=== PATIENT | female | born 1955 | race Hispanic/Latino ===

== ENCOUNTER 2020-11-26 | Emergency (ER) | payer MEDICARE, OTHER ==
[2020-11-26] MEDS ORDERED: KETOROLAC 60 MG VIAL (30MG/ML) ONE (01:33)
[2020-11-26] MEDS ORDERED: ORPHENADRINE CITRATE 30 MG/ML ML ONE (01:33)
[2021-04-15] MEDS ORDERED: CYCL10TA16 PO (13:03)
== END 2020-11-26 03:34 | disposition home or self-care (01) ==
LOC: EDH
DX: S09.90XA Unspecified injury of head, initial encounter (principal); M62.830 Muscle spasm of back; M54.5 Low back pain; E11.9 Type 2 diabetes mellitus without complications; Z90.49 Acquired absence of other specified parts of digestive tract; Z90.710 Acquired absence of both cervix and uterus; X58.XXXA Exposure to other specified factors, initial encounter; Y93.89 Activity, other specified; Y92.89 Other specified places as the place of occurrence of the external cause; Y99.8 Other external cause status
CPT/HCPCS: 70450; 72100; 96372 ×2; 99284; J1885; J2360

== ENCOUNTER 2021-04-15 12:01 | Emergency (ER) | payer MEDICARE ==
[~2021-04-15] VITALS: Ht 160 cm; Wt 56.7 kg
[2021-04-15] MEDS: KETOROLAC 60 MG VIAL (30MG/ML) IM SCH ×2 (12:48→13:20)
[2021-04-15 12:51] VITALS: BP 177/80
[2021-04-15 12:53] LABS: APPEARANCE,URINE Turbid (CLEAR); BILIRUBIN,URINE Negative (NEGATIVE); COLOR,URINE Yellow (YELLOW); GLUCOSE, URINE (UA) Negative (NEGATIVE); KETONES,URINE Negative (NEGATIVE); LEUKOCYTE ESTERASE ,URINE Large (NEGATIVE); NITRATE,URINE Negative (NEGATIVE); OCCULT BLOOD,URINE Large (NEGATIVE); PH,URINE 7.5 (5.0-8.0); PROTEIN,URINE POS 2+ mg/dL (NEGATIVE); UROBILINOGEN,URINE 0.2 mg/dL (0.2-1.0)
[2021-04-15] MEDS ORDERED: MELO7.5T12 PO (13:03)
[2021-04-15] MEDS ORDERED: CYCL10 PO (13:03)
[2021-04-15] MEDS ORDERED: CEPH500B PO (13:07)
[2021-04-15 13:09] LABS: BACTERIA,URINE Many /HPF (None Seen); SQUAMOUS EPITHELIAL CELL,UR 0-2 /HPF (0-2); WBC,URINE 26-50 /HPF (0-1)
[2021-04-15] MEDS ORDERED: CEFTRIAXONE 1G VIAL ONE (13:25)
[2021-04-15] MEDS ORDERED: LIDOCAINE HCL-MPF 1% 2ML VIAL ONE (13:25)
[2021-04-15] MEDS ORDERED: CEFTRIAXONE 1G VIAL IM SCH (13:30)
[2021-04-15] MEDS ORDERED: LIDOCAINE HCL-MPF 1% 2ML VIAL IV SCH (14:00)
== END 2021-04-15 13:45 | disposition home or self-care (01) ==
LOC: EDH 12:01
DX: S20.211A Contusion of right front wall of thorax, initial encounter (principal); N39.0 Urinary tract infection, site not specified; E11.9 Type 2 diabetes mellitus without complications; Z79.1 Long term (current) use of non-steroidal anti-inflammatories (NSAID); W22.8XXA Striking against or struck by other objects, initial encounter; Y93.89 Activity, other specified; Y92.89 Other specified places as the place of occurrence of the external cause; Y99.8 Other external cause status
CPT/HCPCS: 71101; 81001; 87077; 87088; 87186; 96372 ×2; 99284; J0696; J1885; J3490

== ENCOUNTER → 2022-02-12 | Outpatient (CLI) | payer MEDICARE ==
[~2022-02-12] MED LIST: AEC81 PO; CYCL10TA16 PO; FURO40TA7 PO; HYDR25 PO; LISI40TA9 PO; MELO7.5T12 PO; METF500S7 PO; METO-408 PO; REGADENOSON 0.4 MG/5 ML PF SYG IVP SCH
== END | disposition home or self-care (01) ==
LOC: RAH 09:00
PROVIDERS: ATTEND Internal Medicine Interventional Cardiology
DX: R07.9 Chest pain, unspecified (principal)
CPT/HCPCS: 78452; 96374; 93017; J2785; A9500 ×2

== ENCOUNTER 2022-04-25 09:14 | Inpatient (IN) | payer MEDICARE ==
[~2022-04-25] VITALS: Ht 160 cm; Wt 60.4 kg
[~2022-04-25 09:14] MED LIST changes: -METF500S7 PO; +METF500S9 PO; -REGADENOSON 0.4 MG/5 ML PF SYG IVP SCH
[2022-04-25] MEDS ORDERED: IPRATROPIUM/ALBUTEROL SULFATE 3 ML SOLUTION IH ONE (09:30)
[2022-04-25 09:35] LABS: BASOPHILS % (AUTO) 0.5 % (0.0-5.0); EOSINOPHILS % (AUTO) 1.2 % (0.0-8.0); HEMATOCRIT 28.9 % (36-48); MEAN CORPUSCULAR HEMOGLOBIN 29.9 pg (27.0-33.0); MEAN CORPUSCULAR HGB CONC 35.6 g/dL (32.0-36.0); MONOCYTES % (AUTO) 10.4 % (3.0-13.0); NEUTROPHILS % (AUTO) 62.5 % (40.0-77.0); PLATELET COUNT (AUTO) 232 K/uL (130-400); RED BLOOD CELL COUNT(AUTO) 3.44 MIL/uL (4.00-5.50); RED CELL DISTRIBUTION WIDTH 12.3 % (11.0-15.5); WHITE BLOOD COUNT (AUTO) 5.7 K/uL (4.8-10.8)
[2022-04-25 09:55] LABS: B-TYPE NATRIURETIC PEPTIDE 1150 pg/mL (0-100)
[2022-04-25 09:57] LABS: ALBUMIN 3.2 g/dL (3.5-5.0); CREATININE 0.8 mg/dL (0.5-1.5); POTASSIUM 4.2 mmol/L (3.5-5.1)
[2022-04-25 10:01] LABS: MAGNESIUM 1.8 mg/dL (1.80-2.40); TOTAL PROTEIN, SERUM 6.7 g/dL (6.0-8.3)
[2022-04-25] MEDS ORDERED: METO-408 PO (10:41)
[2022-04-25] MEDS ORDERED: METF-444 PO (10:41)
[2022-04-25] MEDS ORDERED: AMLO-257 PO (10:41)
[2022-04-25] MEDS: FUROSEMIDE 40MG VIAL IV SCH ×2 (10:49→20:56)
[2022-04-25] MEDS ORDERED: CLONIDINE HCL 0.1 MG TABLET PO PRN ×2 (11:00)
[2022-04-25] MEDS ORDERED: ACETAMINOPHEN 650 MG SUPPOSITORY RC PRN (11:00)
[2022-04-25] MEDS ORDERED: ACETAMINOPHEN 325 MG TAB PO PRN (11:00)
[2022-04-25] MEDS ORDERED: ONDANSETRON 4MG INJ IVP PRN (11:00)
[2022-04-25] MEDS ORDERED: LACTULOSE 20 GM/30 ML UDCUP PO PRN (11:00)
[2022-04-25 11:28] LABS: APPEARANCE,URINE CLOUDY (CLEAR); BILIRUBIN,URINE NEGATIVE (NEGATIVE); COLOR,URINE YELLOW (YELLOW); GLUCOSE, URINE (UA) NEGATIVE (NEGATIVE); KETONES,URINE 10 mg/dL (NEGATIVE); LEUKOCYTE ESTERASE ,URINE 500 Leu/uL (NEGATIVE); NITRATE,URINE 1+ (NEGATIVE); PROTEIN,URINE 100 mg/dL (NEGATIVE); UROBILINOGEN,URINE 0.2 mg/dL (0.2-1.0)
[2022-04-25] MEDS: PANTOPRAZOLE 40 MG TAB DR PO SCH (11:37)
[2022-04-25 11:41] LABS: BACTERIA,URINE MOD /HPF (None Seen); SQUAMOUS EPITHELIAL CELL,UR RARE /HPF (0-2); WBC,URINE TNTC /HPF (0-1)
[2022-04-25] MEDS ORDERED: METOPROLOL TARTRATE 25 MG TAB PO ONE (17:30)
[2022-04-25] MEDS: CEFTRIAXONE 1G VIAL IVP SCH ×2 (17:30→19:27)
[2022-04-25] MEDS ORDERED: AMLODIPINE 5 MG TAB PO ONE (17:30)
[2022-04-25 17:55] VITALS: BP 162/94
[2022-04-25 20:13] VITALS: BP 164/94
[2022-04-25] MEDS: SODIUM CHLORIDE 1,000 MG TAB PO SCH (20:55)
[2022-04-25] MEDS: METOPROLOL SUCCINATE 25 MG TAB.SR.24H PO SCH ×2 (20:55→21:00)
[2022-04-25 22:55] VITALS: BP 159/85
[2022-04-25 22:56] LABS: CREATINE KINASE, TOTAL 36 U/L (21-232); MYOGLOBIN 89 ng/mL (10-92)
[2022-04-26 03:23] VITALS: BP 152/79
[2022-04-26 05:22] LABS: BASOPHILS % (AUTO) 0.7 % (0.0-5.0); EOSINOPHILS % (AUTO) 1.2 % (0.0-8.0); HEMATOCRIT 28.3 % (36-48); MEAN CORPUSCULAR HEMOGLOBIN 29.8 pg (27.0-33.0); MEAN CORPUSCULAR HGB CONC 35.3 g/dL (32.0-36.0); MEAN CORPUSCULAR VOLUME 84.2 fL (79-99); MONOCYTES % (AUTO) 11.2 % (3.0-13.0); NEUTROPHILS % (AUTO) 59.6 % (40.0-77.0); PLATELET COUNT (AUTO) 231 K/uL (130-400); RED BLOOD CELL COUNT(AUTO) 3.36 MIL/uL (4.00-5.50); RED CELL DISTRIBUTION WIDTH 12.3 % (11.0-15.5); WHITE BLOOD COUNT (AUTO) 5.8 K/uL (4.8-10.8)
[2022-04-26 05:54] LABS: CREATININE 0.7 mg/dL (0.5-1.5); MAGNESIUM 1.7 mg/dL (1.80-2.40); PHOSPHORUS 4.8 mg/dL (2.5-4.9); POTASSIUM 3.3 mmol/L (3.5-5.1); THYROID STIMULATING HORMONE 3.96 uIU/mL (0.36-3.74)
[2022-04-26 06:06] LABS: B-TYPE NATRIURETIC PEPTIDE 1200 pg/mL (0-100)
[2022-04-26] MEDS ORDERED: LIDOCAINE HCL-MPF 1% 2ML VIAL IV PRN (06:30)
[2022-04-26] MEDS ORDERED: KCL 20 MEQ ERTAB PO PRN (06:30)
[2022-04-26] MEDS ORDERED: POTASSIUM CHLORIDE 20MEQ/100ML 100 ML IV PRN (06:30)
[2022-04-26 08:00] VITALS: BP 160/85
[2022-04-26] MEDS ORDERED: AMLODIPINE 5 MG TAB PO SCH (09:00)
[2022-04-26] MEDS: POTASSIUM CHLORIDE 10% ELIXIR 20 MEQ/15 ML UDCUP PO PRN ×2 (10:59→17:24)
[2022-04-26] MEDS: ASPIRIN 81MG CHEW TAB PO SCH (11:01)
[2022-04-26] MEDS: SODIUM CHLORIDE 1,000 MG TAB PO SCH ×2 (11:03→21:21)
[2022-04-26] MEDS: METOPROLOL SUCCINATE 25 MG TAB.SR.24H PO SCH ×2 (11:03→21:21)
[2022-04-26] MEDS: ENOXAPARIN SODIUM 40 MG/0.4 ML SYRINGE SQ SCH (11:06)
[2022-04-26] MEDS: FUROSEMIDE 40MG VIAL IV SCH ×2 (11:07→23:20)
[2022-04-26] MEDS: PANTOPRAZOLE 40 MG TAB DR PO SCH (11:09)
[2022-04-26 11:50] VITALS: BP 169/85
[2022-04-26 16:00] VITALS: BP 156/81
[2022-04-26] MEDS: CEFTRIAXONE 1G VIAL IVP SCH (17:23)
[2022-04-26 20:35] VITALS: BP 145/77
[2022-04-26 23:45] VITALS: BP 161/78
[2022-04-27 04:42] VITALS: BP 159/74
[2022-04-27] MEDS: PANTOPRAZOLE 40 MG TAB DR PO SCH (06:40)
[2022-04-27 07:40] VITALS: BP 162/75
[2022-04-27] MEDS: FUROSEMIDE 40MG VIAL IV SCH (09:44)
[2022-04-27] MEDS: LISINOPRIL 10 MG TABLET PO SCH (09:45)
[2022-04-27] MEDS: SODIUM CHLORIDE 1,000 MG TAB PO SCH (09:45)
[2022-04-27] MEDS: ASPIRIN 81MG CHEW TAB PO SCH (09:45)
[2022-04-27] MEDS: SPIRONOLACTONE 25 MG TAB PO SCH ×3 (09:45→23:04)
[2022-04-27] MEDS: METOPROLOL SUCCINATE 50 MG TAB.SR.24H PO SCH (09:45)
[2022-04-27] MEDS: ENOXAPARIN SODIUM 40 MG/0.4 ML SYRINGE SQ SCH (09:45)
[2022-04-27] MEDS ORDERED: MAGNESIUM 2GM PREMIX 50ML 50 ML IV PRN (10:00)
[2022-04-27 10:26] LABS: HEMATOCRIT 32.9 % (36-48); MEAN CORPUSCULAR HEMOGLOBIN 29.5 pg (27.0-33.0); MEAN CORPUSCULAR HGB CONC 34.3 g/dL (32.0-36.0); MEAN CORPUSCULAR VOLUME 85.9 fL (79-99); RED BLOOD CELL COUNT(AUTO) 3.83 MIL/uL (4.00-5.50); RED CELL DISTRIBUTION WIDTH 12.7 % (11.0-15.5); WHITE BLOOD COUNT (AUTO) 6.4 K/uL (4.8-10.8)
[2022-04-27 10:34] LABS: CREATININE 0.9 mg/dL (0.5-1.5)
[2022-04-27 11:56] VITALS: BP 152/74
[2022-04-27 16:00] VITALS: BP_SYST 141; BP_SYST 171; BP_DIAS 83
[2022-04-27] MEDS: CEFTRIAXONE 1G VIAL IVP SCH (17:27)
[2022-04-27 20:00] VITALS: BP 142/77
[2022-04-27] MEDS: LISINOPRIL 20 MG TABLET PO SCH (23:04)
[2022-04-28] VITALS: BP 137/69
[2022-04-28 04:00] VITALS: BP 125/85
[2022-04-28 05:41] LABS: CREATININE 0.9 mg/dL (0.5-1.5); POTASSIUM 3.4 mmol/L (3.5-5.1)
[2022-04-28 08:00] VITALS: BP 175/80
[2022-04-28] MEDS: ENOXAPARIN SODIUM 40 MG/0.4 ML SYRINGE SQ SCH (10:20)
[2022-04-28] MEDS: POTASSIUM CHLORIDE 10% ELIXIR 20 MEQ/15 ML UDCUP PO PRN (10:20)
[2022-04-28] MEDS: METOPROLOL SUCCINATE 50 MG TAB.SR.24H PO SCH (10:21)
[2022-04-28] MEDS: LISINOPRIL 20 MG TABLET PO SCH ×3 (10:21→20:30)
[2022-04-28] MEDS: SPIRONOLACTONE 25 MG TAB PO SCH ×2 (10:21→20:27)
[2022-04-28] MEDS: LISINOPRIL 10 MG TABLET PO SCH (10:21)
[2022-04-28] MEDS: PANTOPRAZOLE 40 MG TAB DR PO SCH (10:21)
[2022-04-28] MEDS: FUROSEMIDE 40 MG TABLET PO SCH ×2 (10:21→16:29)
[2022-04-28] MEDS: ASPIRIN 81MG CHEW TAB PO SCH (10:21)
[2022-04-28 11:37] VITALS: BP 164/83
[2022-04-28 16:00] VITALS: BP 139/73
[2022-04-28 20:00] VITALS: BP 149/77
[2022-04-29] VITALS: BP 139/72
[2022-04-29 04:00] VITALS: BP 161/76
[2022-04-29 05:30] LABS: HEMATOCRIT 26.9 % (36-48); MEAN CORPUSCULAR HGB CONC 34.2 g/dL (32.0-36.0); MEAN CORPUSCULAR VOLUME 87.6 fL (79-99); RED BLOOD CELL COUNT(AUTO) 3.07 MIL/uL (4.00-5.50); RED CELL DISTRIBUTION WIDTH 12.8 % (11.0-15.5); WHITE BLOOD COUNT (AUTO) 5.8 K/uL (4.8-10.8)
[2022-04-29 05:58] LABS: ALBUMIN 2.7 g/dL (3.5-5.0); MAGNESIUM 1.7 mg/dL (1.80-2.40); POTASSIUM 4.2 mmol/L (3.5-5.1); TOTAL PROTEIN, SERUM 5.7 g/dL (6.0-8.3)
[2022-04-29] MEDS: PANTOPRAZOLE 40 MG TAB DR PO SCH (06:24)
[2022-04-29 08:00] VITALS: BP 157/72
[2022-04-29] MEDS ORDERED: LEVOFLOXACIN 750 MG/D5W 150 ML 150 ML IV SCH (09:00)
[2022-04-29] MEDS: LISINOPRIL 20 MG TABLET PO SCH (09:20)
[2022-04-29] MEDS: METOPROLOL SUCCINATE 50 MG TAB.SR.24H PO SCH (09:20)
[2022-04-29] MEDS: SPIRONOLACTONE 25 MG TAB PO SCH (09:20)
[2022-04-29] MEDS: ENOXAPARIN SODIUM 40 MG/0.4 ML SYRINGE SQ SCH (09:20)
[2022-04-29] MEDS: LISINOPRIL 10 MG TABLET PO SCH (09:21)
[2022-04-29] MEDS: FUROSEMIDE 40 MG TABLET PO SCH (09:21)
[2022-04-29] MEDS: ASPIRIN 81MG CHEW TAB PO SCH (09:21)
[2022-04-29 12:00] VITALS: BP 156/68
[2022-04-29] MEDS ORDERED: SPIR25TA6 PO (14:22)
[2022-04-29] MEDS ORDERED: ASPI-1005 PO (14:22)
[2022-04-29] MEDS ORDERED: LEVO750T68 PO (14:22)
[2022-04-29] MEDS ORDERED: LISI20TA24 PO (14:22)
[2022-04-29] MEDS ORDERED: METO50TA9 PO (14:22)
[2022-04-29 16:00] VITALS: BP 150/77
== END 2022-04-29 17:45 | disposition home or self-care (01) | DRG 291 ==
LOC: EDH 09:14 → EDHIP 15:24 → 3BH 17:05
PROVIDERS: ADMIT Internal Medicine Critical Care Medicine; ATTEND Internal Medicine Critical Care Medicine
DX: I11.0 Hypertensive heart disease with heart failure (principal); I50.43 Acute on chronic combined systolic (congestive) and diastolic (congestive) heart failure; J96.01 Acute respiratory failure with hypoxia; E87.1 Hypo-osmolality and hyponatremia; N39.0 Urinary tract infection, site not specified; J91.8 Pleural effusion in other conditions classified elsewhere; D64.9 Anemia, unspecified; N20.0 Calculus of kidney; E11.9 Type 2 diabetes mellitus without complications; T50.2X5A Adverse effect of carbonic-anhydrase inhibitors, benzothiadiazides and other diuretics, initial encounter; F41.9 Anxiety disorder, unspecified; I34.0 Nonrheumatic mitral (valve) insufficiency; Z90.710 Acquired absence of both cervix and uterus; Z83.3 Family history of diabetes mellitus; Z82.49 Family history of ischemic heart disease and other diseases of the circulatory system; Y92.89 Other specified places as the place of occurrence of the external cause
CPT/HCPCS: 36415; 71045; 74176; 78582; 80048; 80053; 81001; 82550; 83735; 83874; 83880; 83930; 83935; 84100; 84443; 84484; 85025; 85027; 85378; 87040; 87077; 87088; 87186; 93005; 93306; 93356; 94640; 94760; 97039; A9540; A9558; G0378; J0696; J1650; J1940; J1956; J3475

== ENCOUNTER 2022-05-14 07:17 | Day surgery (SDC) | payer MEDICARE ==
[2022-05-12 16:02] LABS: BASOPHILS % (AUTO) 0.8 % (0.0-5.0); HEMATOCRIT 28.6 % (36-48); LYMPHOCYTES % (AUTO) 37.5 % (21.0-51.0); MEAN CORPUSCULAR HEMOGLOBIN 29.7 pg (27.0-33.0); MEAN CORPUSCULAR HGB CONC 33.6 g/dL (32.0-36.0); MEAN CORPUSCULAR VOLUME 88.5 fL (79-99); MONOCYTES % (AUTO) 9.7 % (3.0-13.0); NEUTROPHILS % (AUTO) 50.6 % (40.0-77.0); PLATELET COUNT (AUTO) 202 K/uL (130-400); RED BLOOD CELL COUNT(AUTO) 3.23 MIL/uL (4.00-5.50); RED CELL DISTRIBUTION WIDTH 12.6 % (11.0-15.5); WHITE BLOOD COUNT (AUTO) 5.3 K/uL (4.8-10.8)
[2022-05-12 16:04] LABS: APPEARANCE,URINE CLEAR (CLEAR); BILIRUBIN,URINE NEGATIVE (NEGATIVE); COLOR,URINE LIGHT-YELLOW (YELLOW); GLUCOSE, URINE (UA) NEGATIVE (NEGATIVE); KETONES,URINE NEGATIVE (NEGATIVE); LEUKOCYTE ESTERASE ,URINE NEGATIVE Leu/uL (NEGATIVE); NITRATE,URINE NEGATIVE (NEGATIVE); OCCULT BLOOD,URINE NEGATIVE (NEGATIVE); PH,URINE 7.5 (5.0-8.0); PROTEIN,URINE 50 mg/dL (NEGATIVE); UROBILINOGEN,URINE 0.2 mg/dL (0.2-1.0)
[2022-05-12 16:11] LABS: SQUAMOUS EPITHELIAL CELL,UR RARE /HPF (0-2); WBC,URINE 0-1 /HPF (0-1)
[2022-05-12 16:11] LABS: CREATININE 0.8 mg/dL (0.5-1.5); POTASSIUM 4.3 mmol/L (3.5-5.1)
[2022-05-12 16:15] LABS: INR 0.96 (0.85-1.15); PROTHROMBIN TIME 10.5 SEC (9.6-11.6)
[2022-05-12 16:16] LABS: PARTIAL THROMBOPLASTIN TIME 27.7 SEC (26.3-35.5)
[2022-05-13 09:33] VITALS: BP 166/77
[2022-05-14] VITALS (10 sets, daily range): BP systolic 110–162; BP diastolic 47–78
[~2022-05-14] VITALS: Ht 160 cm; Wt 56.1 kg
[~2022-05-14 07:17] MED LIST changes: -AEC81 PO; +AMLO-257 PO; -CYCL10TA16 PO; -FURO40TA7 PO; -HYDR25 PO; -LISI40TA9 PO; -MELO7.5T12 PO; +METF-444 PO; -METF500S9 PO
[2022-05-14] MEDS ORDERED: 0.9%NACL 1000ML 1,000 ML IV SCH (08:00)
[2022-05-14] MEDS ORDERED: DiphenhydrAMINE HCL 50 MG/ML VIAL IVP SCH (08:00)
[2022-05-14 08:03] LABS: CREATININE 0.8 mg/dL (0.5-1.5); POTASSIUM 4.9 mmol/L (3.5-5.1)
[2022-05-14] MEDS ORDERED: BIVALIRUDIN 250 MG/VIAL IV ONE (09:30)
[2022-05-14] MEDS ORDERED: IOHEXOL 350 MG/ML 100ML INFUS..BTL IV ONE (09:30)
[2022-05-14] MEDS ORDERED: NITROGLYCERIN 50MG VIAL ONE (09:30)
[2022-05-14] MEDS ORDERED: MIDAZOLAM HCL 1 MG/ML 2ML VIAL ONE (09:30)
[2022-05-14] MEDS ORDERED: HEPARIN 10,000 UNIT/10ML (1,000 UNIT/ML) VIAL ONE (09:30)
[2022-05-14] MEDS ORDERED: FENTANYL CITRATE PF 50 MCG/1 ML 2ML VIAL ONE (09:31)
[2022-05-14] MEDS ORDERED: IOHEXOL-350 50ML VIAL IV ONE (09:32)
[2022-05-14] MEDS ORDERED: NITROGLYCERIN 4.1 GM SPRAY TL ONE (10:52)
[2022-05-14] MEDS ORDERED: HYDRALAZINE 20MG/ML VIAL ONE ×2 (10:54→11:01)
== END 2022-05-14 16:00 | disposition home or self-care (01) ==
LOC: DAH 07:17
PROVIDERS: ATTEND Internal Medicine Interventional Cardiology
DX: I25.119 Atherosclerotic heart disease of native coronary artery with unspecified angina pectoris (principal); I34.2 Nonrheumatic mitral (valve) stenosis; I11.0 Hypertensive heart disease with heart failure; I50.43 Acute on chronic combined systolic (congestive) and diastolic (congestive) heart failure; E11.9 Type 2 diabetes mellitus without complications; Z79.01 Long term (current) use of anticoagulants; Z79.899 Other long term (current) drug therapy; Z82.49 Family history of ischemic heart disease and other diseases of the circulatory system; Z83.3 Family history of diabetes mellitus; Z98.890 Other specified postprocedural states; Z90.49 Acquired absence of other specified parts of digestive tract; Z90.710 Acquired absence of both cervix and uterus
CPT/HCPCS: 80048 ×2; 85025; 85610; 85730; 81001; 36415 ×2; 93005; 93460; 82948 ×2; C1894 ×2; C1769; C1760; Q9965 ×2; J1200; J3010; J7030; J0360 ×2; J2250; J1644; J3490; Q9967; A4215; A4222; A4221; A4663; A4216; A4606; A4223 ×3; 99156; 99157; J0583

== ENCOUNTER → 2022-12-25 | Outpatient (CLI) | payer MEDICARE ==
[2022-12-25 14:32] LABS: CREATININE 1.2 mg/dL (0.5-1.5); MAGNESIUM 2.2 mg/dL (1.80-2.40); POTASSIUM 4.4 mmol/L (3.5-5.1)
== END | disposition home or self-care (01) ==
LOC: LAB 09:52
PROVIDERS: ATTEND Internal Medicine Cardiovascular Disease
DX: E87.1 Hypo-osmolality and hyponatremia (principal)
CPT/HCPCS: 36415; 80048; 83735; 83880

== ENCOUNTER → 2023-03-08 | Outpatient (CLI) | payer MEDICARE ==
[2023-03-08 12:19] LABS: CREATININE 1.2 mg/dL (0.5-1.5); POTASSIUM 4.4 mmol/L (3.5-5.1)
== END | disposition home or self-care (01) ==
LOC: LAB 08:49
PROVIDERS: ATTEND Internal Medicine Cardiovascular Disease
DX: I50.22 Chronic systolic (congestive) heart failure (principal); E11.9 Type 2 diabetes mellitus without complications
CPT/HCPCS: 36415; 80048

== ENCOUNTER → 2023-04-12 | Outpatient (CLI) | payer MEDICARE ==
[2023-04-12 11:55] LABS: BASOPHILS # (AUTO) 0.04 K/uL (0.00-0.20); BASOPHILS % (AUTO) 0.6 % (0.0-5.0); EOSINOPHILS # (AUTO) 0.21 K/uL (0.00-0.70); EOSINOPHILS % (AUTO) 3.1 % (0.0-8.0); HEMATOCRIT 31.8 % (36-48); IMMATURE GRANULOCYTE ABSOLUTE 0.07 K/uL (0-1); LYMPHOCYTES # (AUTO) 1.6 K/uL (1.0-4.8); MEAN CORPUSCULAR HEMOGLOBIN 30.6 pg (27.0-33.0); MEAN CORPUSCULAR HGB CONC 31.8 g/dL (32.0-36.0); MEAN CORPUSCULAR VOLUME 96.4 fL (79-99); MONOCYTES # (AUTO) 0.6 K/uL (0.1-1.0); MONOCYTES % (AUTO) 9.3 % (3.0-13.0); NEUTROPHILS # (AUTO) 4.2 K/uL (1.8-7.7); PLATELET COUNT (AUTO) 234 K/uL (130-400); RED CELL DISTRIBUTION WIDTH 15.2 % (11.0-15.5); WHITE BLOOD COUNT (AUTO) 6.8 K/uL (4.8-10.8)
[2023-04-12 12:05] LABS: INR < 0.93 (0.85-1.15); PROTHROMBIN TIME 10.4 SEC (9.6-11.6)
[2023-04-12 12:06] LABS: PARTIAL THROMBOPLASTIN TIME 27.6 SEC (26.3-35.5); POTASSIUM 4.5 mmol/L (3.5-5.1)
== END | disposition home or self-care (01) ==
LOC: LAB 09:29
PROVIDERS: ATTEND Internal Medicine Cardiovascular Disease
DX: I25.810 Atherosclerosis of coronary artery bypass graft(s) without angina pectoris (principal); I25.2 Old myocardial infarction; I70.239 Atherosclerosis of native arteries of right leg with ulceration of unspecified site; I50.42 Chronic combined systolic (congestive) and diastolic (congestive) heart failure; Z95.1 Presence of aortocoronary bypass graft; Z79.899 Other long term (current) drug therapy
CPT/HCPCS: 36415; 80048; 85025; 85610; 85730

== ENCOUNTER → 2023-05-25 | Outpatient (CLI) | payer MEDICARE ==
[2023-05-25 12:21] LABS: POTASSIUM 4.1 mmol/L (3.5-5.1)
== END | disposition home or self-care (01) ==
LOC: LAB 09:06
PROVIDERS: ATTEND Internal Medicine Cardiovascular Disease
DX: I25.810 Atherosclerosis of coronary artery bypass graft(s) without angina pectoris (principal); R53.83 Other fatigue; D64.9 Anemia, unspecified
CPT/HCPCS: 36415; 80048; 83735; 83880

== ENCOUNTER → 2023-06-07 | Outpatient (CLI) | payer MEDICARE ==
[2023-06-07 11:57] LABS: CREATININE 1.1 mg/dL (0.5-1.5); MAGNESIUM 2.4 mg/dL (1.80-2.40); POTASSIUM 4.2 mmol/L (3.5-5.1)
[2023-06-07 11:59] LABS: BASOPHILS # (AUTO) 0.04 K/uL (0.00-0.20); BASOPHILS % (AUTO) 0.8 % (0.0-5.0); EOSINOPHILS % (AUTO) 1.9 % (0.0-8.0); HEMATOCRIT 36.7 % (36-48); IMMATURE GRANULOCYTE ABSOLUTE 0.02 K/uL (0-1); LYMPHOCYTES # (AUTO) 1.6 K/uL (1.0-4.8); LYMPHOCYTES % (AUTO) 31.1 % (21.0-51.0); MEAN CORPUSCULAR HEMOGLOBIN 31.3 pg (27.0-33.0); MEAN CORPUSCULAR HGB CONC 31.9 g/dL (32.0-36.0); MEAN CORPUSCULAR VOLUME 98.1 fL (79-99); MONOCYTES # (AUTO) 0.6 K/uL (0.1-1.0); MONOCYTES % (AUTO) 10.4 % (3.0-13.0); NEUTROPHILS # (AUTO) 2.9 K/uL (1.8-7.7); NEUTROPHILS % (AUTO) 55.4 % (40.0-77.0); PLATELET COUNT (AUTO) 268 K/uL (130-400); RED BLOOD CELL COUNT(AUTO) 3.74 MIL/uL (4.00-5.50); RED CELL DISTRIBUTION WIDTH 13.4 % (11.0-15.5); WHITE BLOOD COUNT (AUTO) 5.3 K/uL (4.8-10.8)
== END | disposition home or self-care (01) ==
LOC: LAB 08:49
PROVIDERS: ATTEND Internal Medicine Cardiovascular Disease
DX: I50.22 Chronic systolic (congestive) heart failure (principal); D64.9 Anemia, unspecified
CPT/HCPCS: 36415; 80048; 83735; 85025

== ENCOUNTER 2024-01-14 09:32 | Emergency (ER) | payer MEDICARE ==
[~2024-01-14] VITALS: Ht 160 cm; Wt 59.0 kg
[2024-01-14 10:20] LABS: BASOPHILS # (AUTO) 0.02 K/uL (0.00-0.20); BASOPHILS % (AUTO) 0.4 % (0.0-5.0); EOSINOPHILS # (AUTO) 0.05 K/uL (0.00-0.70); EOSINOPHILS % (AUTO) 1.1 % (0.0-8.0); HEMATOCRIT 34.5 % (36-48); IMMATURE GRANULOCYTE ABSOLUTE 0.02 K/uL (0-1); LYMPHOCYTES % (AUTO) 21.3 % (21.0-51.0); MEAN CORPUSCULAR HEMOGLOBIN 30.5 pg (27.0-33.0); MEAN CORPUSCULAR HGB CONC 33.9 g/dL (32.0-36.0); MEAN CORPUSCULAR VOLUME 90.1 fL (79-99); MONOCYTES # (AUTO) 0.4 K/uL (0.1-1.0); MONOCYTES % (AUTO) 8.2 % (3.0-13.0); NEUTROPHILS # (AUTO) 3.3 K/uL (1.8-7.7); NEUTROPHILS % (AUTO) 68.6 % (40.0-77.0); PLATELET COUNT (AUTO) 196 K/uL (130-400); RED BLOOD CELL COUNT(AUTO) 3.83 MIL/uL (4.00-5.50); RED CELL DISTRIBUTION WIDTH 13.7 % (11.0-15.5); WHITE BLOOD COUNT (AUTO) 4.7 K/uL (4.8-10.8)
[2024-01-14 10:30] LABS: CREATININE 1.1 mg/dL (0.5-1.0); POTASSIUM 3.6 mmol/L (3.5-5.1)
[2024-01-14 10:34] LABS: ALBUMIN 3.4 g/dL (3.5-5.0); BILIRUBIN,TOTAL 0.6 mg/dL (0.2-1.0); TOTAL PROTEIN, SERUM 6.7 g/dL (6.0-8.3)
[2024-01-14 11:09] LABS: B-TYPE NATRIURETIC PEPTIDE 2950 pg/mL (0-100)
[2024-01-14] MEDS: FUROSEMIDE 100MG VIAL IVP ONE (11:22)
[2024-01-14] MEDS ORDERED: FURO80TA87 PO (12:31)
[2024-01-14 14:20] VITALS: BP 132/78; PULSE 78; RESP 18; O2SAT 98
== END 2024-01-14 14:22 | disposition home or self-care (01) ==
LOC: EDH 09:32
DX: I13.0 Hypertensive heart and chronic kidney disease with heart failure and stage 1 through stage 4 chronic kidney disease, or unspecified chronic kidney disease (principal); E11.22 Type 2 diabetes mellitus with diabetic chronic kidney disease; N18.9 Chronic kidney disease, unspecified; J90 Pleural effusion, not elsewhere classified; Z79.84 Long term (current) use of oral hypoglycemic drugs; Z90.49 Acquired absence of other specified parts of digestive tract; Z90.710 Acquired absence of both cervix and uterus; Z95.1 Presence of aortocoronary bypass graft
CPT/HCPCS: 99285; 96374; 71046; 84484; 80053; 83880; 85025; 36415; 93005; J1940

== ENCOUNTER 2024-01-18 10:19 | Observation (INO) | payer MEDICARE ==
[~2024-01-18] VITALS: Ht 160 cm; Wt 59.9 kg
[~2024-01-18 10:19] MED LIST changes: +FURO80TA87 PO
[2024-01-18 10:43] LABS: BASOPHILS # (AUTO) 0.02 K/uL (0.00-0.20); BASOPHILS % (AUTO) 0.4 % (0.0-5.0); EOSINOPHILS # (AUTO) 0.06 K/uL (0.00-0.70); EOSINOPHILS % (AUTO) 1.3 % (0.0-8.0); HEMATOCRIT 38.2 % (36-48); IMMATURE GRANULOCYTE ABSOLUTE 0.02 K/uL (0-1); LYMPHOCYTES % (AUTO) 22.8 % (21.0-51.0); MEAN CORPUSCULAR HEMOGLOBIN 29.8 pg (27.0-33.0); MEAN CORPUSCULAR HGB CONC 32.7 g/dL (32.0-36.0); MEAN CORPUSCULAR VOLUME 91.2 fL (79-99); MONOCYTES # (AUTO) 0.4 K/uL (0.1-1.0); NEUTROPHILS % (AUTO) 67.1 % (40.0-77.0); PLATELET COUNT (AUTO) 196 K/uL (130-400); RED BLOOD CELL COUNT(AUTO) 4.19 MIL/uL (4.00-5.50); RED CELL DISTRIBUTION WIDTH 13.7 % (11.0-15.5); WHITE BLOOD COUNT (AUTO) 4.5 K/uL (4.8-10.8)
[2024-01-18 10:51] LABS: CREATININE 1.1 mg/dL (0.5-1.0)
[2024-01-18 10:54] LABS: INR 0.96 (0.85-1.15); PROTHROMBIN TIME 11.4 SEC (9.6-11.6)
[2024-01-18 10:55] LABS: PARTIAL THROMBOPLASTIN TIME 27.6 SEC (26.3-35.5)
[2024-01-18 11:32] LABS: B-TYPE NATRIURETIC PEPTIDE 3140 pg/mL (0-100)
[2024-01-18] MEDS ORDERED: ACETAMINOPHEN 500 MG TABLET PO PRN (12:30)
[2024-01-18] MEDS: FUROSEMIDE 40MG VIAL IV ONE (13:33)
[2024-01-18] MEDS: CARVEDILOL 6.25 MG TABLET PO SCH (13:33)
[2024-01-18] MEDS ORDERED: FURO40TA5 PO (15:04)
[2024-01-18] MEDS ORDERED: SPIR25TA PO (15:04)
[2024-01-18] MEDS ORDERED: CARV6.2579 PO (15:04)
[2024-01-18] MEDS ORDERED: SACU1TAB PO (15:04)
[2024-01-18] MEDS: HYDRALAZINE 20MG/ML VIAL IV PRN (16:03)
[2024-01-18] MEDS: FUROSEMIDE 40MG VIAL IV SCH (18:03)
[2024-01-18 19:51] VITALS: BP 157/89; PULSE 88; RESP 16
[2024-01-18 21:59] VITALS: O2SAT 97
[2024-01-18] MEDS: FAMOTIDINE 20MG VIAL IV SCH (21:59)
[2024-01-19] VITALS (7 sets, daily range): BP systolic 153–172; BP diastolic 76–91; PULSE 81–86; RESP 16–20; O2SAT 94–97
[2024-01-19] MEDS: ALPRAZOLAM 0.5 MG TABLET PO ONE (01:15)
[2024-01-19 08:41] LABS: BASOPHILS # (AUTO) 0.02 K/uL (0.00-0.20); BASOPHILS % (AUTO) 0.5 % (0.0-5.0); EOSINOPHILS # (AUTO) 0.08 K/uL (0.00-0.70); HEMATOCRIT 32.9 % (36-48); IMMATURE GRANULOCYTE ABSOLUTE 0.01 K/uL (0-1); MEAN CORPUSCULAR HEMOGLOBIN 29.5 pg (27.0-33.0); MEAN CORPUSCULAR HGB CONC 33.1 g/dL (32.0-36.0); MEAN CORPUSCULAR VOLUME 88.9 fL (79-99); MONOCYTES # (AUTO) 0.4 K/uL (0.1-1.0); MONOCYTES % (AUTO) 10.5 % (3.0-13.0); NEUTROPHILS # (AUTO) 2.6 K/uL (1.8-7.7); NEUTROPHILS % (AUTO) 62.8 % (40.0-77.0); PLATELET COUNT (AUTO) 183 K/uL (130-400); RED CELL DISTRIBUTION WIDTH 13.8 % (11.0-15.5); WHITE BLOOD COUNT (AUTO) 4.1 K/uL (4.8-10.8)
[2024-01-19 08:47] LABS: CREATININE 1.1 mg/dL (0.5-1.0); MAGNESIUM 1.8 mg/dL (1.80-2.40); POTASSIUM 3.5 mmol/L (3.5-5.1)
[2024-01-19] MEDS: PANTOPRAZOLE 40 MG TAB DR PO SCH (09:46)
[2024-01-19] MEDS: SACUBITRIL/VALSARTAN 1 EACH TABLET PO SCH (09:46)
[2024-01-19] MEDS: SPIRONOLACTONE 25 MG TAB PO SCH (09:47)
[2024-01-19] MEDS: ASPIRIN 81 MG EC TAB PO SCH (09:47)
[2024-01-19] MEDS ORDERED: POTASSIUM CHLORIDE 20MEQ/100ML 100 ML IV PRN (12:30)
[2024-01-19] MEDS: CARVEDILOL 12.5 MG TABLET PO SCH (20:32)
[2024-01-19] MEDS: KCL 20 MEQ ERTAB PO PRN (20:32)
[2024-01-19] MEDS: MAGNESIUM 2GM PREMIX 50ML 50 ML IV PRN (20:33)
[2024-01-19] MEDS: POTASSIUM CHLORIDE 10% ELIXIR 20 MEQ/15 ML UDCUP PO PRN (23:02)
[2024-01-20] VITALS: BP 170/90; PULSE 83; RESP 17
[2024-01-20 04:00] VITALS: BP 138/60; PULSE 76; RESP 18
[2024-01-20 05:27] LABS: BASOPHILS # (AUTO) 0.03 K/uL (0.00-0.20); BASOPHILS % (AUTO) 0.7 % (0.0-5.0); EOSINOPHILS # (AUTO) 0.09 K/uL (0.00-0.70); EOSINOPHILS % (AUTO) 2.1 % (0.0-8.0); HEMATOCRIT 31.5 % (36-48); IMMATURE GRANULOCYTE ABSOLUTE 0.01 K/uL (0-1); LYMPHOCYTES # (AUTO) 1.1 K/uL (1.0-4.8); LYMPHOCYTES % (AUTO) 25.9 % (21.0-51.0); MEAN CORPUSCULAR HGB CONC 32.7 g/dL (32.0-36.0); MEAN CORPUSCULAR VOLUME 91.8 fL (79-99); MONOCYTES # (AUTO) 0.5 K/uL (0.1-1.0); MONOCYTES % (AUTO) 11.5 % (3.0-13.0); NEUTROPHILS # (AUTO) 2.6 K/uL (1.8-7.7); NEUTROPHILS % (AUTO) 59.6 % (40.0-77.0); PLATELET COUNT (AUTO) 159 K/uL (130-400); RED BLOOD CELL COUNT(AUTO) 3.43 MIL/uL (4.00-5.50); RED CELL DISTRIBUTION WIDTH 13.8 % (11.0-15.5); WHITE BLOOD COUNT (AUTO) 4.3 K/uL (4.8-10.8)
[2024-01-20 05:48] LABS: CREATININE 1.4 mg/dL (0.5-1.0); MAGNESIUM 2.1 mg/dL (1.80-2.40)
[2024-01-20 05:51] LABS: B-TYPE NATRIURETIC PEPTIDE 3060 pg/mL (0-100)
[2024-01-20 08:00] VITALS: O2SAT 96
[2024-01-20 08:14] VITALS: BP 160/79; PULSE 80; RESP 17
[2024-01-20] MEDS: SPIRONOLACTONE 25 MG TAB PO SCH (08:17)
[2024-01-20] MEDS: ENOXAPARIN SODIUM 30 MG/0.3 ML SQ SCH (08:20)
[2024-01-20 12:53] VITALS: BP 146/74; PULSE 75; RESP 17
[2024-01-20] MEDS ORDERED: AEC81 PO (15:57)
[2024-01-20] MEDS ORDERED: CARV12.580 PO (15:57)
[2024-01-20] MEDS ORDERED: SPIR25TA6 PO (15:57)
[2024-01-20] MEDS ORDERED: FURO40TA5 PO (16:02)
[2024-01-20] MEDS ORDERED: HYDRALAZINE 25MG TABLET PO SCH (21:00)
== END 2024-01-20 16:30 | disposition home or self-care (01) ==
LOC: EDH 10:19 → INTOOBSV 12:16 → EDHIP 12:16 → 2AH 19:30 → 3AH 01-19 14:57
PROVIDERS: ADMIT Internal Medicine; ATTEND Internal Medicine
DX: I11.0 Hypertensive heart disease with heart failure (principal); I50.43 Acute on chronic combined systolic (congestive) and diastolic (congestive) heart failure; I25.10 Atherosclerotic heart disease of native coronary artery without angina pectoris; E78.5 Hyperlipidemia, unspecified; Z95.1 Presence of aortocoronary bypass graft; E78.00 Pure hypercholesterolemia, unspecified; E11.9 Type 2 diabetes mellitus without complications; I25.5 Ischemic cardiomyopathy; I08.1 Rheumatic disorders of both mitral and tricuspid valves; J98.11 Atelectasis; I27.20 Pulmonary hypertension, unspecified; Z90.710 Acquired absence of both cervix and uterus; Z90.49 Acquired absence of other specified parts of digestive tract; Z79.899 Other long term (current) drug therapy
CPT/HCPCS: 96376 ×3; 99285; 84484 ×3; 80048 ×3; 83880 ×2; 85025 ×3; 85610; 85730; 36415 ×3; 71045; 71250; 93306; 96374; 96375 ×2; 93005; 83735 ×2; 82948 ×4; J3490 ×2; J0360 ×2; J1940 ×5; G0378 ×27; J3475; J1650

== ENCOUNTER 2024-04-08 16:11 | Observation (INO) | payer MEDICARE ==
[~2024-04-08] VITALS: Ht 160 cm; Wt 58.1 kg
[~2024-04-08 16:11] MED LIST changes: -AMLO-257 PO; +CARV6.25 PO; -FURO80TA87 PO; -METF-444 PO; -METO-408 PO; +SACU1TAB PO; +SPIR25TA6 PO
[2024-04-08 17:00] LABS: BASOPHILS # (AUTO) 0.01 K/uL (0.00-0.20); BASOPHILS % (AUTO) 0.2 % (0.0-5.0); EOSINOPHILS # (AUTO) 0.01 K/uL (0.00-0.70); EOSINOPHILS % (AUTO) 0.2 % (0.0-8.0); HEMATOCRIT 34.8 % (36-48); IMMATURE GRANULOCYTE ABSOLUTE 0.04 K/uL (0-1); LYMPHOCYTES # (AUTO) 0.7 K/uL (1.0-4.8); LYMPHOCYTES % (AUTO) 13.3 % (21.0-51.0); MEAN CORPUSCULAR HEMOGLOBIN 28.8 pg (27.0-33.0); MEAN CORPUSCULAR HGB CONC 33.3 g/dL (32.0-36.0); MEAN CORPUSCULAR VOLUME 86.4 fL (79-99); MONOCYTES # (AUTO) 0.2 K/uL (0.1-1.0); MONOCYTES % (AUTO) 4.6 % (3.0-13.0); NEUTROPHILS # (AUTO) 4.1 K/uL (1.8-7.7); NEUTROPHILS % (AUTO) 80.9 % (40.0-77.0); PLATELET COUNT (AUTO) 134 K/uL (130-400); RED BLOOD CELL COUNT(AUTO) 4.03 MIL/uL (4.00-5.50); RED CELL DISTRIBUTION WIDTH 15.4 % (11.0-15.5)
[2024-04-08 17:07] LABS: CREATININE 1.6 mg/dL (0.5-1.0); POTASSIUM 4.4 mmol/L (3.5-5.1)
[2024-04-08 17:20] LABS: B-TYPE NATRIURETIC PEPTIDE 3160 pg/mL (0-100)
[2024-04-08] MEDS: furoSEMIDE 100MG VIAL 10 MG/ML VIAL IVP ONE (18:54)
[2024-04-08 19:56] LABS: APPEARANCE,URINE CLEAR (CLEAR); BILIRUBIN,URINE NEGATIVE (NEGATIVE); COLOR,URINE LIGHT-YELLOW (YELLOW); GLUCOSE, URINE (UA) 500 mg/dL (NEGATIVE); KETONES,URINE NEGATIVE (NEGATIVE); LEUKOCYTE ESTERASE ,URINE NEGATIVE Leu/uL (NEGATIVE); NITRATE,URINE NEGATIVE (NEGATIVE); OCCULT BLOOD,URINE NEGATIVE (NEGATIVE); PH,URINE 5.5 (5.0-8.0); PROTEIN,URINE 70 mg/dL (NEGATIVE); UROBILINOGEN,URINE 0.2 mg/dL (0.2-1.0)
[2024-04-08 19:58] LABS: ADD UA MICROSCOPIC YES
[2024-04-08 19:59] LABS: BACTERIA,URINE MOD /HPF (None Seen); MUCUS,URINE RARE LPF (None Seen); SQUAMOUS EPITHELIAL CELL,UR RARE /HPF (0-2)
[2024-04-08] MEDS ORDERED: DEXTROSE 50%-WATER 50 ML DISP.SYRIN IV PRN (20:00)
[2024-04-08] MEDS ORDERED: GLUCAGON 1MG KIT 1 MG ML IM PRN (20:00)
[2024-04-08] MEDS ORDERED: NITROGLYCERIN 0.4 MG SL TAB SL PRN (20:00)
[2024-04-08] MEDS ORDERED: MAGNESIUM 2GM PREMIX 50ML 50 ML IV PRN (20:30)
[2024-04-08] MEDS ORDERED: POTASSIUM CHLORIDE 20MEQ/100ML 100 ML IV PRN (20:30)
[2024-04-08] MEDS ORDERED: POTASSIUM CHLORIDE 10% ELIXIR 20 MEQ/15 ML UDCUP PO PRN (20:30)
[2024-04-08] MEDS: FAMOTIDINE 20MG VIAL IV SCH (20:42)
[2024-04-08] MEDS: INSULIN humuLIN R 100 UNIT/ML 3ML SQ SCH (21:00)
[2024-04-08] MEDS ORDERED: hydrALAZine 20MG/ML VIAL IV PRN (21:00)
[2024-04-08] MEDS ORDERED: FURO40TA5 PO (21:40)
[2024-04-08 22:10] VITALS: BP 166/95; PULSE 68; RESP 18; TEMP 97.5
[2024-04-09] MEDS: NITROGLYCERIN 1GM OINT 1 INCH/1GM TD SCH (00:06)
[2024-04-09 03:00] VITALS: BP 147/80; PULSE 63; RESP 18; TEMP 97.6
[2024-04-09 05:59] LABS: BASOPHILS # (AUTO) 0.01 K/uL (0.00-0.20); BASOPHILS % (AUTO) 0.2 % (0.0-5.0); EOSINOPHILS # (AUTO) 0.03 K/uL (0.00-0.70); EOSINOPHILS % (AUTO) 0.6 % (0.0-8.0); HEMATOCRIT 31.4 % (36-48); IMMATURE GRANULOCYTE ABSOLUTE 0.01 K/uL (0-1); LYMPHOCYTES % (AUTO) 20.4 % (21.0-51.0); MEAN CORPUSCULAR HEMOGLOBIN 28.8 pg (27.0-33.0); MEAN CORPUSCULAR HGB CONC 33.4 g/dL (32.0-36.0); MEAN CORPUSCULAR VOLUME 86.3 fL (79-99); MONOCYTES # (AUTO) 0.4 K/uL (0.1-1.0); MONOCYTES % (AUTO) 9.1 % (3.0-13.0); NEUTROPHILS # (AUTO) 3.4 K/uL (1.8-7.7); NEUTROPHILS % (AUTO) 69.5 % (40.0-77.0); PLATELET COUNT (AUTO) 135 K/uL (130-400); RED BLOOD CELL COUNT(AUTO) 3.64 MIL/uL (4.00-5.50); RED CELL DISTRIBUTION WIDTH 15.3 % (11.0-15.5); WHITE BLOOD COUNT (AUTO) 4.9 K/uL (4.8-10.8)
[2024-04-09 06:23] LABS: BILIRUBIN,TOTAL 0.7 mg/dL (0.2-1.0); CREATININE 1.6 mg/dL (0.5-1.0); MAGNESIUM 2.2 mg/dL (1.80-2.40)
[2024-04-09 06:29] LABS: B-TYPE NATRIURETIC PEPTIDE 4100 pg/mL (0-100)
[2024-04-09 06:39] LABS: HEMOGLOBIN A1C 8.9 % (4.0-6.0)
[2024-04-09 08:00] VITALS: BP 161/85; PULSE 65; RESP 18; TEMP 97.4
[2024-04-09 08:20] VITALS: O2SAT 100
[2024-04-09] MEDS: SPIRONOLACTONE 25 MG TAB PO SCH (08:37)
[2024-04-09] MEDS: SACUBITRIL/VALSARTAN 1 EACH TABLET PO SCH (08:37)
[2024-04-09] MEDS: carVEDIlol 6.25 MG TABLET PO SCH (08:37)
[2024-04-09] MEDS: furoSEMIDE 20MG VIAL IV SCH (08:40)
[2024-04-09 12:00] VITALS: BP 153/86; PULSE 62; RESP 18; TEMP 98.2
[2024-04-09 16:00] VITALS: BP 153/79; PULSE 64; RESP 18; TEMP 97.6
[2024-04-09 20:00] VITALS: BP 158/78; PULSE 64; RESP 19; TEMP 98.2; O2SAT 99
[2024-04-10] VITALS: BP 147/76; PULSE 63; RESP 18; TEMP 97.8
[2024-04-10 04:00] VITALS: BP 156/78; PULSE 62; RESP 18; TEMP 98.1
[2024-04-10 05:13] LABS: BASOPHILS # (AUTO) 0.02 K/uL (0.00-0.20); BASOPHILS % (AUTO) 0.5 % (0.0-5.0); EOSINOPHILS # (AUTO) 0.05 K/uL (0.00-0.70); EOSINOPHILS % (AUTO) 1.1 % (0.0-8.0); HEMATOCRIT 30.8 % (36-48); IMMATURE GRANULOCYTE ABSOLUTE 0.02 K/uL (0-1); LYMPHOCYTES # (AUTO) 1.2 K/uL (1.0-4.8); LYMPHOCYTES % (AUTO) 26.8 % (21.0-51.0); MEAN CORPUSCULAR HEMOGLOBIN 28.7 pg (27.0-33.0); MEAN CORPUSCULAR HGB CONC 33.1 g/dL (32.0-36.0); MEAN CORPUSCULAR VOLUME 86.5 fL (79-99); MONOCYTES # (AUTO) 0.5 K/uL (0.1-1.0); MONOCYTES % (AUTO) 12.4 % (3.0-13.0); NEUTROPHILS # (AUTO) 2.6 K/uL (1.8-7.7); NEUTROPHILS % (AUTO) 58.7 % (40.0-77.0); PLATELET COUNT (AUTO) 117 K/uL (130-400); RED BLOOD CELL COUNT(AUTO) 3.56 MIL/uL (4.00-5.50); RED CELL DISTRIBUTION WIDTH 15.3 % (11.0-15.5); WHITE BLOOD COUNT (AUTO) 4.4 K/uL (4.8-10.8)
[2024-04-10 05:26] LABS: CREATININE 1.6 mg/dL (0.5-1.0); POTASSIUM 3.7 mmol/L (3.5-5.1)
[2024-04-10 05:30] LABS: % IRON SATURATION 11.2 % (22-44)
[2024-04-10] MEDS: KCL 20 MEQ ERTAB PO PRN (05:52)
[2024-04-10 08:29] VITALS: BP 172/88; PULSE 63; RESP 19; TEMP 98.8
[2024-04-10 09:00] VITALS: O2SAT 96
[2024-04-10] MEDS ORDERED: FURO20TA6 PO (10:19)
[2024-04-10 11:17] VITALS: BP 156/75; PULSE 63; RESP 19; TEMP 98.6
[2024-04-10] MEDS ORDERED: furoSEMIDE 20 MG TABLET PO SCH (17:00)
[2024-04-10] MEDS ORDERED: IRON sUCROse COMPLEX 300 MG in 0.9% NACL 250ML 250 ML IV ONE (21:00)
== END 2024-04-10 11:45 | disposition home or self-care (01) ==
LOC: EDH 16:11 → EDHIP 19:43 → 3BH 22:10
PROVIDERS: ADMIT Hospitalist; ATTEND Hospitalist
DX: I13.0 Hypertensive heart and chronic kidney disease with heart failure and stage 1 through stage 4 chronic kidney disease, or unspecified chronic kidney disease (principal); E11.22 Type 2 diabetes mellitus with diabetic chronic kidney disease; N18.9 Chronic kidney disease, unspecified; I50.31 Acute diastolic (congestive) heart failure; E11.65 Type 2 diabetes mellitus with hyperglycemia; N17.9 Acute kidney failure, unspecified; E87.8 Other disorders of electrolyte and fluid balance, not elsewhere classified; E87.70 Fluid overload, unspecified; D63.1 Anemia in chronic kidney disease; E87.1 Hypo-osmolality and hyponatremia; R60.0 Localized edema; E61.1 Iron deficiency; I25.10 Atherosclerotic heart disease of native coronary artery without angina pectoris; T50.2X5A Adverse effect of carbonic-anhydrase inhibitors, benzothiadiazides and other diuretics, initial encounter; E78.5 Hyperlipidemia, unspecified; I08.3 Combined rheumatic disorders of mitral, aortic and tricuspid valves; Z90.49 Acquired absence of other specified parts of digestive tract; Z90.710 Acquired absence of both cervix and uterus; Z95.1 Presence of aortocoronary bypass graft; Z79.899 Other long term (current) drug therapy; Y92.89 Other specified places as the place of occurrence of the external cause
CPT/HCPCS: 96374; 96375; 99285; 83735 ×2; 84484 ×2; 80048 ×2; 83880 ×2; 85025 ×3; 82948 ×4; 81001; 36415 ×3; 71045; 93005; 96376 ×2; 83036; 80061; 80053; 76700; 93306; 93356; 83540; 83550; G0378 ×39; J3490 ×3; J1940 ×3; J1815; J3480

== ENCOUNTER 2024-08-04 14:36 | Emergency (ER) | payer MEDICARE ==
[~2024-08-04] VITALS: Ht 160 cm; Wt 54.9 kg
[~2024-08-04 14:36] MED LIST changes: +DAPA5TAB PO; +FURO20TA4 PO; +METF-444 PO; -SACU1TAB PO; +SACU1TAB7 PO
--- NOTE | 2024-08-04 14:44 | ERN ---
ED Note History of Present Illness Stated Complaint: DIARRHEA Chief Complaint: Diarrhea Time Seen by MD: 14:38 Dictation: PATIENT IS A 69-YEAR-OLD FEMALE COMING IN TODAY WITH COMPLAINTS OF HAVING LIQUID STOOLS DIARRHEA FOR TWO WEEKS AND FEELING WEAK. SHE SAID SHE HAS NO FEVER NO CHILLS NO NAUSEA VOMITING NO ABDOMINAL PAIN. HAS NOT BEEN TO SEE YOUR PRIMARY CARE DOCTOR BECAUSE IT DID NOT GET BAD UNTIL TODAY. Allergies: Coded Allergies: No Known Allergies (Verified Allergy, Unknown, 01/18/24) Home Meds Active Scripts Diphenoxylate HCl/Atropine (Lomotil Tablet) 2.5 Mg-0.025 Mg Tablet, 1 EACH PO AD for Diarrhea stool, #7 TAB 0 Refills One tablet by mouth every 6 hours as needed for loose stools maximum four tablets in 24 hours Prov:GLENN FIGUEREDO [employer] 08/04/24 Reported Medications Furosemide (Furosemide) 20 Mg Tablet, 20 MG PO QODAY, TAB 07/07/24 Metformin HCl (Metformin HCl) 500 Mg Tablet, 1 TAB PO BID for 30 Days, #60 TAB 0 Refills 07/07/24 Dapagliflozin Propanediol (Farxiga) 5 Mg Tablet, 1 TAB PO DAILY for 30 Days, #30 TAB 0 Refills 07/07/24 Sacubitril/Valsartan (Entresto 49 mg-51 mg Tablet) 49 Mg-51 Mg Tablet, 1 TAB PO BID for 30 Days, #60 TAB 0 Refills 07/07/24 Spironolactone (Spironolactone) 25 Mg Tablet, 12.5 MG PO DAILY, TAB 03/08/24 Carvedilol (Carvedilol) 6.25 Mg Tablet, 6.25 MG PO BID, TAB 03/08/24 Past Medical History Past Medical History: CAD, CHF, Diabetes-Type II, Heart Disease, Hypertension Surgical History: Appendectomy, Hysterectomy, Cholecystectomy, CABG Family History: CAD, DM, HTN Social History: Negative, Lives with family History: Not Applicable RN Note Reviewed/Agreed w/PFSH: Yes Review of System Dictation CONSTITUTIONAL: NEGATIVE EXCEPT FOR HPI GENERALIZED WEAKNESS HEAD/FACE: NEGATIVE EXCEPT FOR HPI EENT: NEGATIVE EXCEPT FOR HPI RESPIRATORY: NEGATIVE EXCEPT FOR HPI GASTROINTESTINAL/ABDOMINAL: NEGATIVE EXCEPT FOR HPI DIARRHEA GENITOURINARY: NEGATIVE EXCEPT FOR HPI MUSCULOSKELETAL: NEGATIVE EXCEPT FOR HPI INTEGUMENTARY: NEGATIVE EXCEPT FOR HPI NEUROLOGICAL/PSYCH: NEGATIVE EXCEPT FOR HPI HEMATOLOGIC/LYMPHATIC: NEGATIVE EXCEPT FOR HPI ALL SYSTEMS NEGATIVE, EXCEPT NOTED ABOVE. 13 POINT REVIEW OF SYSTEMS ASSESSED AND ALL NEGATIVE EXCEPT FOR ABOVE. Initial Vital Sign VS Vital Signs Date Time Temp Pulse Resp B/P (MAP) Pulse Ox O2 Delivery O2 Flow Rate FiO2 08/04/24 14:39 99.1 77 16 145/69 99 Room Air 0 08/04/24 16:52 21 Physical Exam Dictation VITAL SIGNS REVIEWED GENERAL APPEARANCE: ALERT, ORIENTED X 3, NO ACUTE DISTRESS, WELL DEVELOPED, NOURISHED. HEAD AND FACE: NON-TRAUMATIC. EYES: PERRL, PINK CONJUNCTIVAS, EYELID NO TRAUMA, ANTERIOR CHAMBER WITH ARCUS SENILIS. EARS: PINNAS INTACT AND NO SIGNS OF TRAUMA OR ERYTHEMA EAR CANALS CLEAR AND NO DISCHARGE TM NO ERYTHEMA NOSE: NO DISCHARGE, NO BLEEDING. OROPHARYNX: MOUTH NORMAL, TONGUE PINK, PHARYNX CLEAR,NO ERYTHEMA, TONSILS NO EXUDATES, NO ABSCESSES NOTED, MUCOUS MEMBRANE MOIST NECK: SUPPLE, NON-TENDER, NO THYROMEGALY, NO MASSES, NO JVD, NO BRUITS BREAST:DEFERRED CHEST:NO TENDERNESS, NO CREPITUS, NO PARADOXICAL MOVEMENT, NO RETRACTIONS LUNGS:CLEAR, WELL-VENTILATED, SYMMETRIC, NO RALES, NO WHEEZING, NO RHONCHI, NO STRIDOR, GOOD BREATH SOUNDS BILATERALLY HEART: REGULAR RATE, REGULAR RHYTHM, NO MURMUR, NO GALLOPS VASCULAR: NO PERIPHERAL EDEMA, ABDOMEN: SOFT, HYPERACTIVE BOWEL SOUNDS, NONDISTENDED, NO GUARDING, NONTENDER, NO REBOUND, NO MASSES NO HEPATOMEGALY, NO SPLENOMEGALY, NO YU'S SIGN, NO HERNIAS. NO FOCAL TENDERNESS RECTAL: DEFERRED GENITAL: DEFERRED NEUROLOGICAL: NORMAL SPEECH, MOTOR FUNCTION INTACT, SENSORY FUNCTION INTACT MUSCULOSKELETAL: NECK NONTENDER, FULL RANGE OF MOTION, BACK NONTENDER, FULL RANGE OF MOTION, EXTREMITIES: NONTENDER, FULL RANGE OF MOTION SKIN: COLOR PINK, DRY, NO TURGOR, NO RASH, NO LACERATIONS, NO ABRASIONS, NO CONTUSIONS. LYMPHATIC: DEFERRED Results (Laboratory/Radiology) Laboratory/Radiology Laboratory Tests Test 08/04/24 14:50 08/04/24 17:00 White Blood Count 8.2 K/uL (4.8-10.8) Red Blood Count 3.10 MIL/uL (4.00-5.50) L Hemoglobin 10.1 g/dL (12.0-16.0) L Hematocrit 30.1 % (36-48) L Mean Corpuscular Volume 97.1 fL (79-99) Mean Corpuscular Hemoglobin 32.6 pg (27.0-33.0) Mean Corpuscular Hemoglobin Concent 33.6 g/dL (32.0-36.0) Red Cell Distribution Width 15.9 % (11.0-15.5) H Platelet Count 124 K/uL (130-400) L Mean Platelet Volume 10.0 fL (7.5-10.5) Immature Granulocyte % (Auto) 0.4 % (0-1) Neutrophils (%) (Auto) 83.1 % (40.0-77.0) H Lymphocytes (%) (Auto) 9.5 % (21.0-51.0) L Monocytes (%) (Auto) 6.5 % (3.0-13.0) Eosinophils (%) (Auto) 0.4 % (0.0-8.0) Basophils (%) (Auto) 0.1 % (0.0-5.0) Neutrophils # (Auto) 6.8 K/uL (1.8-7.7) Lymphocytes # (Auto) 0.8 K/uL (1.0-4.8) L Monocytes # (Auto) 0.5 K/uL (0.1-1.0) Eosinophils # (Auto) 0.03 K/uL (0.00-0.70) Basophils # (Auto) 0.01 K/uL (0.00-0.20) Absolute Immature Granulocyte (auto 0.03 K/uL (0-1) Nucleated Red Blood Cells 0.0 % (0.0-0.19) White Cell Morphology Comment See comments Sodium Level 133 mmol/L (136-145) L Potassium Level 4.2 mmol/L (3.5-5.1) Chloride Level 98 mmol/L (101-111) L Carbon Dioxide Level 27 mmol/L (21-32) Blood Urea Nitrogen 21 mg/dL (7-18) H Creatinine 1.2 mg/dL (0.5-1.0) H Glomerular Filtration Rate Calc 49 mL/min (>90) Random Glucose 201 mg/dL (70-105) H Total Calcium 8.5 mg/dL (8.5-10.1) Lipase 19 U/L (16-77) Urine Color YELLOW (YELLOW) Urine Appearance CLEAR (CLEAR) Urine pH 6.0 (5.0-8.0) Urine Specific [place] 1.014 (1.001-1.031) Urine Protein 600 mg/dL (NEGATIVE) H Urine Glucose (UA) 150 mg/dL (NEGATIVE) H Urine Ketones NEGATIVE mg/dL (NEGATIVE) Urine Occult Blood SMALL (NEGATIVE) H Urine Nitrate NEGATIVE (NEGATIVE) Urine Bilirubin NEGATIVE mg/dL (NEGATIVE) Urine Urobilinogen 2.0 mg/dL (0.2-1.0) H Urine Leukocyte Esterase NEGATIVE Baljit/uL Urine RBC 6-10 /HPF (0-1) H Urine WBC 2-5 /HPF (0-1) H Urine Squamous Epithelial Cells RARE /HPF (0-2) Urine Transitional Epithelial Cells RARE /HPF (None Seen) Urine Bacteria None /HPF (None Seen) Labs Reviewed?: Yes ED Course ED Course Orders Procedure Category Date Status Time Cbc With Differential LAB 08/04/24 Complete 14:41 Urinalysis Profile LAB 08/04/24 Complete 14:41 0.9%Nacl 1000ml (Ns PHA 08/04/24 Complete 1000ml) 15:00 Lipase LAB 08/04/24 Complete 14:41 Basic Metabolic Panel LAB 08/04/24 Complete 14:41 Current Medications Medications (Trade) Dose Ordered Sig/Maci Route PRN Reason Start Time Stop Time Status Last Admin Dose Admin Sodium Chloride 1,000 ml @ 0 mls/hr ONCE ONCE IV 08/04/24 15:00 08/04/24 15:01 DC 08/04/24 15:33 Vital Signs Date Time Temp Pulse Resp B/P (MAP) Pulse Ox O2 Delivery O2 Flow Rate FiO2 08/04/24 18:08 98.2 74 16 138/67 99 Room Air* 0 21 08/04/24 16:52 98.2 77 16 145/69 99 Room Air* 0 21 08/04/24 14:39 99.1 77 16 145/69 99 Room Air 0 Seventeen 40, patient is hemodynamically stable states she feels better after fluids. She is aware that she has had no diarrhea since she has been here and only mild electrolyte changes. We will be discharged home to follow up with her primary care doctor on Wednesday return to the emergency room if any changes. Medical Decision Making MDM MDM: Differential diagnosis: Viral gastroenteritis, bacterial gastroenteritis, UTI, electrolyte imbalance/dehydration Rationale: Tests considered and ordered secondary to shared decision making include: Labs patient unable to provide specimen of stool Previous outside records reviewed: Old ER visits. Reviewed Risk of complication and/or morbidity or mortality of patient management: None Medications-Per medication reconciliation Need for hospitalization: Patient does not meet criteria for hospitalization. No Need for emergency major/minor surgery: No There are no social concerns with this patient. Prescription drug management Lomotil Prescriptions will include symptomatic care Patient's prior external medical records from other ER visits were reviewed by me as indicated. Prior testing and results from previous visits were reviewed. Prior tests were taken into account with medical decision making and resource utilization, independent historian/historians were used to obtain complete medical history. I independently interpreted the test that were performed, results were reviewed by me and considered findings on radiology if ordered. Medical management and examination interpretation discussions were had by me with other qualified healthcare professionals as indicated for the patient's care. DX & DISP Disposition: Discharge Departure Impression: Primary Impression: Acute diarrhea Additional Impressions: Hyponatremia, Mild dehydration Condition: Stable Scripts Diphenoxylate HCl/Atropine (Lomotil Tablet) 2.5 Mg-0.025 Mg Tablet 1 EACH PO AD for Diarrhea stool, #7 TAB 0 Refills One tablet by mouth every 6 hours as needed for loose stools maximum four tablets in 24 hours Prov: GLENN FIGUEREDO [employer] 08/04/24 Additional Instructions: Follow-up with primary care provider in 1 to 2 days. Take medications as directed here in the emergency room. Okay to continue home medications unless otherwise discussed during your visit in the emergency room today. Return to your nearest emergency room if symptoms worsen or if there is no improvement. Call 911 if you need immediate assistance. Take Tylenol or Motrin [id number] as needed and if no contraindications are present. Increase oral hydration. A wound culture or urine culture was ordered here in the emergency room department please follow-up with primary care provider and advise them to get repeat ports from our facility. If you had any Trey wrap/splints that were applied here, please do not remove them until you see your primary care or specialty. Take Lomotil as directed for diarrhea. Follow up with your primary care doctor in 1-2 days. Referrals: SEVEN GARCIA MD (PCP) Time of Disposition: 17:44 I have reviewed the case, and I agree with, Diagnosis and Plan I performed a substantive portion of the visit. I have reviewed and personally made and approve the management plan that is documented in the notes by myself with TANISHA/resident. I acknowledged full responsibility for the patient's management plan. GLENN FIGUEREDO NP Aug 04, 2024 14:44 JOSÉ GUAMAN DO Aug 05, 2024 17:09
[2024-08-04 14:59] LABS: BASOPHILS # (AUTO) 0.01 K/uL (0.00-0.20); BASOPHILS % (AUTO) 0.1 % (0.0-5.0); EOSINOPHILS # (AUTO) 0.03 K/uL (0.00-0.70); EOSINOPHILS % (AUTO) 0.4 % (0.0-8.0); HEMATOCRIT 30.1 % (36-48); IMMATURE GRANULOCYTE ABSOLUTE 0.03 K/uL (0-1); LYMPHOCYTES # (AUTO) 0.8 K/uL (1.0-4.8); LYMPHOCYTES % (AUTO) 9.5 % (21.0-51.0); MEAN CORPUSCULAR HEMOGLOBIN 32.6 pg (27.0-33.0); MEAN CORPUSCULAR HGB CONC 33.6 g/dL (32.0-36.0); MEAN CORPUSCULAR VOLUME 97.1 fL (79-99); MONOCYTES # (AUTO) 0.5 K/uL (0.1-1.0); MONOCYTES % (AUTO) 6.5 % (3.0-13.0); NEUTROPHILS # (AUTO) 6.8 K/uL (1.8-7.7); NEUTROPHILS % (AUTO) 83.1 % (40.0-77.0); PLATELET COUNT (AUTO) 124 K/uL (130-400); RED CELL DISTRIBUTION WIDTH 15.9 % (11.0-15.5); WHITE BLOOD COUNT (AUTO) 8.2 K/uL (4.8-10.8)
[2024-08-04 15:07] LABS: CREATININE 1.2 mg/dL (0.5-1.0); POTASSIUM 4.2 mmol/L (3.5-5.1)
[2024-08-04] MEDS: 0.9%NACL 1000ML 1,000 ML IV ONE (15:33)
[2024-08-04 17:15] LABS: APPEARANCE,URINE CLEAR (CLEAR); BILIRUBIN,URINE NEGATIVE (NEGATIVE); COLOR,URINE YELLOW (YELLOW); GLUCOSE, URINE (UA) 150 mg/dL (NEGATIVE); KETONES,URINE NEGATIVE (NEGATIVE); LEUKOCYTE ESTERASE ,URINE NEGATIVE Leu/uL (NEGATIVE); NITRATE,URINE NEGATIVE (NEGATIVE); OCCULT BLOOD,URINE SMALL (NEGATIVE); PROTEIN,URINE 600 mg/dL (NEGATIVE)
[2024-08-04 17:19] LABS: ADD UA MICROSCOPIC YES
[2024-08-04 17:20] LABS: SQUAMOUS EPITHELIAL CELL,UR RARE /HPF (0-2); TRANSITIONAL EPI CELLS,URINE RARE /HPF (None Seen)
[2024-08-04] MEDS ORDERED: DIPH1TAB PO ×2 (17:44→17:47)
[2024-08-04 18:08] VITALS: BP 138/67; PULSE 74; RESP 16; TEMP 98.2; O2SAT 99
== END 2024-08-04 18:11 | disposition home or self-care (01) ==
LOC: EDH 14:36
DX: R19.7 Diarrhea, unspecified (principal); E86.0 Dehydration; E87.1 Hypo-osmolality and hyponatremia; I11.0 Hypertensive heart disease with heart failure; I50.9 Heart failure, unspecified; I25.10 Atherosclerotic heart disease of native coronary artery without angina pectoris; E11.9 Type 2 diabetes mellitus without complications; Z79.84 Long term (current) use of oral hypoglycemic drugs; Z79.899 Other long term (current) drug therapy; Z90.49 Acquired absence of other specified parts of digestive tract; Z90.710 Acquired absence of both cervix and uterus; Z95.1 Presence of aortocoronary bypass graft
CPT/HCPCS: 99283; 80048; 83690; 85025; 81001; 36415; J7030

== ENCOUNTER → 2024-11-09 | Outpatient (CLI) | payer MEDICARE ==
[~2024-11-09] MED LIST changes: +CARV25TA PO; -CARV6.25 PO; +DIPH1TAB PO; +SACU1TAB PO; -SACU1TAB7 PO
== END | disposition home or self-care (01) ==
LOC: WHH 08:39
PROVIDERS: ATTEND Family Medicine
DX: L02.415 Cutaneous abscess of right lower limb (principal); E11.622 Type 2 diabetes mellitus with other skin ulcer; L97.812 Non-pressure chronic ulcer of other part of right lower leg with fat layer exposed; E11.621 Type 2 diabetes mellitus with foot ulcer; L97.512 Non-pressure chronic ulcer of other part of right foot with fat layer exposed; E11.42 Type 2 diabetes mellitus with diabetic polyneuropathy; I10 Essential (primary) hypertension; I25.10 Atherosclerotic heart disease of native coronary artery without angina pectoris; Z79.899 Other long term (current) drug therapy; Z90.49 Acquired absence of other specified parts of digestive tract; Z95.5 Presence of coronary angioplasty implant and graft
CPT/HCPCS: 10061; 87086 ×2; 87186 ×2; 87070 ×2; A6196; A6197; A4450; A6260

== ENCOUNTER → 2024-11-16 | Outpatient (CLI) | payer MEDICARE ==
[~2024-11-16] MED LIST changes: +LIDOCAINE HCL 4% LTA SOL 4 ML VIAL TP ONE
== END | disposition home or self-care (01) ==
LOC: WHH 09:50
PROVIDERS: ATTEND Family Medicine
DX: L02.415 Cutaneous abscess of right lower limb (principal); E11.622 Type 2 diabetes mellitus with other skin ulcer; L97.812 Non-pressure chronic ulcer of other part of right lower leg with fat layer exposed; E11.621 Type 2 diabetes mellitus with foot ulcer; L97.512 Non-pressure chronic ulcer of other part of right foot with fat layer exposed; E11.42 Type 2 diabetes mellitus with diabetic polyneuropathy; I10 Essential (primary) hypertension; I25.10 Atherosclerotic heart disease of native coronary artery without angina pectoris; Z79.899 Other long term (current) drug therapy; Z90.49 Acquired absence of other specified parts of digestive tract; Z95.5 Presence of coronary angioplasty implant and graft
CPT/HCPCS: 11042; A6197

== ENCOUNTER → 2024-11-23 | Outpatient (CLI) | payer MEDICARE ==
[~2024-11-23] MED LIST changes: +DOXY100C5 PO
== END | disposition home or self-care (01) ==
LOC: WHH 09:53
PROVIDERS: ATTEND Family Medicine
DX: I87.311 Chronic venous hypertension (idiopathic) with ulcer of right lower extremity (principal); E11.622 Type 2 diabetes mellitus with other skin ulcer; L97.812 Non-pressure chronic ulcer of other part of right lower leg with fat layer exposed; E11.621 Type 2 diabetes mellitus with foot ulcer; L97.512 Non-pressure chronic ulcer of other part of right foot with fat layer exposed; L02.415 Cutaneous abscess of right lower limb; E11.51 Type 2 diabetes mellitus with diabetic peripheral angiopathy without gangrene; E11.42 Type 2 diabetes mellitus with diabetic polyneuropathy; E11.22 Type 2 diabetes mellitus with diabetic chronic kidney disease; I13.0 Hypertensive heart and chronic kidney disease with heart failure and stage 1 through stage 4 chronic kidney disease, or unspecified chronic kidney disease; N18.30 Chronic kidney disease, stage 3 unspecified; I50.43 Acute on chronic combined systolic (congestive) and diastolic (congestive) heart failure; E78.5 Hyperlipidemia, unspecified; I25.10 Atherosclerotic heart disease of native coronary artery without angina pectoris; Z90.49 Acquired absence of other specified parts of digestive tract; Z95.5 Presence of coronary angioplasty implant and graft; Z79.899 Other long term (current) drug therapy
CPT/HCPCS: 11042; 87086; 87186; 11045; 87070; A6197

== ENCOUNTER 2025-01-16 07:03 | Inpatient (IN) | payer MEDICARE ==
[~2025-01-16] VITALS: Ht 160 cm; Wt 58.1 kg
[2025-01-16] VITALS (11 sets, daily range): BP systolic 134–163; BP diastolic 72–79; PULSE 76–87; RESP 18–20; TEMP 97.4–98.5; O2SAT 97–99
[~2025-01-16 07:03] MED LIST changes: -CARV25TA PO; -DIPH1TAB PO; -DOXY100C5 PO; -LIDOCAINE HCL 4% LTA SOL 4 ML VIAL TP ONE
--- NOTE | 2025-01-16 07:45 | NUR ---
Assumed patients care. Patient is alert, oriented in person, time, place and situation. Able to voice needs. No signs of respiratory distress noted. Has a below knee amputation on her right leg. Pitting edema to her left leg with bruissing of her left thigh and 4th and 5th toe from left leg. Patient is incontinent, uses a wheelchair, at bedside.
[2025-01-16] MEDS: BUMETANIDE 1MG/4ML VIAL IVP ONE (07:48)
--- NOTE | 2025-01-16 09:00 | NUR ---
Home medication reviewed, pending to be reconsiled.
[2025-01-16 09:07] LABS: BASOPHILS # (AUTO) 0.02 K/uL (0.00-0.20); BASOPHILS % (AUTO) 0.3 % (0.0-5.0); EOSINOPHILS # (AUTO) 0.02 K/uL (0.00-0.70); EOSINOPHILS % (AUTO) 0.3 % (0.0-8.0); HEMATOCRIT 30.8 % (36-48); IMMATURE GRANULOCYTE ABSOLUTE 0.02 K/uL (0-1); LYMPHOCYTES # (AUTO) 1.1 K/uL (1.0-4.8); LYMPHOCYTES % (AUTO) 15.7 % (21.0-51.0); MEAN CORPUSCULAR HEMOGLOBIN 29.7 pg (27.0-33.0); MEAN CORPUSCULAR HGB CONC 32.8 g/dL (32.0-36.0); MEAN CORPUSCULAR VOLUME 90.6 fL (79-99); MONOCYTES # (AUTO) 0.5 K/uL (0.1-1.0); NEUTROPHILS # (AUTO) 5.4 K/uL (1.8-7.7); NEUTROPHILS % (AUTO) 76.4 % (40.0-77.0); PLATELET COUNT (AUTO) 75 K/uL (130-400); RED CELL DISTRIBUTION WIDTH 15.2 % (11.0-15.5)
[2025-01-16 09:11] LABS: CREATININE 1.3 mg/dL (0.5-1.0); POTASSIUM 3.9 mmol/L (3.5-5.1)
[2025-01-16 09:13] LABS: INR 1.15 (0.85-1.15)
[2025-01-16 09:14] LABS: PARTIAL THROMBOPLASTIN TIME 29.3 SEC (26.3-35.5)
[2025-01-16 09:27] LABS: B-TYPE NATRIURETIC PEPTIDE 2400 pg/mL (0-100)
--- NOTE | 2025-01-16 09:39 | EKG ---
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 : 1955 Requested By: JOSÉ GUAMAN Order Number: [id number] Reading MD: Laura Stinson Measurements Intervals [place] Rate: 70 P: 69 [place]: 181 QRS: -31 QRSD: 108 T: 147 QT: 414 QTc: 447 Interpretive Statements Sinus rhythm Incomplete left bundle branch block LVH with secondary repolarization abnormality Compared to ECG 12/05/2024 05:18:09 Left bundle-branch block now present Left ventricular hypertrophy now present Early repolarization now present Left-axis deviation no longer present ST (T wave) deviation no longer present Possible ischemia no longer present Electronically Signed On 01-18-2025 15:05:19 CDT by Laura Stinson Please click the below link to view image of tracing.
--- NOTE | 2025-01-16 09:45 | NUR ---
Home medications reviewed, pending to be reconsiled by physician.
--- NOTE | 2025-01-16 09:47 | ERN ---
General Chief Complaint: Multiple Complaints Stated Complaint: CHEST PHLEM/WATER RETENTION/ TOE PAIN Time Seen by MD: 07:28 History of Present Illness Initial Comments 69-year-old female who presents for dyspnea, cough, and concern for bruising on her leg. Patient had a recent right BKA by Dr. Guido here. She was [place] [facility]. She reports that over the last few days she has had increased cough and mild dyspnea. She also developed some bruising over the left groin area. No fevers. She does have swelling to her left leg. Allergies: Coded Allergies: No Known Allergies (Verified Allergy, Unknown, 01/18/24) Home Meds Reported Medications Furosemide (Furosemide) 20 Mg Tablet, 20 MG PO DAILY, TAB 11/26/24 Spironolactone (Spironolactone) 25 Mg Tablet, 12.5 MG PO BID, TAB 11/26/24 Sacubitril/Valsartan (Entresto 24 mg-26 mg Tablet) 24 Mg-26 Mg Tablet, 1 TAB PO BID 09/15/24 Metformin HCl (Metformin HCl) 500 Mg Tablet, 1 TAB PO BIDMEALS for 30 Days, #60 TAB 0 Refills 07/07/24 Dapagliflozin Propanediol (Farxiga) 5 Mg Tablet, 1 TAB PO DAILY for 30 Days, #30 TAB 0 Refills 07/07/24 Past Medical History Past Medical History: Anemia, CAD, CHF Past Surgical History: Appendectomy, Cholecystectomy, CABG Surgical History Other: DECEMBER 14, 2024 RLE AMPUTATION BKA Family History Family History: CAD, DM, HTN Social History Social History: Negative, Lives with family Female( History) History: Not Applicable ROS Dictation CONSTITUTIONAL: No chills, no fever, no weakness, no diaphoresis, no malaise. HEAD/FACE: No signs of trauma. EENT: No eye pain, no blurred vision, no tearing, no double vision, no ear pain, no ear discharge, no nose pain, no nasal congestion, no throat pain, no throat swelling, no mouth pain. RESPIRATORY: Cough CARDIOVASCULAR: No chest pain, no edema, no palpitations, no syncope. GASTROINTESTINAL/ABDOMINAL: No abdominal pain, no constipation, no diarrhea, no nausea, no vomiting. GENITOURINARY: No abnormal discharge, no dysuria, no frequent urination, no hematuria. No complaints of pain in the genitals. MUSCULOSKELETAL: No back pain, no gout, no joint pain, no joint swelling, no muscle pain, no muscle stiffness, no neck pain. INTEGUMENTARY: No change in color, no change in hair/nails, no dryness, no lesion, no lumps, no rash. NEUROLOGICAL/PSYCH: No anxiety, not depressed, no emotional problem, no head ache, no numbness, no pre-existing deficit, no history of seizures, no tremors, no weakness. HEMATOLOGIC/LYMPHATIC: Not anemic, no history of blood clots, no apparent bleeding, no bruising, glands not swollen. All Systems Negative, Except as Noted. Physical Exam Physical Exam Dictation VITAL SIGNS: Reviewed. GENERAL APPEARANCE: Alert, oriented x3, sitting up due to dyspnea HEAD AND FACE: Non-traumatic. EYES: PERRL, pink conjunctivas, eyelid no trauma, anterior chamber clear. EARS: Pinnas intact and no signs of trauma or erythema. Ear canals clear and no discharge. TMs no erythema. NOSE: No discharge, no bleeding. OROPHARYNX: Mouth normal, teeth no caries, tongue pink. Pharynx clear, no erythema. Tonsils no exudates, no abscesses noted. Mucous membrane moist. NECK: Supple, non-tender, no thyromegaly, no masses, no JVD, no bruits. BREAST: Deferred. CHEST: No tenderness, no crepitus, no paradoxical movement, no retractions. LUNGS: Congestion at the bases I have evaluated, HEART: Regular rate, regular rhythm, no murmur, no gallops. VASCULAR: No peripheral edema. ABDOMEN: Soft, positive bowel sounds, nondistended, no guarding, nontender, no rebound, no masses no hepatomegaly, no splenomegaly, no Zarate's sign, no hernias. RECTAL: Deferred. GENITAL: Deferred. NEUROLOGICAL: Normal speech, gross motor function intact, gross sensory function intact. MUSCULOSKELETAL: Neck nontender, full range of motion, back nontender, full range of motion. Right BKA, wound bandage, no obvious dehiscence left leg swelling 1+ pitting edema EXTREMITIES: Nontender, full range of motion. SKIN: Color pink, dry, no turgor, no rash, no lacerations, no abrasions, no contusions. LYMPHATICS: Deferred. Results Laboratory and Microbiology Lab and Micro Result Laboratory Tests Test 01/16/25 08:58 01/16/25 09:27 White Blood Count 7.0 K/uL (4.8-10.8) Red Blood Count 3.40 MIL/uL (4.00-5.50) L Hemoglobin 10.1 g/dL (12.0-16.0) L Hematocrit 30.8 % (36-48) L Mean Corpuscular Volume 90.6 fL (79-99) Mean Corpuscular Hemoglobin 29.7 pg (27.0-33.0) Mean Corpuscular Hemoglobin Concent 32.8 g/dL (32.0-36.0) Red Cell Distribution Width 15.2 % (11.0-15.5) Platelet Count 75 K/uL (130-400) L Mean Platelet Volume 11.7 fL (7.5-10.5) H Immature Granulocyte % (Auto) 0.3 % (0-1) Neutrophils (%) (Auto) 76.4 % (40.0-77.0) Lymphocytes (%) (Auto) 15.7 % (21.0-51.0) L Monocytes (%) (Auto) 7.0 % (3.0-13.0) Eosinophils (%) (Auto) 0.3 % (0.0-8.0) Basophils (%) (Auto) 0.3 % (0.0-5.0) Neutrophils # (Auto) 5.4 K/uL (1.8-7.7) Lymphocytes # (Auto) 1.1 K/uL (1.0-4.8) Monocytes # (Auto) 0.5 K/uL (0.1-1.0) Eosinophils # (Auto) 0.02 K/uL (0.00-0.70) Basophils # (Auto) 0.02 K/uL (0.00-0.20) Absolute Immature Granulocyte (auto 0.02 K/uL (0-1) Nucleated Red Blood Cells 0.0 % (0.0-0.19) Prothrombin Time 12.0 SEC (9.6-11.6) H Prothromb Time International Ratio 1.15 (0.85-1.15) Activated Partial Thromboplast Time 29.3 SEC (26.3-35.5) Sodium Level 119 mmol/L (136-145) L Potassium Level 3.9 mmol/L (3.5-5.1) Chloride Level 84 mmol/L (101-111) *L Carbon Dioxide Level 25 mmol/L (21-32) Blood Urea Nitrogen 38 mg/dL (7-18) H Creatinine 1.3 mg/dL (0.5-1.0) H Glomerular Filtration Rate Calc 44 mL/min (>90) Random Glucose 128 mg/dL (70-105) H Total Calcium 8.6 mg/dL (8.5-10.1) Troponin I High Sensitivity 17 ng/L (4-50) B-Type Natriuretic Peptide 2400 pg/mL (0-100) H SARS-CoV-2 Antigen (Rapid) PRESUMPTIVE NEGATIVE MDM CC: cough, edema, bruising to leg Historian: patient Comorbidities: Anemia, CHF (EF 30-35% , CAD, CABG, right lower extremity BKA December 14, 2024 Limitations by social determinants: None Differential diagnosis: CHF, DVT, coagulopathy, viral URI, other. Vital signs: Mild hypertension 149/76, vital signs otherwise stable and remained stable here in the ER. Labs (independently ordered and interpreted by me): show no leukocytosis, hemoglobin 10.1 normocytic. On external chart review patient had much lower hemoglobin in the past. Platelets 75, on chart review 12/21/2024 platelets were 285 but she has had low platelets before in the past as well. Coags unremarkable. Chemistry shows a sodium of 119, chloride of 84. She is volume overloaded. Creatinine 1.3 baseline for patient. Troponin is one normal limits. BNP elevated at 2400 consistent with fluid overload. EKG (independently interpreted by me): Sinus rhythm, rate 70, left axis deviation, good R-wave progression. LVH. No STEMI. Left-sided DVT study (independently interpreted by me): No obvious occlusion. Left toe x-ray (independently interpreted by me): Arthritis, no acute fractures noted Chest x-ray (independently interpreted by me): No cardiomegaly, sternotomy wires present, mild vascular congestion, no pleural effusion Treatment in ED: DuoNeb Bumex Plan: We will admit for diuresis. Consultation: Hospitalist for admission. ED Course Orders Procedure Category Date Status Time Cbc With Differential LAB 01/16/25 Complete 07:26 B-Type Natriuretic LAB 01/16/25 Complete Peptide 07:26 Chest 1vw RAD 01/16/25 Taken 07:26 Basic Metabolic Panel LAB 01/16/25 Complete 07:26 Troponin I High LAB 01/16/25 Complete Sensitivity 07:28 Covid19 (Sars Antigen LAB 01/16/25 Complete Rapid) 07:28 Prothrombin Time With LAB 01/16/25 Complete INR 07:39 Partial LAB 01/16/25 Complete Thromboplastin Time 07:39 Bumetanide 1mg/4ml PHA 01/16/25 Complete Vial (Bumex 1mg Vial) 08:00 Toe(S) 2+Vws Lt RAD 01/16/25 Taken 07:28 Us Venous Doppler US 01/16/25 Taken Unilateral 08:15 Albuterol 0.083% PHA 01/16/25 Complete 2.5mg/3ml (Proventil 09:30 12 Lead Ekg Tracing- EKG 01/16/25 Complete Technical 09:23 Current Medications Medications (Trade) Dose Ordered Sig/Maci Route PRN Reason Start Time Stop Time Status Last Admin Dose Admin Albuterol Sulfate (Proventil 0.083% 2.5mg/3ml) 2.5MG ONCE ONCE IH 01/16/25 09:30 01/16/25 09:31 DC Bumetanide (Bumex 1mg Vial) 1 mg ONCE ONCE IVP 01/16/25 08:00 01/16/25 08:01 DC 01/16/25 07:48 Vital Signs Date Time Temp Pulse Resp B/P (MAP) Pulse Ox O2 Delivery O2 Flow Rate FiO2 01/16/25 07:56 98.1 73 20 149/71 97 Room Air* 0 21 01/16/25 07:07 96.6 72 14 149/76 Room Air DX & DISP Disposition: Inpatient Departure Impression: Primary Impression: Acute exacerbation of CHF (congestive heart failure) Additional Impressions: Hyponatremia, Fluid overload, CKD (chronic kidney disease), Normocytic anemia, Thrombocytopenia Condition: Stable Referrals: SEVEN GARCIA MD (PCP) JOSÉ GUAMAN DO Jan 16, 2025 09:46
--- NOTE | 2025-01-16 09:50 | NUR ---
Educated patient on fall risk and medication. Patient verbalized understanding. Patient needs re-education about fall risk and prevention.
[2025-01-16] MEDS: ALBUTEROL 0.083% 2.5 MG/3 ML INH IH ONE (10:03)
[2025-01-16] MEDS ORDERED: guaiFENesin-DM 200/20MG 10ML PO PRN (10:30)
--- NOTE | 2025-01-16 11:08 | NUR ---
called DR. Ugalde for new consult. Pulmonology aware. Dr. Ingram aware of new consult.
[2025-01-16 11:11] LABS: HEMOGLOBIN A1C 6.6 % (4.0-6.0)
[2025-01-16 11:15] LABS: CREATININE 1.2 mg/dL (0.5-1.0)
--- NOTE | 2025-01-16 11:15 | NUR ---
Patient refused CT, stated : "I dont want anything done and I dont need this study done". Patient brought back to ed 20.
[2025-01-16 11:20] LABS: THYROID STIMULATING HORMONE 5.95 uIU/mL (0.36-3.74)
--- NOTE | 2025-01-16 11:20 | NUR ---
PT WAS TRANSPORTED TO CT ROOM. PT WAS PLACED ON CT TABLE AND DEMANDED TO BE TAKEN BACK TO ER. SHE IS REFUSING ANY CT SCANS AT THIS TIME. ER THANH MARTINEZ AWARE.
--- NOTE | 2025-01-16 11:25 | HP ---
[facility] HISTORY AND PHYSICAL Date of Service: Jan 16, 2025 Time of Service: 11:25 HISTORY OF PRESENT ILLNESS: 69-year-old female with a past medical history of heart failure with the EF of 30-35 %l moderate mitral regurgitation, severe tricuspid regurgitation, pulmonary hypertension, CKD stage 3, diabetes mellitus type from the my hypertension going to history of recent right BKA who presented to the hospitalist secondary to shortness a breath and swelling in the left lower extremity. Patient was previously to [facility] secondary to infected diabetic foot ulcer. The she was evaluated by ID ,podiatry. Orthopedic surgery was consulted and vision underwent right BKA during hospitalization Patient underwent Patient states we will device one week she has been feeling short of breath and has a productive cough. Denied any fever, chills, chest pain abdominal pain, nausea, vomiting, denied any changes in urination. She takes Lasix at home. She states she has had previous history of hyponatremia secondary to Lasix. She sees outpatient. She had followed up with orthopedic surgery post discharge. She was recently discharged from rehab. She was going to follow up with wound care as outpatient. Labs in the ED were notable for white count of 7.0, hemoglobin was 10.1, platelet count was low at 75k, sodium was 119, potassium was 3.9, chloride was 84, creatinine was 1.3, BNP was elevated at 2400 Patient underwent a chest x-ray which was negative, venous Doppler was negative to all onto x-ray showed no evidence of dislocation REVIEW OF SYSTEMS CONSTITUTIONAL: Denies fevers, chills, or night sweats. No unintentional weight loss reported. NEUROLOGICAL: Denies headache, amaurosis fugax, motor weakness, sensory deficit, vertigo/spinning sensation, gait abnormalities, or tremors. ENT: No hearing loss, otalgia, otorrhea, rhinitis, rhinorrhea, hoarseness, or sore throat. CARDIOVASCULAR: Denies any exertional angina, dyspnea on exertion, orthopnea, paroxysmal nocturnal dyspnea, palpitations, life-threatening arrhythmias, claudication. PULMONARY: Positive for cough, sputum production, shortness a breath. Denied any hemoptysis GASTROINTESTINAL: Denies any type of dysphagia to either liquids or solids. Denies nausea, vomiting, pyrosis, early satiety, abdominal pain, diarrhea, constipation, or changes in stool consistency or caliber. Denies coffee-ground emesis, hematemesis, hematochezia, or melanotic stools. GENITOURINARY: Denies frequency, urgency, nocturia, hematuria or incontinence (Storage/Irritative symptoms.) Low urinary stream, straining to void, urinary intermittency or hesitancy, splitting of the voiding stream, terminal dribbling. ENDOCRINOLOGIC: Denies polyuria, polydipsia, polyphagia or heat/cold intolerances. HEMATOLOGIC: Denies thrombophilia/previous clots, or coagulopathy/bleeding disorders. ONCOLOGIC: Denies personal history of malignancy. DERMATOLOGIC: Denies rashes or pruritus. PSYCHIATRIC: Denies any suicidal or homicidal ideation. Denies hallucinations. PAST MEDICAL HISTORY: CHF, EF of 30-35% going to history of moderate mitral regurgitation history of severe tricuspid regurgitation for laundry for CKD stage 3, diabetes mellitus t ype 2 PAST SURGICAL HISTORY: History of right below-knee amputation in 2024 PAST SOCIAL HISTORY: Denied any smoking, alcohol, drug use FAMILY HISTORY: Denied any pertinent family history Coded Allergies: No Known Allergies (Verified Allergy, Unknown, 01/18/24) PHYSICAL EXAM GENERAL APPEARANCE: The patient is awake, alert, and oriented, in no acute cardiopulmonary distress. NEUROLOGICAL: Cranial nerves II-XII grossly intact. Motor is 5/5 in bilateral upper and lower extremities proximal to distal. No sensory deficits. HEENT: Face is symmetric. Pupils are equal and reactive. Extraocular movements are intact. NECK: Supple. No JVD. No thyromegaly. No submental, submandibular, pre- /postauricular, occipital or supraclavicular lymphadenopathy. CHEST: Normal chest expansion. No Telemetry. LUNGS: Absence of any rales, rhonchi or any wheezing. CARDIOVASCULAR: Regular. S1 and S2 normal. No appreciable rubs, murmurs or gallops. ABDOMEN: Soft, nontender, and nondistended. There is no rebound, voluntary guarding, or rigidity. : Deferred. No Patricia. EXTREMITIES: 3+ pitting edema in the left lower extremity. She has bruising noted in the 4th and 5th digit of the left foot. Right foot with BKA. She has some jimenez discoloration on the stump site. SKIN: Betty's bruising noted in the left thigh and left calf area. Vital Sign (Last 24 Hours) 01/16/25 01/16/25 07:56 10:19 Temp 98.1 Pulse 76 Resp 20 B/P (MAP) 149/71 Pulse Ox 97 O2 Delivery Room Air* O2 Flow Rate 0 FiO2 21 LABS: Laboratory: Test 01/16/25 10:57 01/16/25 09:27 01/16/25 08:58 Range/Units Sodium Level 119 L 136-145 mmol/L Potassium Level 4.0 3.5-5.1 mmol/L Chloride Level 84 *L 101-111 mmol/L Carbon Dioxide Level 26 21-32 mmol/L Blood Urea Nitrogen 35 H 7-18 mg/dL Creatinine 1.2 H 0.5-1.0 mg/dL Glomerular Filtration Rate Calc 49 >90 mL/min Random Glucose 126 H 70-105 mg/dL Total Calcium 8.5 8.5-10.1 mg/dL SARS-CoV-2 Antigen (Rapid) PRESUMPTIVE NEGATIVE NEGATIVE White Blood Count 7.0 4.8-10.8 K/uL Red Blood Count 3.40 L 4.00-5.50 MIL/uL Hemoglobin 10.1 L 12.0-16.0 g/dL Hematocrit 30.8 L 36-48 % Mean Corpuscular Volume 90.6 79-99 fL Mean Corpuscular Hemoglobin 29.7 27.0-33.0 pg Mean Corpuscular Hemoglobin Concent 32.8 32.0-36.0 g/dL Red Cell Distribution Width 15.2 11.0-15.5 % Platelet Count 75 L 130-400 K/uL Mean Platelet Volume 11.7 H 7.5-10.5 fL Immature Granulocyte % (Auto) 0.3 0-1 % Neutrophils (%) (Auto) 76.4 40.0-77.0 % Lymphocytes (%) (Auto) 15.7 L 21.0-51.0 % Monocytes (%) (Auto) 7.0 3.0-13.0 % Eosinophils (%) (Auto) 0.3 0.0-8.0 % Basophils (%) (Auto) 0.3 0.0-5.0 % Neutrophils # (Auto) 5.4 1.8-7.7 K/uL Lymphocytes # (Auto) 1.1 1.0-4.8 K/uL Monocytes # (Auto) 0.5 0.1-1.0 K/uL Eosinophils # (Auto) 0.02 0.00-0.70 K/uL Basophils # (Auto) 0.02 0.00-0.20 K/uL Absolute Immature Granulocyte (auto 0.02 0-1 K/uL Nucleated Red Blood Cells 0.0 0.0-0.19 % Prothrombin Time 12.0 H 9.6-11.6 SEC Prothromb Time International Ratio 1.15 0.85-1.15 Activated Partial Thromboplast Time 29.3 26.3-35.5 SEC Hemoglobin A1c 6.6 H 4.0-6.0 % Estimated Average Glucose (eAG) 143 H 70-126 mg/dL Troponin I High Sensitivity 17 4-50 ng/L B-Type Natriuretic Peptide 2400 H 0-100 pg/mL Procalcitonin 0.08 0.05-0.5 ng/mL Current Medications Medications (Trade) Dose Ordered Sig/Maci Route PRN Reason Start Time Stop Time Status Last Admin Dose Admin Albuterol Sulfate (Proventil 0.042% 1.25mg/ 3ml) 1.25 mg [id number] PRN IH sob/wheezing 01/16/25 10:30 02/15/25 10:29 Bumetanide (Bumex 1mg Vial) 1 mg Q12H IVP 01/16/25 17:00 02/15/25 16:59 Famotidine (Pepcid 20mg Vial) 20 mg QODAY IV 01/17/25 09:00 02/16/25 08:59 Guaifenesin/ Dextromethorphan (RobiTUSSin DM 200/20MG 10ML) 5 ml Q6H PRN PO COUGH 01/16/25 10:30 02/15/25 10:29 Sacubitril/ Valsartan (Entresto 24 Mg-26 Mg Tablet) 1 each BID PO 01/16/25 21:00 02/15/25 20:59 Spironolactone (Aldactone 25mg) 12.5 mg BID PO 01/16/25 21:00 02/15/25 20:59 DIAGNOSTICS / RADIOLOGY: [ ] ASSESSMENT: Acute on chronic CHF exacerbation with EF of 30-35% Left lower extremity edema Shortness of breaths likely in setting of CHF exacerbation Severe hyponatremia asymptomatic Right BKA History of PVD Hypertension Hyperlipidemia Scientologist Thrombocytopenia Diabetes mellitus type 2 CKD stage 3 PLAN: - patient to be admitted to PCCU -in reference to hyponatremia. Patient will continue on IV Bumex in setting of hypervolemia. Check BMP q.4 hours. We will request consultation with Nephrology. Check urine sodium, serum osmolarity. Check TSH. -reference to CHF exacerbation. We will continue on Bumex 1 mg q.12 hours. We will request consultation with Cardiology. -obtain wound care consultation for evaluation of right foot BKA site -obtain home medications which will be reconciled once available -in reference to thrombocytopenia. Obtain Hematology consultation -further orders per hospitalization course made Plan of care was discussed with patient at bedside. Advanced Care Planning Which of the following were discussed: Hospice care: Yes __ No _x_ Therapeutic options: Yes __ No __ Advance directives: Yes __ No __ Other discussions: Discussed with who?: patient (Patient, family or surrogates) Voluntary nature of this service was explained to the patient? Yes _x_ No __ Amount of time spent: 25 minutes GEREMIAS Ho MD, MD Jan 16, 2025 11:25
--- NOTE | 2025-01-16 11:53 | HMCIMG ---
US VENOUS DOPPLER UNILATERAL HISTORY: Edema COMPARISON: 11/26/2024 TECHNIQUE: Left lower extremity venous Doppler ultrasound study was performed. FINDINGS: The left common femoral, femoral, popliteal, and posterior tibial veins are visualized. Normal flow with augmentation and compressibilities are demonstrated. Left greater saphenous vein is patent. IMPRESSION: 1. No evidence of deep venous thrombosis is seen.
--- NOTE | 2025-01-16 11:56 | HMCIMG ---
TOE(S) 2+VWS LT HISTORY: Pain COMPARISON: None TECHNIQUE: 3 images of left fourth and fifth toes were obtained. FINDINGS: There is no acute displaced fracture or dislocation. Degenerative changes are seen. IMPRESSION: 1. Findings as described above.
--- NOTE | 2025-01-16 11:57 | HMCIMG ---
CHEST 1VW HISTORY: Cough COMPARISON: 11/26/2024 FINDINGS: A frontal projection of the chest was obtained. No acute pulmonary infiltrates is seen. Poststernotomy changes are seen. The heart is enlarged. Degenerative changes of the thoracolumbar spine are present. Degenerative changes are seen. Aortic calcifications are seen. IMPRESSION: 1. No acute pulmonary infiltrate is seen.
[2025-01-16] MEDS: LORazepam 0.5 MG TABLET PO ONE (11:58)
--- NOTE | 2025-01-16 12:18 | NUR ---
Patient refuses CT. Stated she does not need it.
--- NOTE | 2025-01-16 12:19 | NUR ---
[facility] Consult: Patient assessed by wound healing team. See wound assessment. Assessment and recommendations provided to primary nurse. Education provided. Addendum: 01/17/25 at 1546 by LYNN TIDWELL RN RN/ Amended: Links added.
--- NOTE | 2025-01-16 12:24 | NUR ---
wound care to her right BKA done by wound care team.
--- NOTE | 2025-01-16 12:50 | HP ---
ADMISSION CC: Thrombocytopenia HPI: Patient is a 69-year-old female with a past medical history of heart failure with the EF of 30-35 %l moderate mitral regurgitation, severe tricuspid regurgitation, pulmonary hypertension, CKD stage 3, diabetes mellitus type from the my hypertension going to history of recent right BKA who presented to the hospitalist secondary to shortness a breath and swelling in the left lower extremity. Patient was previously to [facility] secondary to infected diabetic foot ulcer. The she was evaluated by ID ,podiatry. Orthopedic surgery was consulted, and the patient underwent a right BKA during hospitalization. Patient reports taking Lasix at home, and per nurse patient reports taking extra doses of her Lasix due to her left lower leg edema. She states she has had previous history of hyponatremia secondary to Lasix. The patient follows with ticket attendant Dr. Gipson. Labs in the ED were notable for white count of 7.0, hemoglobin was 10.1, platelet count was low at 75k, sodium was 119, potassium was 3.9, chloride was 84, creatinine was 1.3, BNP was elevated at 2400. A chest x-ray done in the emergency department was negative, venous Doppler was negative, x-ray of the toe was negative. Patient reports easy bruising. Hematology was consulted due to thrombocytopenia. HISTORY PHM: CHF, EF of 30-35% going to history of moderate mitral regurgitation history of severe tricuspid regurgitation for laundry for CKD stage 3, diabetes mellitus type 2 PSH: History of right below-knee amputation in November 2024 SH: denied any smoking, alcohol, drug use FH: Noncontributory ALLERGIES: Coded Allergies: No Known Allergies (Verified Allergy, Unknown, 01/18/24) REVIEW OF SYSTEMS CONSTITUTIONAL: No FEVER, No SWEATS, No CHILLS, No WEIGHT LOSS HEENT: No JAUNDICE, No SORE THROAT, No SINUS PRESSURE, No VISION CHANGES RESPIRATORY: No COUGH, No CHEST PAIN, No SHORTNESS OF BREATH, No HEMOPTYSIS CARDIOVASCULAR: No PALPATIONS, No DYSPNEA ON EXERTION, No SYNCOPE GASTROINTESTINAL: No NAUSEA, No VOMITING, No DIARRHEA, No DYSPHAGIA, No CONSTIPATION, No ABDOMINAL PAIN, No HEMATEMESIS, No HEMATOCHEZIA, No MELENA GENITOURINARY: No DYSURIA, No HEMATURIA HEMATOLOGIC/LYMPHATIC: EASY BRUISING; No CERVICAL ADENOPATHY, No AXILLARY ADENOPATHY, No INGUINAL ADENOPATHY MUSCULOSKELETAL: No BONE PAIN, No MASS, No NORMAL RANGE OF MOTION SKIN/BREASTS: No BREAST MASS, No NIPPLE INVERSION, No RASH NEUROLOGICAL: No WEAKNESS-EXTREMETIES, No DIPLOPIA, No NUMBNESS, No TINGLING PSYCHOLOGICAL: No SUICIDAL IDEATION PHYSICAL EXAM VITALS: Vital Signs Date Time Temp Pulse Resp B/P (MAP) Pulse Ox O2 Delivery O2 Flow Rate FiO2 01/16/25 12:16 76 20 N/A Room Air 21 01/16/25 12:00 98.4 158/67 96 0 GENERAL: ALERT, ORIENTED, APPEARS-NO ACUTE DISTRESS EYES: SCLERAE ANICTERIC, PUPILS EQUAL/REACTIVE, EXTRAOCULAR MUSCLES INTCT ENT/NECK: ORAL MUCOSA W/O LESIONS, OROPHARYNX IS CLEAR, NECK SUPPLE W/O MASSES RESPIRATORY: LUNGS CLEAR-AUSC/PERCUS CARDIOVASCULAR: REGULAR RATE, REGULAR RHYTHM GASTROINTESTINAL: ABDOMEN IS SOFT; No TENDER, No DISTENDED, No HEPATOSPLENOMEGALY; BOWEL SOUNDS PRESENT; No PALPABLE MASSES HEMATOLOGY/LYMPHATIC: No CERVICAL ADENOPATHY, No SUPRACLAVICULR ADENOPATHY, No AXILLARY ADENOPATHY, No INGUINAL ADENOPATHY MUSCULOSKELETAL: EDEMA SKIN/BREASTS: No MASSES, No RASH, No HIVES NEUROLOGICAL: GROSSLY INTACT PSYCHOLOGICAL: MINI MENTAL ASSMT INTACT DIAGNOSTIC STUDIES [place] [id number] [address] IMAGING REPORT Signed PATIENT: MONE CARMEN MR#: [id number] : 1955 SEX: F AGE: 69 LOCATION: EDHIP ORDER 5 STATUS: ADM IN REPORT#: [id number] SERVICE 4 REASON: left leg ORDERING PHYSICIAN: JOSÉ GUAMAN DO PROCEDURE: VENOUS UNI - US VENOUS DOPPLER UNILATERAL US VENOUS DOPPLER UNILATERAL HISTORY: Edema COMPARISON: 11/26/2024 TECHNIQUE: Left lower extremity venous Doppler ultrasound study was performed. FINDINGS: The left common femoral, femoral, popliteal, and posterior tibial veins are visualized. Normal flow with augmentation and compressibilities are demonstrated. Left greater saphenous vein is patent. IMPRESSION: 1. No evidence of deep venous thrombosis is seen. DICTATED BY: NILSA MONTAÑO MD DATE: 01/16/25 114 ELECTRONICALLY SIGNED BY: NILSA MONTAÑO MD DATE: 01/16/25 115 [facility] [address] [place] [id number] IMAGING REPORT Signed PATIENT: MONE CARMEN MR#: [id number] : 1955 SEX: F AGE: 69 LOCATION: EDHIP ORDER 0729 STATUS: ADM IN REPORT#: [id number] SERVICE 7 REASON: pain injury ORDERING PHYSICIAN: JOSÉ GUAMAN DO PROCEDURE: TOES LT - TOE(S) 2+VWS LT TOE(S) 2+VWS LT HISTORY: Pain COMPARISON: None TECHNIQUE: 3 images of left fourth and fifth toes were obtained. FINDINGS: There is no acute displaced fracture or dislocation. Degenerative changes are seen. IMPRESSION: 1. Findings as described above. DICTATED BY: NILSA MONTAÑO MD DATE: 01/16/251152 ELECTRONICALLY SIGNED BY: NILSA MONTAÑO MD DATE: 01/16/25 115 [facility] [address] [place] [id number] IMAGING REPORT Signed PATIENT: MONE CARMEN MR#: [id number] : 1955 SEX: F AGE: 69 LOCATION: EDHIP ORDER STATUS: ADM IN REPORT#: [id number] SERVICE 5 REASON: PHLEM/ COUGH ORDERING PHYSICIAN: JOSÉ GUAMAN DO PROCEDURE: CXR1VW - CHEST 1VW CHEST 1VW HISTORY: Cough COMPARISON: 11/26/2024 FINDINGS: A frontal projection of the chest was obtained. No acute pulmonary infiltrates is seen. Poststernotomy changes are seen. The heart is enlarged. Degenerative changes of the thoracolumbar spine are present. Degenerative changes are seen. Aortic calcifications are seen. IMPRESSION: 1. No acute pulmonary infiltrate is seen. DICTATED BY: NILSA MONTAÑO MD DATE: 01/16/251153 ELECTRONICALLY SIGNED BY: NILSA MONTAÑO MD DATE: 01/16/25 1157 IMPRESSION Thrombocytopenia PLAN: Thrombocytopenia -Peripheral blood smear ordered and reviewed -Peripheral smear: manual platelet count >100,000. Large platelets, vacuolization, and pelger-Huet cells present, possibly due to active infection. Small and large hypochromic RBC seen. -Iron studies have been ordered -Consider stool hemoccult test -If iron studies abnormal, follow up with EGD and colonoscopy to investigate for possible sources of blood loss. If results are normal,the patient may benefit from Procrit therapy. Hyponatremia -Continue IV Bumex in setting of hypervolemia. Follow up on urine sodium and serum osmolarity. -Nephrology consulted, continue to follow their recommendations. DON ESCOBEDO MD Jan 16, 2025 12:50
[2025-01-16] MEDS: SODIUM CHLORIDE 3% FOR INHALATION 4 ML/AMP VIAL.NEB IH ONE ×4 (14:32→23:24)
[2025-01-16 14:43] LABS: CREATININE 1.1 mg/dL (0.5-1.0)
--- NOTE | 2025-01-16 14:44 | NUR ---
Called Mrs. Leal from 2nd floor to give report. Notify her about pending consults with Dr. Ugalde and Dr. Nunez. Mrs. Leal verbalized understanding. Vital signs before transer to room 203: pulse 82 p/min blood pressure 156/67 mmHg O2 saturation 100% at room respirations 13 p/min temperature 98.3 patient sent with SBAR paper.
--- NOTE | 2025-01-16 14:52 | NUR ---
DCP: HOME with [facility] [phone] Millicent met with pt and her son Lucas Wells [phone]. Pt s/p BKA on 12/15. Per pt, she was discharged from [facility] to home yesterday. Pt was referred to [facility] for nursing, wound care and nursing aid. HH came to do paper wk yesterday, bu services have not begun. Pt also pending w/c, shower chair and bsc to be approved and delivered. Pt lives at home with her Alexi Wells [phone]. PCP is Rossy Priest and uses [facility] for rx needs. Son signed consent for [facility]. Pt states she does not want to go back to SNF, she wants to return [place] at [place]. Family to transport by car. Millicent spoke to [facility] office, the verified that pt is on services with them for nursing and nursing aid. Addendum: 01/16/25 at 1503 by SHADE WONG Amended: Links added.
[2025-01-16] MEDS ORDERED: HONEY 1 APPL/ML TUBE TP SCH (16:00)
--- NOTE | 2025-01-16 16:00 | NUR ---
PATIENT WAS RECEIVED FROM ER VIA BED. PATIENT HAD HER PERSONAL BELONGINGS WITH HER AND WAS ACCOMPANIED BY SON.
--- NOTE | 2025-01-16 16:02 | CONS ---
[facility] CONSULTATION NOTE Date Patient Seen: Jan 16, 2025 Time of Visit: 15:32 Supervising Physician: [JANAK DRISCOLL MD ] Reason for Consultation: SOB ] Primary Care Physician: [ KATY GARCIA MD ] Outpatient Specialists: [ ] Inpatient Consults: [MIGUEL ANGEL CARVAJAL, DR ALVAREZ, ALESIA MENDOZA, DR MENDIETA, DR BATSHEVA PAREDES MD ] PROBLEM LIST: Acute on chronic CHF exacerbation with EF of 30-35% Left lower extremity edema Shortness of breaths likely in setting of CHF exacerbation Severe hyponatremia asymptomatic Right BKA History of PVD Hypertension Hyperlipidemia Hoahaoism Acute Thrombocytopenia Diabetes mellitus type 2 CKD stage 3 HPI: [This Is A 69-Year-Old Female With A Past Medical History Of Systolic And Diastolic Heart Failure With Moderate mitral regurgitation, severe tricuspid regurgitation, pulmonary hypertension, CKD stage 3, type 2 diabetes mellitus, recent right BKA which has nonhealing wound, dressing to site. Patient presented today for infected diabetic ulcer to the right BKA and left 4th and 5 th toes dark purple. Patient also reports progressive dyspnea for the last week with a nonproductive cough. She presented with no fever denies chills, denies chest pain, denies palpitations, denies nausea or vomiting. On arrival to the ED patient has a temperature 96.6 with a heart rate in the 70s respiratory rate of blood pressure 149/76 and saturating 97% on room air. COVID test was negative, pending influenza, strep and MRSA swab. On CBC H&H is 10.1/30.8 with a platelet count that is75 K. chemistry shows sodium of 119, chloride of 84, BUN of35 creatinine 1.2 and GFR of 49. Glucose of 126 mg/dL. Hemoglobin A1c in 6.6, CRP of 14.90 procalcitonin of 0.08 and TSH of 5.95. Left lower extremity venous Doppler shows no evidence of DVT. X-rays of the toes on the left showed there is no acute displaced fracture or dislocation. Degenerative changes are seen. Chest x-ray with no acute pulmonary infiltrates are seen. We are consulted for shortness of breaths by primary team. PAST MEDICAL HX: see above PAST SURGICAL HX: noncontributory SOCIAL HISTORY: No tobacco, ETOH, or illicit drug use Coded Allergies: No Known Allergies (Verified Allergy, Unknown, 01/18/24) REVIEW OF SYSTEMS: 12 point ROS reviewed with patient. Pertinent positives mentioned above. Other su negative. PHYSICAL EXAM: GENERAL: Alert and oriented x 2-3. HEENT: EOMI, Sclera non icteric, moist mucosa NECK: Supple, no JVD, trachea midline LUNGS: Rhonchi to bilateral lobes, no wheezing. HEART: Regular rate and rhythm. Normal S1 and S2, without murmurs ABD: Abdomen soft, nontender. Bowel sounds present EXT: No clubbing cyanosis or edema NEURO: Alert and oriented to person, follows commands Vital Signs (last 8hr) Date Time Temp Pulse Resp B/P (MAP) Pulse Ox O2 Delivery O2 Flow Rate FiO2 01/16/25 12:16 76 20 N/A Room Air 21 01/16/25 12:00 98.4 77 15 158/67 96 Room Air* 0 21 01/16/25 10:19 76 20 01/16/25 07:56 98.1 73 20 149/71 97 Room Air* 0 21 LABS: Hematology Labs: Test 01/16/25 08:58 Range/Units White Blood Count 7.0 4.8-10.8 K/uL Red Blood Count 3.40 L 4.00-5.50 MIL/uL Hemoglobin 10.1 L 12.0-16.0 g/dL Hematocrit 30.8 L 36-48 % Mean Corpuscular Volume 90.6 79-99 fL Mean Corpuscular Hemoglobin 29.7 27.0-33.0 pg Mean Corpuscular Hemoglobin Concent 32.8 32.0-36.0 g/dL Red Cell Distribution Width 15.2 11.0-15.5 % Platelet Count 75 L 130-400 K/uL Mean Platelet Volume 11.7 H 7.5-10.5 fL Immature Granulocyte % (Auto) 0.3 0-1 % Neutrophils (%) (Auto) 76.4 40.0-77.0 % Lymphocytes (%) (Auto) 15.7 L 21.0-51.0 % Monocytes (%) (Auto) 7.0 3.0-13.0 % Eosinophils (%) (Auto) 0.3 0.0-8.0 % Basophils (%) (Auto) 0.3 0.0-5.0 % Neutrophils # (Auto) 5.4 1.8-7.7 K/uL Lymphocytes # (Auto) 1.1 1.0-4.8 K/uL Monocytes # (Auto) 0.5 0.1-1.0 K/uL Eosinophils # (Auto) 0.02 0.00-0.70 K/uL Basophils # (Auto) 0.02 0.00-0.20 K/uL Absolute Immature Granulocyte (auto 0.02 0-1 K/uL Nucleated Red Blood Cells 0.0 0.0-0.19 % Chemistry Labs: Test 01/16/25 14:22 01/16/25 08:58 Range/Units Sodium Level 119 L 136-145 mmol/L Potassium Level 4.0 3.5-5.1 mmol/L Chloride Level 85 *L 101-111 mmol/L Carbon Dioxide Level 28 21-32 mmol/L Blood Urea Nitrogen 36 H 7-18 mg/dL Creatinine 1.1 H 0.5-1.0 mg/dL Glomerular Filtration Rate Calc 54 >90 mL/min Random Glucose 159 H 70-105 mg/dL Total Calcium 8.3 L 8.5-10.1 mg/dL Hemoglobin A1c 6.6 H 4.0-6.0 % Estimated Average Glucose (eAG) 143 H 70-126 mg/dL Troponin I High Sensitivity 17 4-50 ng/L C-Reactive Protein, Quantitative 14.90 H 0.5-3.0 mg/L B-Type Natriuretic Peptide 2400 H 0-100 pg/mL Procalcitonin 0.08 0.05-0.5 ng/mL Thyroid Stimulating Hormone (TSH) 5.95 #H 0.36-3.74 uIU/mL Coagulation Labs: Test 01/16/25 08:58 Range/Units Prothrombin Time 12.0 H 9.6-11.6 SEC Prothromb Time International Ratio 1.15 0.85-1.15 Activated Partial Thromboplast Time 29.3 26.3-35.5 SEC DIAGNOSTICS / RADIOLOGY RESULTS: [[place] [address] [address] IMAGING REPORT Signed PATIENT: MONE CARMEN MR#: [id number] : 1955 SEX: F AGE: 69 LOCATION: [facility] ORDER 0816 STATUS: ADM IN REPORT#: [id number] SERVICE REASON: left leg ORDERING PHYSICIAN: JOSÉ GUAMAN DO PROCEDURE: VENOUS UNI - US VENOUS DOPPLER UNILATERAL US VENOUS DOPPLER UNILATERAL HISTORY: Edema COMPARISON: 11/26/2024 TECHNIQUE: Left lower extremity venous Doppler ultrasound study was performed. FINDINGS: The left common femoral, femoral, popliteal, and posterior tibial veins are visualized. Normal flow with augmentation and compressibilities are demonstrated. Left greater saphenous vein is patent. IMPRESSION: 1. No evidence of deep venous thrombosis is seen. DICTATED BY: NILSA MONTAÑO MD DATE: 01/16/251148 ELECTRONICALLY SIGNED BY: NILSA MONTAÑO MD DATE: 01/16/251152 ] [place] [address] [address] [place] [id number] IMAGING REPORT Signed PATIENT: MONE CARMEN MR#: [id number] : 1955 SEX: F AGE: 69 LOCATION: [facility] ORDER 8 STATUS: ADM IN REPORT#: [id number] SERVICE 7 REASON: pain injury ORDERING PHYSICIAN: JOSÉ GUAMAN DO PROCEDURE: TOES LT - TOE(S) 2+VWS LT TOE(S) 2+VWS LT HISTORY: Pain COMPARISON: None TECHNIQUE: 3 images of left fourth and fifth toes were obtained. FINDINGS: There is no acute displaced fracture or dislocation. Degenerative changes are seen. IMPRESSION: 1. Findings as described above. DICTATED BY: NILSA MONTAÑO MD DATE: 01/16/251152 ELECTRONICALLY SIGNED BY: NILSA MONTAÑO MD DATE: 01/16/251155 [place] [id number] [id number] IMAGING REPORT Signed PATIENT: MOEN CARMEN MR#: [id number] : 1955 SEX: F AGE: 69 LOCATION: [facility] ORDER 7 STATUS: ADM IN REPORT#: [id number] SERVICE 0726 REASON: PHLEM/ COUGH ORDERING PHYSICIAN: JOSÉ GUAMAN DO PROCEDURE: CXR1VW - CHEST 1VW CHEST 1VW HISTORY: Cough COMPARISON: 11/26/2024 FINDINGS: A frontal projection of the chest was obtained. No acute pulmonary infiltrates is seen. Poststernotomy changes are seen. The heart is enlarged. Degenerative changes of the thoracolumbar spine are present. Degenerative changes are seen. Aortic calcifications are seen. IMPRESSION: 1. No acute pulmonary infiltrate is seen. DICTATED BY: NILSA MONTAÑO MD DATE: 01/16/251153 ELECTRONICALLY SIGNED BY: NILSA MONTAÑO MD DATE: 01/16/251156 PLAN ABG Sodium chloride1 g tab p.o. b.i.d. Serum Osmo Urine Osmo D-dimer Fluid restriction of 1.5 L today Daily weight Sodium checks q.6 hours Avoid quick over-correction greater than 8 mEq per L in the next 24 hours Continue diuretics per primary team NEURO: Minimize central acting medications as possible. Maintain fall precautions, adequate lighting during the day PULMONARY: Supplemental 02 as needed. Maintain aspiration precautions at all times CARDIOVASCULAR: Follow hemodynamics. Vital signs per facility protocol GI & NUTRITION: Continue with nutritional support. Continue stool softeners and laxatives as needed. KIDNEYS & ELECTROLYTES: Strict monitoring of intake, output and overall fluid balance. Avoid nephrotoxic medications to the extent possible. Medications to be dosed according to renal function. Monitor electrolytes and replace as needed ENDOCRINE: Maintain blood glucose between 100-180 at all times. Hypoglycemia protocol in place INFECTIOUS DISEASE: Trend temperature, WBC and procalcitonin level Follow cultures, deescalate antibiotics as soon as possible. Panculture if new onset fever ONCOLOGY/HEMATOLOGY/COAGULATION: Monitor for s/s of bleeding Monitor hemoglobin, coagulation studies as needed SKIN: Pressure ulcer prevention per facility protocol Specialty mattress ORTHO/REHAB: Continue PT/OT Prophylaxis: Continue GI and DVT prophylaxis Code Status: Full Resuscitation Disposition: TBD Other: Total patient care time exceeds 35 minutes excluding all procedures. ATTESTATION BY PHYSICIAN I attest that I reviewed and discussed the case with the Physician Visual Coordinator as well as agree with the Physician Visual Coordinator's findings, plans of care, and documentation above. Janak Wang MD, NELLY J ARNP Jan 16, 2025 16:02
--- NOTE | 2025-01-16 16:17 | NUR ---
REFUSAL FOR ROOFING TECHNICIAN PATIENT STATING SHE DOES NOT WANT THE LUMBER STRAIGHTENER ON BECAUSE IT KEEPS HER FROM SLEEPING COMFORTABLY. PATIENT EDUCATED ON NEED FOR TELEMETRY PATIENT'S ELECTROLYTES ARE NOT WITHIN NORMAL LIMITS AND SHE IS RECEIVING DIURETICS. EDUCATED PATIENT THAT SHE COULD POTENTIALLY HAVE POTENTIAL DYSRHYTHMIAS AND EXPLAINED THAT TELEMETRY WAS INDICATED TO MONITOR HEART RATE AND RHYTHM AND BE ABLE TO CATCH ANY ABNORMALITY AND FURTHER PROVIDE QUICKER RESPONSE TO PROVIDE POTENTIAL LIFE-SAVING CARE. DR. LOWE INFORMED OF PATIENT'S REFUSAL OF LUMBER STRAIGHTENER. PATIENT SIGNED REFUSAL OF ROOFING TECHNICIAN.
--- NOTE | 2025-01-16 16:30 | NUR ---
ABG PENDING NOTIFIED ARNEL KLEIN OF PENDING ABG TO BE DONE 2 RESPIRATORY THERAPISTS TRIED TO OBTAIN ABG, BUT WERE NOT SUCCESSFUL. ON AWAKE COUNSELOR RT TO ATTEMPT IN OBTAINING ABG.
[2025-01-16 16:51] LABS: RAPID GROUP A STREP negative (NEGATIVE)
--- NOTE | 2025-01-16 17:00 | NUR ---
PATIENT WANTING TO GET UP TO USE THE RESTROOM DID ADVISED THAT SHE CAN'T GET UP DUE TO HER BKA, DID ADVISE HER OF THE OPTION OF A BED RUSSELL OR PUREWICK. PATIENT REFUSING BED RUSSELL AND PUREWICK. PATIENT HAS REFUSAL FORM SIGNED IN CHART.
[2025-01-16 17:01] LABS: INFLUENZA TYPE A Negative For Type A (NEGATIVE); INFLUENZA TYPE B Negative For Type B (NEGATIVE)
[2025-01-16] MEDS: BUMETANIDE 1MG/4ML VIAL IVP SCH (17:07)
--- NOTE | 2025-01-16 17:44 | NUR ---
CONSULTS 1600-ARNEL KLEIN FROM [facility] HERE AND AWARE OF PULMONOLOGY CONSULT 170-DR. ALVAREZ-NEPHROLOGY CONSULT CALLED INTO ANSWERING SERVICE. SPOKE TO ESTEFANY. 170-DR. LAFLEUR-CARDIOLOGY CONSULT-NOTIFIED DR. LAFLEUR OF NEW PATIENT CONSULT. DR. LAFLEUR ACKNOWLEDGED NEW PATIENT CONSULT. PENDING TO COME SEE PATIENT. 171-DR. MENDIETA-HEMATOLOGY CONSULT-CONSULT CALLED INTO ANSWERING SERVICE FOR THROMBOCYTOPENIA. SPOKE TO
[2025-01-16 18:44] LABS: CREATININE 1.1 mg/dL (0.5-1.0); POTASSIUM 3.8 mmol/L (3.5-5.1)
[2025-01-16] MEDS: ALBUTEROL 0.042% 1.25MG/3ML IH PRN (19:20)
[2025-01-16] MEDS: SACUBITRIL/VALSARTAN 1 EACH TABLET PO SCH (20:24)
[2025-01-16] MEDS: SODIUM CHLORIDE 1,000 MG TAB PO SCH (20:24)
[2025-01-16] MEDS: SPIRONOLACTONE 25 MG TAB PO SCH (20:24)
--- NOTE | 2025-01-16 21:08 | CONS ---
CONSULT NOTE: Reason for consult: CHF, severe MR HPI/story at presentation: This is a pleasant 69-year-old female with past medical history as replacement complains of shortness of breath and lower extremity MAC, was diagnosed with CHF exacerbation, currently on diuresis. Also has issues with hyponatremia that is being addressed. Cardiology was consulted for further evaluation management. Patient is sleepy most of the history was obtained from the chart and nursing staff. Subjective: 01/16/25 resting Past medical history: See below Allergies, Meds See chart Review of systems Review of Systems Constitutional: Negative for chills and fever. HENT: Negative for ear discharge and ear pain. Eyes: Negative for photophobia and discharge. Respiratory: Negative for cough, sputum production and stridor. Cardiovascular: Negative for chest pain and palpitations. Gastrointestinal: Negative for diarrhea and vomiting. Genitourinary: Negative for frequency. Musculoskeletal: Negative for myalgias. Skin: Negative for rash. Neurological: Negative for focal weakness and seizures. Endo/Heme/Allergies: Negative for polydipsia. Psychiatric/Behavioral: Negative for hallucinations. Vitals see chart PHYSICAL EXAMINATION GENERAL: The patient is alert and oriented*3 HEENT: Nonicteric sclerae, non traumatic HEART: Regular rate and rhythm with no murmurs LUNGS: Clear to auscultation bilaterally ABDOMEN: No acute issues, non tender GENITAL, RECTAL: deferred SKIN: No rash NEUROLOGIC: NFND EXTREMITIES extremity wounds 10/2024, bka ASSESSMENT CARDIOMYOPATHY, EXACERBATION OF CHF EF of 30-35%, 10/2024 Was on Entresto spironolactone at home ANEMIA post op jehov[employer] witness CORONARY DISEASE Status post bypass, 2022 MITRAL REGURGITATION, PULMONARY HYPERTENSION Severe MR previously evaluated for clipping in [facility] past HYPONATREMIA fluid restriction 12/2024 LOWER EXTREMITY WOUNDS s/p amputation 11/2024 Severe PVD, total occlusion of the below knee vessels with reconstitution of the AT/PT 11/2024 Nonhealing With associated cellulitis Arterial duplex with evidence of decreased flow/2024 ACUTE KIDNEY INJURY history of HYPERTENSION, DIABETES Uncontrolled diabetes with A1c greater than 10, 11/26/2024 CORE MEASURES Pending OTHER MEDICAL PROBLEMS Reviewed PLAN 01/16/25 Resting comfortably, not in any acute distress, diuresis has been held, possibly related to hyponatremia, does have lower extremity edema, will consider compression. On spironolactone, may consider adding alternative agents if needed as well. Previous echo with ejection fraction of 30 to 35%. Seen and examined 01/16/2025 at around 2030 ATTESTATION I was involved substantially in the care of this patient Number and complexity of problems addressed:1 acute illness with systemic features Amount and or complexity of data Review of prior external note(s) from each unique source: 2+ Ordering of each unique test : 0 Review of the result(s) of each unique test: 2+ Assessment requiring an independent historian(s): No Independent interpretation of test performed by another MD/QHCP/appropriate source (not separately reported) : No Discussion of management or test interpretation with external MD/QHCP/appropriate source (not separately reported) : No Risk status (cardiac, billing related):Moderate LENA HERMAN MD Jan 16, 2025 21:08
[2025-01-16 22:35] LABS: POTASSIUM 3.5 mmol/L (3.5-5.1)
[2025-01-17] VITALS (16 sets, daily range): BP systolic 136–160; BP diastolic 56–82; PULSE 83–89; RESP 16–20; TEMP 97.9–98.9; O2SAT 98–100
[2025-01-17] MEDS ORDERED: PoTASSium chloRIDE 20MEQ ER 20 MEQ ERTAB PO PRN
[2025-01-17] MEDS ORDERED: PoTASSium chloRIDE 20MEQ/100ML 100 ML IV PRN
[2025-01-17] MEDS: PoTASSium chl 10% ELIXIR 20MEQ 20 MEQ/15 ML UDCUP PO PRN (01:03)
[2025-01-17 02:53] LABS: CREATININE,URINE RANDOM 6.37 mg/dL (30-135)
[2025-01-17 04:38] LABS: ALBUMIN 2.8 g/dL (3.5-5.0); BILIRUBIN,TOTAL 1.1 mg/dL (0.2-1.0); MAGNESIUM 1.7 mg/dL (1.80-2.40); PHOSPHORUS 2.7 mg/dL (2.5-4.9); POTASSIUM 4.3 mmol/L (3.5-5.1); THYROID STIMULATING HORMONE 5.83 uIU/mL (0.36-3.74)
--- NOTE | 2025-01-17 06:40 | CONS ---
NEPHROLOGY CONSULTATION REASON FOR CONSULTATION: The patient has been evaluated and seen several times. This patient has severe hyponatremia, multiple comorbidities, and CHF exacerbation. This 69-year-old lady who has underlying heart dysfunction, systolic diastolic, tricuspid regurgitation, pulmonary hypertension, diabetes, peripheral vascular disease, right below knee amputation with a nonhealing wound. The patient has been admitted with infected diabetic ulcer and shortness of breath, found to have a hyponatremia. The patient has some cough. No other associated findings. The patient has shortness of breath. No other aggravating or relieving factors. The patient is generally weak. PAST MEDICAL HISTORY: The patient's past medical history as above with CHF, mitral regurgitation, tricuspid regurgitation, diabetes, hypertension, and chronic kidney disease. PAST SURGICAL HISTORY: Right below-knee amputation. SOCIAL HISTORY: No smoking, alcohol, or drug abuse. FAMILY HISTORY: Noncontributory. ALLERGIES: No allergies. REVIEW OF SYSTEMS: CONSTITUTIONAL: No fever, chills, or rigors. HEENT: With no headache, oral ulcer, sore throat, or difficulty swallowing. RESPIRATORY: With no cough, expectoration, hemoptysis, or pleuritic pain. CARDIOVASCULAR: Has shortness of breath. No orthopnea or PND. GASTROINTESTINAL: As above with no nausea, vomiting, or diarrhea. GENITOURINARY: No dysuria or hematuria. DERMATOLOGIC: No rashes, pruritus, or skin lesion. ENDOCRINE: No polyuria, polydipsia, or polyphagia. PSYCHIATRIC: Negative for anxiety or depression. NEUROLOGIC: No seizures or syncope. PHYSICAL EXAMINATION: GENERAL: Pale. In no other distress. VITAL SIGNS: Blood pressure is 150/67, pulse 76, respiratory 20, afebrile. HEENT: Head is atraumatic and normocephalic. Pupils are round and reactive. Sclerae anicteric. Conjunctivae not pale. Oral mucosa is not dry. NECK: Supple. No masses or bruits. Thyroid is palpable. Neck has no bruits. CHEST: Shows equal thoracic percussion, note being resonant in all areas. CARDIAC: Regular rhythm. No rubs. No S3. No S4. No parasternal heave. ABDOMEN: No guarding or tenderness. Bowel sounds present. No free fluid. BACK: No back tenderness or deformities. LABORATORY DATA: We have reviewed labs in detail. Labs have shown the patient has a low hemoglobin of 10, white cell count of 7. Low sodium of 119, BUN of 35, creatinine 1.1, GFR is 54, other electrolytes reviewed. IMAGING STUDIES: Personally reviewed with a venous Doppler negative for any DVT. Old x-rays reviewed. Chest x-ray has shown increased markings slightly. Old records were all reviewed in detail. PROBLEMS: * This patient has severe hyponatremia. * CKD III. * Underlying cardiomyopathy with [id number] CHF. * Peripheral vascular disease, right below-knee amputation with edema. * The patient will have underlying cardiomyopathy, peripheral vascular disease, anemia, and multiple other comorbidities. The patient is critically ill. PLAN: * The patient is being admitted. * I will suggest monitoring of intake and output weight. * We will suggest to follow up on electrolytes. * Because of anemia, the patient will get iron panel and ferritin. * We will suggest uric acid and thyroid also. * We will suggest serial monitoring of renal function. Free water restriction should be done. * Meanwhile, no need for hypertonic saline at this time. Gentle loop diuretics can be used if hyponatremia remains persistent, and the patient has fluid overload evidence. We will follow up on all this. * Urine electrolytes and urine osmolarity should also be done. * Condition is critical and guarded. * IV Dilaudid can be used for pain 0.5 mg q. 6 hours. We have reviewed the labs and x-rays, personally discussed with Dr. Aldana. Old records, previous records, external records were reviewed and obtained. Overall condition of this patient remains guarded with multiple complex problems. Thank you for this patient. TID: [id number] RECEIPT: [id number]
--- NOTE | 2025-01-17 08:33 | PN ---
[facility] PROGRESS NOTE Date Patient Seen: Jan 17, 2025 Time of Visit: 08:32 Supervising Physician: [ JANAK DRISCOLL MD ] Primary Care Physician: [ KATY GARCIA MD ] Outpatient Specialists: [ ] Inpatient Consults: [MIGUEL ANGEL CARVAJAL, DR ALVAREZ, ALESIA MNEDOZA, DR MENDIETA, DR BATSHEVA PAREDSE MD ] PROBLEM LIST: Acute on chronic CHF exacerbation with EF of 30-35%POA Left lower extremity edema , Neg for DVT Severe hyponatremia asymptomatic, resolving Right BKA non healing surgical site History of PVD Hypertension Hyperlipidemia Protestant Acute Thrombocytopenia Diabetes mellitus type 2 CKD stage 3 This Is A 69-Year-Old Female With A Past Medical History Of Systolic And Diastolic Heart Failure With Moderate mitral regurgitation, severe tricuspid regurgitation, pulmonary hypertension, CKD stage 3, type 2 diabetes mellitus, recent right BKA which has nonhealing wound, dressing to site. Patient presented today for infected diabetic ulcer to the right BKA and left 4th and 5th toes dark purple. Patient also reports progressive dyspnea for the last week with a nonproductive cough. She presented with no fever denies chills, denies chest pain, denies palpitations, denies nausea or vomiting. INTERVAL HISTORY: Pt is awake alert and oriented x 3.Per RN overnight pt was refusing tele monitors, She has a non productive cough at this time. In NAD. She is hemodynamically stable heart rate in the 80s respiratory rate of 16 saturating 100% on room air and afebrile. On laboratory H&H stable 29.1 platelet count of 102 K improved. Chemistries shows sodium of 123 potassium of 4.3 chloride of 87 carbon dioxide 28 BUN of 32 creatinine 1.0 GFR 61. Magnesium 1.70 covered per protocol TSH of 5.83 albumin of 2.8 total bili 1.1. Patient denies any chest pain palpitations or shortness for breath at this time. She reports feeling much better. Seventy at the bedside. Went over her recent laboratory results and feeling her sodium. Answered all her questions. From pulmonary standpoint patient is stable at this time. We will sign off. Patient will need to follow-up with pulmonary service of choice 2 weeks postdischarge. Please reach to us should the need arise. On behalf of [facility] we are thankful for your team to let us participate in the care of this patient. We will be available if assistance in pulmonary critical care needed. f REVIEW OF SYSTEMS: General: No malaise or fever. Neurological: No fainting episodes or seizures. HEENT: No nasal congestion or nasal secretion. Respiratory: + non productive cough Cardiac: No chest pain or palpitations. Gastrointestinal: No vomiting or diarrhea. Genitourinary: No dysuria hematuria. Skin: No rashes or lesions. Hematological: No bruises or bleeding. Musculoskeletal: No joint pains or arthralgias. Psychiatric: No depression or panic attacks. PHYSICAL EXAM: GENERAL: Alert and oriented x 2-3. HEENT: EOMI, Sclera non icteric, moist mucosa NECK: Supple, no JVD, trachea midline LUNGS: Rhonchi to bilateral lobes, no wheezing. HEART: Regular rate and rhythm. Normal S1 and S2, without murmurs ABD: Abdomen soft, nontender. Bowel sounds present EXT: No clubbing cyanosis or edema NEURO: Alert and oriented to person, follows commands Vital Signs (last 8hr) Date Time Temp Pulse Resp B/P (MAP) Pulse Ox O2 Delivery O2 Flow Rate FiO2 01/17/25 06:30 89 18 01/17/25 06:29 89 20 N/A Room Air 21 01/17/25 03:20 98.4 87 18 154/67 99 Room Air LABS: Hematology Labs: Test 01/16/25 08:58 Range/Units White Blood Count 7.0 4.8-10.8 K/uL Red Blood Count 3.40 L 4.00-5.50 MIL/uL Hemoglobin 10.1 L 12.0-16.0 g/dL Hematocrit 30.8 L 36-48 % Mean Corpuscular Volume 90.6 79-99 fL Mean Corpuscular Hemoglobin 29.7 27.0-33.0 pg Mean Corpuscular Hemoglobin Concent 32.8 32.0-36.0 g/dL Red Cell Distribution Width 15.2 11.0-15.5 % Platelet Count 75 L 130-400 K/uL Mean Platelet Volume 11.7 H 7.5-10.5 fL Immature Granulocyte % (Auto) 0.3 0-1 % Neutrophils (%) (Auto) 76.4 40.0-77.0 % Lymphocytes (%) (Auto) 15.7 L 21.0-51.0 % Monocytes (%) (Auto) 7.0 3.0-13.0 % Eosinophils (%) (Auto) 0.3 0.0-8.0 % Basophils (%) (Auto) 0.3 0.0-5.0 % Neutrophils # (Auto) 5.4 1.8-7.7 K/uL Lymphocytes # (Auto) 1.1 1.0-4.8 K/uL Monocytes # (Auto) 0.5 0.1-1.0 K/uL Eosinophils # (Auto) 0.02 0.00-0.70 K/uL Basophils # (Auto) 0.02 0.00-0.20 K/uL Absolute Immature Granulocyte (auto 0.02 0-1 K/uL Nucleated Red Blood Cells 0.0 0.0-0.19 % Chemistry Labs: Test 01/17/25 05:39 01/17/25 03:58 01/16/25 08:58 Range/Units Whole Blood Glucose 118 H 70-110 MG/DL Sodium Level 123 L 136-145 mmol/L Potassium Level 4.3 3.5-5.1 mmol/L Chloride Level 87 *L 101-111 mmol/L Carbon Dioxide Level 28 21-32 mmol/L Blood Urea Nitrogen 32 H 7-18 mg/dL Creatinine 1.0 0.5-1.0 mg/dL Glomerular Filtration Rate Calc 61 >90 mL/min Random Glucose 119 H 70-105 mg/dL Serum Osmolality 253 L 278-305 mOsm/kg Uric Acid 6.0 2.6-7.2 mg/dL Total Calcium 8.2 L 8.5-10.1 mg/dL Phosphorus Level 2.7 2.5-4.9 mg/dL Magnesium Level 1.70 L 1.80-2.40 mg/dL Total Bilirubin 1.1 H 0.2-1.0 mg/dL Aspartate Amino Transf (AST/SGOT) 20 10-37 U/L Alanine Aminotransferase (ALT/SGPT) 23 12-78 U/L Alkaline Phosphatase 127 50-136 U/L Total Protein 6.0 6.0-8.3 g/dL Albumin 2.8 L 3.5-5.0 g/dL Thyroid Stimulating Hormone (TSH) 5.83 H 0.36-3.74 uIU/mL Hemoglobin A1c 6.6 H 4.0-6.0 % Estimated Average Glucose (eAG) 143 H 70-126 mg/dL Troponin I High Sensitivity 17 4-50 ng/L C-Reactive Protein, Quantitative 14.90 H 0.5-3.0 mg/L B-Type Natriuretic Peptide 2400 H 0-100 pg/mL Procalcitonin 0.08 0.05-0.5 ng/mL Coagulation Labs: Test 01/16/25 16:18 01/16/25 08:58 Range/Units D-Dimer Quantitative (PE/DVT) 1709 *H 0-500 ng/mL Prothrombin Time 12.0 H 9.6-11.6 SEC Prothromb Time International Ratio 1.15 0.85-1.15 Activated Partial Thromboplast Time 29.3 26.3-35.5 SEC DIAGNOSTICS / RADIOLOGY RESULTS: [ ] PLAN downgrade to medical surgical continue Sodium chloride1 g tab p.o. b.i.d. Serum Osmo Urine Osmo D-dimer Fluid restriction of 1.5 L today Daily weight Sodium checks q.6 hours Avoid quick over-correction greater than 8 mEq per L in the next 24 hours Continue diuretics per primary team NEURO: Minimize central acting medications as possible. Maintain fall precautions, adequate lighting during the day PULMONARY: Supplemental 02 as needed. Maintain aspiration precautions at all times CARDIOVASCULAR: Follow hemodynamics. Vital signs per facility protocol GI & NUTRITION: Continue with nutritional support. Continue stool softeners and laxatives as needed. KIDNEYS & ELECTROLYTES: Strict monitoring of intake, output and overall fluid balance. Avoid nephrotoxic medications to the extent possible. Medications to be dosed according to renal function. Monitor electrolytes and replace as needed ENDOCRINE: Maintain blood glucose between 100-180 at all times. Hypoglycemia protocol in place INFECTIOUS DISEASE: Trend temperature, WBC and procalcitonin level Follow cultures, deescalate antibiotics as soon as possible. Panculture if new onset fever ONCOLOGY/HEMATOLOGY/COAGULATION: Monitor for s/s of bleeding Monitor hemoglobin, coagulation studies as needed SKIN: Pressure ulcer prevention per facility protocol Specialty mattress ORTHO/REHAB: Continue PT/OT Prophylaxis: Continue GI and DVT prophylaxis Code Status: Full Resuscitation Disposition: TBD Other: ATTESTATION BY PHYSICIAN I attest that I reviewed and discussed the case with the Physician History Department Chair as well as agree with the Physician History Department Chair's findings, plans of care, and documentation above. Janak Wang MD, NELLY J ARNP Jan 17, 2025 08:33
[2025-01-17] MEDS: FAMOTIDINE 20MG VIAL IV SCH (09:36)
--- NOTE | 2025-01-17 09:38 | PN ---
[facility] PROGRESS NOTE Date of Service: Jan 17, 2025 Time of Service: 09:29 SUBJECTIVE: 69-year-old female with a past medical history of heart failure with the EF of 30-35 % moderate mitral regurgitation, severe tricuspid regurgitation, pulmonary hypertension, CKD stage 3, diabetes mellitus type 2 recent right BKA who presented to the hospital January 16, 2025 secondary to shortness a breath and swelling in the left lower extremity. Patient was previously admitted to [facility] secondary to infec blaze diabetic foot ulcer. She was evaluated by Podiatry. Orthopedic surgery was consulted and underwent right BKA during hospitalization Patient stated she has been feeling short of breath and has a productive cough. Denied any fever, chills, chest pain abdominal pain, nausea, vomiting, denied any changes in urination. She takes Lasix at home. She stated she has had previous history of hyponatremia secondary to Lasix. She sees outpatient. She had followed up with orthopedic surgery post discharge. She was recently discharged from rehab. She was going to follow up with wound care as outpatient. Labs in the ED were notable for white count of 7.0, hemoglobin was 10.1, platelet count was low at 75k, sodium was 119, potassium was 3.9, chloride was 84, creatinine was 1.3, BNP was elevated at 2400 Chest x-ray done in the very through PACU pulmonary infiltrate seen. X-ray of the left toe no acute displaced fracture or dislocation, degenerative changes seen. Venous Doppler no evidence of DVT. 01/17 patient admitted to the PCU. BP 160/73, heart rate of 85, afebrile, saturating normal on room air. CBC with a hemoglobin 10.1, hematocrit 30.8, WBC 7.0, platelet count of 75. CMP with sodium 123, potassium 4.3, BUN of 32, creatinine 1.0, magnesium of 1.7. D-dimer elevated at 1709, serology test to include influenza, SARS antigen and group A strep negative. Follow repeat CBC today, check iron level, stool occult blood, if positive we will request GI consultation, (unfortunately the patient is a Jehovah Witness) we will give 2 g of magnesium sulfate. We will attempt to do CT PE protocol versus V/Q scan if the patient agrees. Add hydralazine 5 mg IV every 6 hours as needed for SBP greater than 160, continue Aldactone 12.5 mg p.o. b.i.d., Entresto one tablet p.o. b.i.d.. Nephrology consultation requested, we will follow input and recommendation. Wound care consultation requested, follow input and recommendation, the patient noted also to have thrombocytopenia, Hematology consultation requested, we will follow input and recommendations. During my visit today patient comfortably in bed, alert oriented x3, cooperating well, denies chest pain, no shortness a breath, no nausea, no vomiting, the patient noted to have right BKA, wound looks clean, wound care is on the case per my discussion with the RN. We will downgraded the patient to the medical floor. REVIEW OF SYSTEMS CONSTITUTIONAL: Denies fevers, chills, or night sweats. No unintentional weight loss reported. NEUROLOGICAL: Denies headache, amaurosis fugax, motor weakness, sensory deficit, vertigo/spinning sensation, gait abnormalities, or tremors. ENT: No hearing loss, otalgia, otorrhea, rhinitis, rhinorrhea, hoarseness, or sore throat. CARDIOVASCULAR: Denies any exertional angina, dyspnea on exertion, orthopnea, paroxysmal nocturnal dyspnea, palpitations, life-threatening arrhythmias, claudication. PULMONARY: Positive for cough, sputum production, shortness a breath. Denied any hemoptysis GASTROINTESTINAL: Denies any type of dysphagia to either liquids or solids. Denies nausea, vomiting, pyrosis, early satiety, abdominal pain, diarrhea, constipation, or changes in stool consistency or caliber. Denies coffee-ground emesis, hematemesis, hematochezia, or melanotic stools. GENITOURINARY: Denies frequency, urgency, nocturia, hematuria or incontinence (Storage/Irritative symptoms.) Low urinary stream, straining to void, urinary intermittency or hesitancy, splitting of the voiding stream, terminal dribbling. ENDOCRINOLOGIC: Denies polyuria, polydipsia, polyphagia or heat/cold intolerances. HEMATOLOGIC: Denies thrombophilia/previous clots, or coagulopathy/bleeding disorders. ONCOLOGIC: Denies personal history of malignancy. DERMATOLOGIC: Denies rashes or pruritus. PSYCHIATRIC: Denies any suicidal or homicidal ideation. Denies hallucinations. PHYSICAL EXAM GENERAL APPEARANCE: The patient is awake, alert, and oriented, in no acute cardiopulmonary distress. NEUROLOGICAL: Cranial nerves II-XII grossly intact. Motor is 5/5 in bilateral upper and lower extremities proximal to distal. No sensory deficits. HEENT: Face is symmetric. Pupils are equal and reactive. Extraocular movements are intact. NECK: Supple. No JVD. No thyromegaly. No submental, submandibular, pre- /postauricular, occipital or supraclavicular lymphadenopathy. CHEST: Normal chest expansion. No Telemetry. LUNGS: Absence of any rales, rhonchi or any wheezing. CARDIOVASCULAR: Regular. S1 and S2 normal. No appreciable rubs, murmurs or gallops. ABDOMEN: Soft, nontender, and nondistended. There is no rebound, voluntary guarding, or rigidity. : Deferred. No Patricia. EXTREMITIES: 3+ pitting edema in the left lower extremity. She has bruising noted in the 4th and 5th digit of the left foot. Right foot with BKA. She has some jimenez discoloration on the stump site. SKIN: Betty's bruising noted in the left thigh and left calf area. Vital Signs (last 8hr) Date Time Temp Pulse Resp B/P (MAP) Pulse Ox O2 Delivery O2 Flow Rate FiO2 01/17/25 08:35 98.4 85 16 160/73 98 Room Air 01/17/25 06:30 89 18 01/17/25 06:29 89 20 N/A Room Air 21 01/17/25 03:20 98.4 87 18 154/67 99 Room Air LABS: Laboratory: Test 01/17/25 05:39 01/17/25 03:58 01/17/25 02:30 01/16/25 16:30 Range/Units Whole Blood Glucose 118 H 70-110 MG/DL Sodium Level 123 L 136-145 mmol/L Potassium Level 4.3 3.5-5.1 mmol/L Chloride Level 87 *L 101-111 mmol/L Carbon Dioxide Level 28 21-32 mmol/L Blood Urea Nitrogen 32 H 7-18 mg/dL Creatinine 1.0 0.5-1.0 mg/dL Glomerular Filtration Rate Calc 61 >90 mL/min Random Glucose 119 H 70-105 mg/dL Serum Osmolality 253 L 278-305 mOsm/kg Uric Acid 6.0 2.6-7.2 mg/dL Total Calcium 8.2 L 8.5-10.1 mg/dL Phosphorus Level 2.7 2.5-4.9 mg/dL Magnesium Level 1.70 L 1.80-2.40 mg/dL Total Bilirubin 1.1 H 0.2-1.0 mg/dL Aspartate Amino Transf (AST/SGOT) 20 10-37 U/L Alanine Aminotransferase (ALT/SGPT) 23 12-78 U/L Alkaline Phosphatase 127 50-136 U/L Total Protein 6.0 6.0-8.3 g/dL Albumin 2.8 L 3.5-5.0 g/dL Thyroid Stimulating Hormone (TSH) 5.83 H 0.36-3.74 uIU/mL Urine Random Creatinine 6.37 L 30-135 mg/dL Urine Random Sodium 69 40-220 mmol/l Urine Random Potassium 12 L 25-125 mmol/L Urine Random Chloride 82 L 110-250 mmol/L Influenza Type A Antigen Negative For Type A NEGATIVE Influenza Type B Antigen Negative For Type B NEGATIVE Group A Streptococcus Rapid negative NEGATIVE Test 01/16/25 16:18 01/16/25 09:27 01/16/25 08:58 Range/Units D-Dimer Quantitative (PE/DVT) 1709 *H 0-500 ng/mL SARS-CoV-2 Antigen (Rapid) PRESUMPTIVE NEGATIVE NEGATIVE White Blood Count 7.0 4.8-10.8 K/uL Red Blood Count 3.40 L 4.00-5.50 MIL/uL Hemoglobin 10.1 L 12.0-16.0 g/dL Hematocrit 30.8 L 36-48 % Mean Corpuscular Volume 90.6 79-99 fL Mean Corpuscular Hemoglobin 29.7 27.0-33.0 pg Mean Corpuscular Hemoglobin Concent 32.8 32.0-36.0 g/dL Red Cell Distribution Width 15.2 11.0-15.5 % Platelet Count 75 L 130-400 K/uL Mean Platelet Volume 11.7 H 7.5-10.5 fL Immature Granulocyte % (Auto) 0.3 0-1 % Neutrophils (%) (Auto) 76.4 40.0-77.0 % Lymphocytes (%) (Auto) 15.7 L 21.0-51.0 % Monocytes (%) (Auto) 7.0 3.0-13.0 % Eosinophils (%) (Auto) 0.3 0.0-8.0 % Basophils (%) (Auto) 0.3 0.0-5.0 % Neutrophils # (Auto) 5.4 1.8-7.7 K/uL Lymphocytes # (Auto) 1.1 1.0-4.8 K/uL Monocytes # (Auto) 0.5 0.1-1.0 K/uL Eosinophils # (Auto) 0.02 0.00-0.70 K/uL Basophils # (Auto) 0.02 0.00-0.20 K/uL Absolute Immature Granulocyte (auto 0.02 0-1 K/uL Nucleated Red Blood Cells 0.0 0.0-0.19 % Prothrombin Time 12.0 H 9.6-11.6 SEC Prothromb Time International Ratio 1.15 0.85-1.15 Activated Partial Thromboplast Time 29.3 26.3-35.5 SEC Hemoglobin A1c 6.6 H 4.0-6.0 % Estimated Average Glucose (eAG) 143 H 70-126 mg/dL Troponin I High Sensitivity 17 4-50 ng/L C-Reactive Protein, Quantitative 14.90 H 0.5-3.0 mg/L B-Type Natriuretic Peptide 2400 H 0-100 pg/mL Procalcitonin 0.08 0.05-0.5 ng/mL Current Medications Medications (Trade) Dose Ordered Sig/Maci Route PRN Reason Start Time Stop Time Status Last Admin Dose Admin Albuterol Sulfate (Proventil 0.042% 1.25mg/ 3ml) 1.25 mg [id number] PRN IH sob/wheezing 01/16/25 10:30 02/15/25 10:29 01/17/25 06:27 1.25 MG Bumetanide (Bumex 1mg Vial) 1 mg Q12H IVP 01/16/25 17:00 01/17/25 09:18 DC 01/16/25 17:07 1 MG Famotidine (Pepcid 20mg Vial) 20 mg QODAY IV 01/17/25 09:00 02/16/25 08:59 Guaifenesin/ Dextromethorphan (RobiTUSSin DM 200/20MG 10ML) 5 ml Q6H PRN PO COUGH 01/16/25 10:30 02/15/25 10:29 Leptospermum Honey ([facility]) 1 appl AD TP 01/16/25 16:00 01/16/25 15:35 DC Potassium Chloride 100 ml @ 100 mls/hr AD PRN IV POTASSIUM PROTOCOL 01/17/25 00:00 02/16/25 00:00 Potassium Chloride (K-Dur/Klor-Con 20meq) 20 meq AD PRN PO POTASSIUM PROTOCOL 01/17/25 00:00 02/16/25 00:00 Potassium Chloride (KCl 10% Elixir 20meq/15ml) 20 meq AD PRN PO POTASSIUM PROTOCOL 01/17/25 00:00 02/16/25 00:00 01/17/25 02:47 20 MEQ Sacubitril/ Valsartan (Entresto 24 Mg-26 Mg Tablet) 1 each BID PO 01/16/25 21:00 02/15/25 20:59 01/16/25 20:24 1 EACH Sodium Chloride (Sodium Chloride) 1,000 mg BID PO 01/16/25 21:00 02/15/25 20:59 01/16/25 20:24 1,000 MG Spironolactone (Aldactone 25mg) 12.5 mg BID PO 01/16/25 21:00 02/15/25 20:59 01/16/25 20:24 12.5 MG DIAGNOSTICS / RADIOLOGY: [ ] ASSESSMENT: Acute on chronic CHF exacerbation with EF of 30-35% Left lower extremity edema Shortness of breaths likely in setting of CHF exacerbation Severe hyponatremia asymptomatic Right BKA History of PVD Hypertension Hyperlipidemia Cheondoism Thrombocytopenia Diabetes mellitus type 2 CKD stage 3 PLAN: patient admitted to the PCU. BP 160/73, heart rate of 85, afebrile, saturating normal on room air. CBC with a hemoglobin 10.1, hematocrit 30.8, WBC 7.0, platelet count of 75. CMP with sodium 123, potassium 4.3, BUN of 32, creatinine 1.0, magnesium of 1.7. D-dimer elevated at 1709, serology test to include influenza, SARS antigen and group A strep negative. Follow repeat CBC today, check iron level, stool occult blood, if positive we will request GI consultation, (unfortunately the patient is a Jehovah Witness) we will give 2 g of magnesium sulfate. We will attempt to do CT PE protocol versus V/Q scan if the patient agrees. Add hydralazine 5 mg IV every 6 hours as needed for SBP greater than 160, continue Aldactone 12.5 mg p.o. b.i.d., Entresto one tablet p.o. b.i.d.. Nephrology consultation requested, we will follow input and recommendation. Wound care consultation requested, follow input and recommendation, the patient noted also to have thrombocytopenia, Hematology consultation requested, we will follow input and recommendations. NEURO: Minimize central acting medications as possible. Fall Precautions. Well lighted room through the day and minimize interruptions through the night to prevent acute delirium. PULMONARY: Supplemental 02 as needed BiPAP as necessary, for respiratory distress Titrate Fio2 to keep Spo2 > or = 90% DuoNebs and CPT as needed IS hourly while awake for pulmonary hygiene prn Out of bed to chair as tolerated Maintain aspiration precautions at all times CARDIOVASCULAR: Follow hemodynamics. Vital signs per facility protocol GI & NUTRITION: Continue nutritional support Aspirations precautions Prokinetic agents and laxatives as needed KIDNEYS & ELECTROLYTES: Strict monitoring of intake and output Daily weights Avoid nephrotoxic agents Monitor electrolytes and replace as needed Goal urine output of 30mL/hr or 0.5mL/kg/hr Medications to be dosed according to renal function. Avoid contrast if possible ENDOCRINE: Maintain blood glucose between 100-180 at all times. Insulin sliding scale for blood glucose management Hypoglycemia and hyperglycemia protocol in place INFECTIOUS DISEASE: Trend temperature, WBC and procalcitonin level Follow cultures, deescalate antibiotics as soon as possible. Panculture if new onset fever HEMATOLOGY & COAGULATION: Monitor H&H. Keep Hgb > 7 Transfuse 1 unit of PRBC for Hgb < 7 Transfuse 1 pack of platelets of platelets < 20, 000 Watch for any signs and symptoms of bleeding SKIN: Pressure ulcer prevention per facility protocol Specialty mattress as needed ORTHO/REHAB Continue PT/OT PRN: MEDICATIONS Tylenol 650 mg po every 4 hrs for fever zofran 4 mg IV every 6 hrs for n/v Hydralazine 5 mg IV every 4 hrs systolic pressure > 160 bowel regiment: lactulose 20 gm PO BID PRN constipation Supportive measures: Continue GI and DVT prophylaxis Disposition: Pending improvement in clinical condition All questions answered time spent: > 35 min ALEJO JONES MD Jan 17, 2025 09:38
[2025-01-17 09:49] LABS: % IRON SATURATION 7.6 % (22-44)
[2025-01-17] MEDS: MAGNESIUM 2GM PREMIX 50ML 50 ML IV SCH (09:53)
[2025-01-17] MEDS ORDERED: hydrALAZine 20MG/ML VIAL IV PRN (10:00)
[2025-01-17 10:02] LABS: HEMATOCRIT 29.1 % (36-48); MEAN CORPUSCULAR HEMOGLOBIN 30.5 pg (27.0-33.0); MEAN CORPUSCULAR HGB CONC 34.4 g/dL (32.0-36.0); MEAN CORPUSCULAR VOLUME 88.7 fL (79-99); RED BLOOD CELL COUNT(AUTO) 3.28 MIL/uL (4.00-5.50); RED CELL DISTRIBUTION WIDTH 15.7 % (11.0-15.5); WHITE BLOOD COUNT (AUTO) 7.1 K/uL (4.8-10.8)
--- NOTE | 2025-01-17 11:12 | PN ---
NEPHROLOGY PROGRESS NOTE Date/Time Patient Seen: Jan 17, 2025 SUBJECTIVE: This is a 69-year-old female with underlying history of severe cardiomyopathy with LVEF of 30-35%, moderate mitral regurgitation, severe tricuspid regurgitation, pulmonary hypertension, CKD stage 3, poorly controlled type 2 uzma betes mellitus, hypertension She presented to the ER with complains of shortness a breath and swelling in the left lower extremity She continues on fluid restriction and sodium chloride tablets We are consulted for hyponatremia. Sodium level is improving Renal function is stable. Iron panel was noted She was seen in the medical floor, in no acute distress No family at the bedside Prognosis remains guarded REVIEW OF SYSTEMS: GENERAL: Positive for generalized weakness NEUROLOGIC: Negative for any blurry vision, blind spots, double vision, facial asymmetry, dysphagia, dysarthria, hemiparesis, hemisensory deficits, vertigo, ataxia. HEENT: Negative for any head trauma, neck trauma, neck stiffness, photophobia, phonophobia, sinusitis, rhinitis. CARDIAC: Negative for any chest pain, dyspnea on exertion, paroxysmal nocturnal dyspnea, peripheral edema. PULMONARY: Negative for any shortness of breath, wheezing, COPD, or TB exposure. GASTROINTESTINAL: Negative for any abdominal pain, nausea, vomiting, bright red blood per rectum, melena. GENITOURINARY: Negative for any dysuria, hematuria, incontinence. INTEGUMENTARY: Negative for any rashes, cuts, insect bites. RHEUMATOLOGIC: Negative for any joint pains, photosensitive rashes, history of vasculitis or kidney problems. HEMATOLOGIC: Negative for any abnormal bruising, frequent infections or bleeding. Vital Signs (last 8hr) Date Time Temp Pulse Resp B/P (MAP) Pulse Ox O2 Delivery O2 Flow Rate FiO2 01/17/25 08:35 98.4 85 16 160/73 98 Room Air 01/17/25 06:30 89 18 01/17/25 06:29 89 20 N/A Room Air 21 01/17/25 03:20 98.4 87 18 154/67 99 Room Air PHYSICAL EXAM: GENERAL: Alert and oriented x 3. No acute distress. Well-nourished. EYES: EOMI. Anicteric. HENT: Moist mucous membranes. No scleral icterus. No cervical lymphadenopathy. LUNGS: Clear to auscultation bilaterally. No accessory muscle use. CARDIOVASCULAR: Regular rate and rhythm. No murmur. No JVD. ABDOMEN: Soft, non-tender and non-distended. No palpable masses. EXTREMITIES: No edema. Non-tender. SKIN: No rashes or lesions. Warm. NEUROLOGIC: No focal neurological deficits. CN II-XII grossly intact, but not individually tested. PSYCHIATRIC: Cooperative. Appropriate mood and affect. Current Medications Medications (Trade) Dose Ordered Sig/Maci Route PRN Reason Start Time Stop Time Status Last Admin Dose Admin Albuterol Sulfate (Proventil 0.042% 1.25mg/ 3ml) 1.25 mg [id number] PRN IH sob/wheezing 01/16/25 10:30 02/15/25 10:29 01/17/25 06:27 1.25 MG Bumetanide (Bumex 1mg Vial) 1 mg Q12H IVP 01/16/25 17:00 01/17/25 09:18 DC 01/16/25 17:07 1 MG Famotidine (Pepcid 20mg Vial) 20 mg QODAY IV 01/17/25 09:00 02/16/25 08:59 01/17/25 09:36 20 MG Guaifenesin (RobiTUSSin SUGAR-FREE 100 MG/ 5 ML UDCUP) 400 mg Q6H6 PRN PO COUGH 01/17/25 11:00 02/16/25 10:59 UNV Guaifenesin/ Dextromethorphan (RobiTUSSin DM 200/20MG 10ML) 5 ml Q6H PRN PO COUGH 01/16/25 10:30 02/15/25 10:29 Hydralazine HCl (APRESOLine 20MG INJ) 5 mg Q6H PRN IV ADMINISTER FOR SBP > 160 01/17/25 10:00 02/16/25 09:59 Leptospermum Honey (Energenohoney) 1 appl AD TP 01/16/25 16:00 01/16/25 15:35 DC Magnesium Sulfate 50 ml @ 0 mls/hr PROTOCOL IV 01/17/25 10:00 02/16/25 09:59 01/17/25 09:53 25 MLS/HR Potassium Chloride 100 ml @ 100 mls/hr AD PRN IV POTASSIUM PROTOCOL 01/17/25 00:00 02/16/25 00:00 Potassium Chloride (K-Dur/Klor-Con 20meq) 20 meq AD PRN PO POTASSIUM PROTOCOL 01/17/25 00:00 02/16/25 00:00 Potassium Chloride (KCl 10% Elixir 20meq/15ml) 20 meq AD PRN PO POTASSIUM PROTOCOL 01/17/25 00:00 02/16/25 00:00 01/17/25 02:47 20 MEQ Sacubitril/ Valsartan (Entresto 24 Mg-26 Mg Tablet) 1 each BID PO 01/16/25 21:00 02/15/25 20:59 01/17/25 09:36 1 EACH Sodium Chloride (Sodium Chloride) 1,000 mg BID PO 01/16/25 21:00 02/15/25 20:59 01/17/25 09:36 1,000 MG Spironolactone (Aldactone 25mg) 12.5 mg BID PO 01/16/25 21:00 02/15/25 20:59 01/17/25 09:36 12.5 MG LABORATORY: [ ] Hematology Labs: Test 01/17/25 07:43 01/16/25 08:58 Range/Units White Blood Count 7.1 4.8-10.8 K/uL Red Blood Count 3.28 L 4.00-5.50 MIL/uL Hemoglobin 10.0 L 12.0-16.0 g/dL Hematocrit 29.1 L 36-48 % Mean Corpuscular Volume 88.7 79-99 fL Mean Corpuscular Hemoglobin 30.5 27.0-33.0 pg Mean Corpuscular Hemoglobin Concent 34.4 32.0-36.0 g/dL Red Cell Distribution Width 15.7 H 11.0-15.5 % Platelet Count 102 #L 130-400 K/uL Mean Platelet Volume 11.2 H 7.5-10.5 fL Nucleated Red Blood Cells 0.0 0.0-0.19 % Immature Granulocyte % (Auto) 0.3 0-1 % Neutrophils (%) (Auto) 76.4 40.0-77.0 % Lymphocytes (%) (Auto) 15.7 L 21.0-51.0 % Monocytes (%) (Auto) 7.0 3.0-13.0 % Eosinophils (%) (Auto) 0.3 0.0-8.0 % Basophils (%) (Auto) 0.3 0.0-5.0 % Neutrophils # (Auto) 5.4 1.8-7.7 K/uL Lymphocytes # (Auto) 1.1 1.0-4.8 K/uL Monocytes # (Auto) 0.5 0.1-1.0 K/uL Eosinophils # (Auto) 0.02 0.00-0.70 K/uL Basophils # (Auto) 0.02 0.00-0.20 K/uL Absolute Immature Granulocyte (auto 0.02 0-1 K/uL Chemistry Labs: Test 01/17/25 05:39 01/17/25 03:58 01/17/25 03:35 01/16/25 08:58 Range/Units Whole Blood Glucose 118 H 70-110 MG/DL Sodium Level 123 L 136-145 mmol/L Potassium Level 4.3 3.5-5.1 mmol/L Chloride Level 87 *L 101-111 mmol/L Carbon Dioxide Level 28 21-32 mmol/L Blood Urea Nitrogen 32 H 7-18 mg/dL Creatinine 1.0 0.5-1.0 mg/dL Glomerular Filtration Rate Calc 61 >90 mL/min Random Glucose 119 H 70-105 mg/dL Serum Osmolality 253 L 278-305 mOsm/kg Uric Acid 6.0 2.6-7.2 mg/dL Total Calcium 8.2 L 8.5-10.1 mg/dL Phosphorus Level 2.7 2.5-4.9 mg/dL Magnesium Level 1.70 L 1.80-2.40 mg/dL Total Bilirubin 1.1 H 0.2-1.0 mg/dL Aspartate Amino Transf (AST/SGOT) 20 10-37 U/L Alanine Aminotransferase (ALT/SGPT) 23 12-78 U/L Alkaline Phosphatase 127 50-136 U/L Total Protein 6.0 6.0-8.3 g/dL Albumin 2.8 L 3.5-5.0 g/dL Thyroid Stimulating Hormone (TSH) 5.83 H 0.36-3.74 uIU/mL Iron Level 15 #L 50-170 mcg/dL Total Iron Binding Capacity 197 L 250-450 mcg/dL Percent Iron Saturation 7.6 L 22-44 % Hemoglobin A1c 6.6 H 4.0-6.0 % Estimated Average Glucose (eAG) 143 H 70-126 mg/dL Troponin I High Sensitivity 17 4-50 ng/L C-Reactive Protein, Quantitative 14.90 H 0.5-3.0 mg/L B-Type Natriuretic Peptide 2400 H 0-100 pg/mL Procalcitonin 0.08 0.05-0.5 ng/mL Coagulation Labs: Test 01/16/25 16:18 01/16/25 08:58 Range/Units D-Dimer Quantitative (PE/DVT) 1709 *H 0-500 ng/mL Prothrombin Time 12.0 H 9.6-11.6 SEC Prothromb Time International Ratio 1.15 0.85-1.15 Activated Partial Thromboplast Time 29.3 26.3-35.5 SEC DIAGNOSTICS / RADIOLOGY: REASON: left leg ORDERING PHYSICIAN: JOSÉ GUAMAN DO PROCEDURE: VENOUS UNI - US VENOUS DOPPLER UNILATERAL US VENOUS DOPPLER UNILATERAL HISTORY: Edema COMPARISON: 11/26/2024 TECHNIQUE: Left lower extremity venous Doppler ultrasound study was performed. FINDINGS: The left common femoral, femoral, popliteal, and posterior tibial veins are visualized. Normal flow with augmentation and compressibilities are demonstrated. Left greater saphenous vein is patent. IMPRESSION: 1. No evidence of deep venous thrombosis is seen. DICTATED BY: NILSA MONTAÑO MD DATE: 01/16/25 1149 REASON: pain injury ORDERING PHYSICIAN: JOSÉ GUAMAN DO PROCEDURE: TOES LT - TOE(S) 2+VWS LT TOE(S) 2+VWS LT HISTORY: Pain COMPARISON: None TECHNIQUE: 3 images of left fourth and fifth toes were obtained. FINDINGS: There is no acute displaced fracture or dislocation. Degenerative changes are seen. IMPRESSION: 1. Findings as described above. DICTATED BY: NILSA MONTAÑO MD DATE: 01/16/25 1153 REASON: PHLEM/ COUGH ORDERING PHYSICIAN: JOSÉ GAUMAN DO PROCEDURE: CXR1VW - CHEST 1VW CHEST 1VW HISTORY: Cough COMPARISON: 11/26/2024 FINDINGS: A frontal projection of the chest was obtained. No acute pulmonary infiltrates is seen. Poststernotomy changes are seen. The heart is enlarged. Degenerative changes of the thoracolumbar spine are present. Degenerative changes are seen. Aortic calcifications are seen. IMPRESSION: 1. No acute pulmonary infiltrate is seen. DICTATED BY: NILSA MONTAÑO MD DATE: 01/16/25 1151 ASSESSMENT: Hyponatremia Shortness of breath Fluid overload CKD III Anemia Acute on chronic CHF exacerbation with EF of 30-35% Left lower extremity edema Significant PAD of the lower extremities S/P right BKA Poorly controlled type 2 diabetes mellitus Hypertension Hyperlipidemia Underlying history of coronary artery disease with prior history of multivessel CABG in 2022 History of Nondenominational declining blood product transfusion, Noncompliance PLAN: Labs, diagnostic, radiologic exams reviewed and interpreted by myself and supervising physician. We have reviewed external records in detail She was counseled on the importance of fluid restriction Continue with sodium chloride tablets 1.5 L fluid restriction is recommended Require close monitoring of renal function and electrolytes Order CBC, CMP, and electrolytes in am Continue with antibiotics Renal diabetic diet BiPAP as necessary, for respiratory distress Monitor blood pressure adjust medication doses as needed Avoid hypotensive episodes May use Dilaudid 0.5 mg IV every 6 hours as needed for severe pain Monitor blood sugars Strict intake, output, and daily weight should be monitored Please renally adjust medications Avoid nephrotoxic and nonsteroidal drugs Avoid contrast if possible Will continue to monitor renal function, anemia, electrolytes Treatment plan discussed with patient Questions were answered We have discussed with the other team physicians in detail about the care plan We will continue to monitor the patient closely ATTESTATION BY PHYSICIAN I have seen and examined the patient. I reviewed the documentation, medical decision making, and treatment plan as noted by the mid-level provider above. I agree with the findings and plan of care. Patient was seen several times today and total time spent was more than 50 minutes EVA ALVAREZ MD, [facility] Jan 17, 2025 11:12 EVA ALVAREZ MD Jan 17, 2025 19:51
[2025-01-17] MEDS ORDERED: FURO20TA4 PO (11:38)
[2025-01-17] MEDS ORDERED: CARV6.25 PO (11:43)
[2025-01-17] MEDS ORDERED: PHARMACY COMMUNICATION MISC SCH ×2 (12:00→17:00)
[2025-01-17] MEDS ORDERED: HONEY 1 APPL/ML TUBE TP PRN (13:00)
[2025-01-17] MEDS: HONEY 1 APPL/ML TUBE TP SCH (13:28)
[2025-01-17] MEDS ORDERED: IRON sUCROse COMPLEX 100 MG/5 ML VIAL IVP SCH (13:30)
--- NOTE | 2025-01-17 13:57 | PN ---
Patient is a 69-year-old female with a past medical history of heart failure with the EF of 30-35 %l moderate mitral regurgitation, severe tricuspid regurgitation, pulmonary hypertension, CKD stage 3, diabetes mellitus type from the my hypertension going to history of recent right BKA who presented to the hospitalist secondary to shortness a breath and swelling in the left lower extremity. Patient was previously to [facility] secondary to infected diabetic foot ulcer. The she was evaluated by ID ,podiatry. Orthopedic surgery was consulted, and the patient underwent a right BKA during hospitalization. Patient reports taking Lasix at home, and per nurse patient reports taking extra doses of her Lasix due to her left lower leg edema. She states she has had previous history of hyponatremia secondary to Lasix. The patient follows with billing specialist Dr. Gipson. Labs in the ED were notable for white count of 7.0, hemoglobin was 10.1, platelet count was low at 75k, sodium was 119, potassium was 3.9, chloride was 84, creatinine was 1.3, BNP was elevated at 2400. A chest x-ray done in the emergency department was negative, venous Doppler was negative, x-ray of the toe was negative. Patient reports easy bruising. Hematology was consulted due to thrombocytopenia. HISTORY PHM: CHF, EF of 30-35% going to history of moderate mitral regurgitation history of severe tricuspid regurgitation for laundry for CKD stage 3, diabetes mellitus type 2 PSH: History of right below-knee amputation in November 2024 SH: denied any smoking, alcohol, drug use FH: Noncontributory ALLERGIES: Coded Allergies: No Known Allergies (Verified Allergy, Unknown, 01/18/24) REVIEW OF SYSTEMS CONSTITUTIONAL: No FEVER, No SWEATS, No CHILLS, No WEIGHT LOSS HEENT: No JAUNDICE, No SORE THROAT, No SINUS PRESSURE, No VISION CHANGES RESPIRATORY: No COUGH, No CHEST PAIN, No SHORTNESS OF BREATH, No HEMOPTYSIS CARDIOVASCULAR: No PALPATIONS, No DYSPNEA ON EXERTION, No SYNCOPE GASTROINTESTINAL: No NAUSEA, No VOMITING, No DIARRHEA, No DYSPHAGIA, No CONSTIPATION, No ABDOMINAL PAIN, No HEMATEMESIS, No HEMATOCHEZIA, No MELENA GENITOURINARY: No DYSURIA, No HEMATURIA HEMATOLOGIC/LYMPHATIC: EASY BRUISING; No CERVICAL ADENOPATHY, No AXILLARY ADENOPATHY, No INGUINAL ADENOPATHY MUSCULOSKELETAL: No BONE PAIN, No MASS, No NORMAL RANGE OF MOTION SKIN/BREASTS: No BREAST MASS, No NIPPLE INVERSION, No RASH NEUROLOGICAL: No WEAKNESS-EXTREMETIES, No DIPLOPIA, No NUMBNESS, No TINGLING PSYCHOLOGICAL: No SUICIDAL IDEATION PHYSICAL EXAM VITALS: Vital Signs Date Time Temp Pulse Resp B/P (MAP) Pulse Ox O2 Delivery O2 Flow Rate FiO2 01/16/25 12:16 76 20 N/A Room Air 21 01/16/25 12:00 98.4 158/67 96 0 GENERAL: ALERT, ORIENTED, APPEARS-NO ACUTE DISTRESS EYES: SCLERAE ANICTERIC, PUPILS EQUAL/REACTIVE, EXTRAOCULAR MUSCLES INTCT ENT/NECK: ORAL MUCOSA W/O LESIONS, OROPHARYNX IS CLEAR, NECK SUPPLE W/O MASSES RESPIRATORY: LUNGS CLEAR-AUSC/PERCUS CARDIOVASCULAR: REGULAR RATE, REGULAR RHYTHM GASTROINTESTINAL: ABDOMEN IS SOFT; No TENDER, No DISTENDED, No HEPATOSPLENOMEGALY; BOWEL SOUNDS PRESENT; No PALPABLE MASSES HEMATOLOGY/LYMPHATIC: No CERVICAL ADENOPATHY, No SUPRACLAVICULR ADENOPATHY, No AXILLARY ADENOPATHY, No INGUINAL ADENOPATHY MUSCULOSKELETAL: EDEMA SKIN/BREASTS: No MASSES, No RASH, No HIVES NEUROLOGICAL: GROSSLY INTACT PSYCHOLOGICAL: MINI MENTAL ASSMT INTACT Assessment 1. Thrombocytopenia 2. Anemia 3. Hyponatremia 4. Congestive heart failure 5. Peripheral vascular disease status post right below-knee amputation 6. [facility] 7. Diabetes mellitus Plan 1. This patient to continue on IV iron while in the hospital. This patient will need oral iron to be given every other day in the outpatient setting for at least 6 months. 2. There was hypersegmented neutrophils. This patient to be started on folic acid 1 mg p.o. daily and vitamin B12 1000 mcg p.o. daily. 3. This patient is [facility]. This patient does not accept blood products. 4. This patient continued to be with hyponatremia. Continue care as per primary. 5. If this patient discharged to follow-up with me in the next 4 weeks 6. This patient could benefit from Procrit especially if hemoglobin is below 10g/dl Vitals/Labs Vital Signs Date Time Temp Pulse Resp B/P (MAP) Pulse Ox O2 Delivery O2 Flow Rate FiO2 01/17/25 12:00 99.0 88 16 143/70 95 Room Air 01/17/25 11:07 21 01/16/25 20:30 0 Laboratory Tests 01/16/25 14:22 01/16/25 16:00 01/16/25 18:30 01/16/25 22:17 01/17/25 03:58 01/17/25 07:43 Medications Current Medications Bumetanide 1 mg ONCE ONCE IVP Last administered on 01/16/25at 07:48; Start 01/16/25 at 08:00; Stop 01/16/25 at 08:01; Status DC Albuterol Sulfate 2.5MG ONCE ONCE IH Last administered on 01/16/25at 10:03; Start 01/16/25 at 09:30; Stop 01/16/25 at 09:31; Status DC Famotidine 20 mg QODAY IV Last administered on 01/17/25at 09:36; Start 01/17/25 at 09:00; Stop 02/16/25 at 08:59 Guaifenesin/ Dextromethorphan 5 ml Q6H PRN PO; Start 01/16/25 at 10:30; Stop 02/15/25 at 10:29 Albuterol Sulfate 1.25 mg [id number] PRN IH Last administered on 01/17/25at 11:06; Start 01/16/25 at 10:30; Stop 02/15/25 at 10:29 Bumetanide 1 mg Q12H IVP Last administered on 01/16/25at 17:07; Start 01/16/25 at 17:00; Stop 01/17/25 at 09:18; Status DC Sacubitril/ Valsartan 1 each BID PO Last administered on 01/17/25at 09:36; Start 01/16/25 at 21:00; Stop 02/15/25 at 20:59 Spironolactone 12.5 mg BID PO Last administered on 01/17/25at 09:36; Start 01/16/25 at 21:00; Stop 02/15/25 at 20:59 Lorazepam 0.5 mg ONCE ONCE PO Last administered on 01/16/25at 11:58; Start 01/16/25 at 12:00; Stop 01/16/25 at 12:01; Status DC Sodium Chloride 4 ml STK-MED ONCE IH Last administered on 01/16/25at 14:32; Start 01/16/25 at 14:13; Stop 01/16/25 at 14:13; Status DC Leptospermum Honey 1 appl AD TP; Start 01/16/25 at 16:00; Stop 01/16/25 at 15:35; Status DC Sodium Chloride 1,000 mg BID PO Last administered on 01/17/25at 09:36; Start 01/16/25 at 21:00; Stop 02/15/25 at 20:59 Sodium Chloride 4 ml STK-MED ONCE IH Last administered on 01/16/25at 19:20; Start 01/16/25 at 18:15; Stop 01/16/25 at 18:16; Status DC Sodium Chloride 4 ml STK-MED ONCE IH; Start 01/16/25 at 22:52; Stop 01/16/25 at 22:53; Status DC Sodium Chloride 4 ml STK-MED ONCE IH Last administered on 01/16/25at 23:24; Start 01/16/25 at 23:14; Stop 01/16/25 at 23:14; Status DC Potassium Chloride 100 ml @ 100 mls/hr AD PRN IV; Start 01/17/25 at 00:00; Stop 02/16/25 at 00:00 Potassium Chloride 20 meq AD PRN PO Last administered on 01/17/25at 02:47; Start 01/17/25 at 00:00; Stop 02/16/25 at 00:00 Potassium Chloride 20 meq AD PRN PO; Start 01/17/25 at 00:00; Stop 02/16/25 at 00:00 Hydralazine HCl 5 mg Q6H PRN IV; Start 01/17/25 at 10:00; Stop 02/16/25 at 09:59 Magnesium Sulfate 50 ml @ 0 mls/hr PROTOCOL IV Last administered on 01/17/25at 09:53; Start 01/17/25 at 10:00; Stop 02/16/25 at 09:59 Guaifenesin 400 mg Q6H6 PRN PO; Start 01/17/25 at 11:00; Stop 02/16/25 at 10:59 Pharmacy Profile Note 1 each ONCE MISC; Start 01/17/25 at 12:00; Stop 01/17/25 at 11:59; Status DC Leptospermum Honey 1 APPLICATION DAILY TP Last administered on 01/17/25at 13:28; Start 01/17/25 at 13:00; Stop 02/16/25 at 12:59 Leptospermum Honey 1 APPLICATION AD PRN TP; Start 01/17/25 at 13:00; Stop 01/17/25 at 12:52; Status DC Iron Sucrose 300 mg Q24H IVP; Start 01/17/25 at 13:30; Stop 01/17/25 at 13:14; Status DC Iron Sucrose 300 mg/Sodium Chloride 250 ml @ 83 mls/hr Q24H IV; Start 01/17/25 at 14:00; Stop 01/19/25 at 17:01 KASIE MENDIETA MD Jan 17, 2025 13:57
[2025-01-17] MEDS: IRON SUCROSE COMPLEX 300 MG+/NS 250ML IV SCH (15:49)
[2025-01-17] MEDS: guaiFENesin SUGAR-FREE 100 MG/5 ML UDCUP PO PRN (15:49)
[2025-01-17] MEDS ORDERED: COMPOUND IV MISC 1 EACH IVSOLN MISC PRN (16:00)
--- NOTE | 2025-01-17 18:15 | NUR ---
received patient placed in room 305 [id number].orinted to room resumed intravenous fluids from transfer.
[2025-01-17] MEDS: BALSAM PERU/CASTOR OIL 60 GM TUBE TP SCH (22:05)
[2025-01-17] MEDS: NYSTatin 15 GM POWDER TP SCH (22:05)
--- NOTE | 2025-01-17 22:20 | PN ---
CHF, severe MR HPI/story at presentation: This is a pleasant 69-year-old female with past medical history as replacement complains of shortness of breath and lower extremity MAC, was diagnosed with CHF exacerbation, currently on diuresis. Also has issues with hyponatremia that is being addressed. Cardiology was consulted for further evaluation management. Patient is sleepy most of the history was obtained from the chart and nursing staff. Subjective: 01/16/25 resting 01/17/2025 no complaints Past medical history: See below Allergies, Meds See chart Review of systems Review of Systems Constitutional: Negative for chills and fever. HENT: Negative for ear discharge and ear pain. Eyes: Negative for photophobia and discharge. Respiratory: Negative for cough, sputum production and stridor. Cardiovascular: Negative for chest pain and palpitations. Gastrointestinal: Negative for diarrhea and vomiting. Genitourinary: Negative for frequency. Musculoskeletal: Negative for myalgias. Skin: Negative for rash. Neurological: Negative for focal weakness and seizures. Endo/Heme/Allergies: Negative for polydipsia. Psychiatric/Behavioral: Negative for hallucinations. Vitals see chart PHYSICAL EXAMINATION GENERAL: The patient is alert and oriented*3 HEENT: Nonicteric sclerae, non traumatic HEART: Regular rate and rhythm with no murmurs LUNGS: Clear to auscultation bilaterally ABDOMEN: No acute issues, non tender GENITAL, RECTAL: deferred SKIN: No rash NEUROLOGIC: NFND EXTREMITIES extremity wounds 10/2024, bka ASSESSMENT CARDIOMYOPATHY, EXACERBATION OF CHF EF of 30-35%, 10/2024 Was on Entresto spironolactone at home ANEMIA post op jehovas witness CORONARY DISEASE Status post bypass, 2022 MITRAL REGURGITATION, PULMONARY HYPERTENSION Severe MR previously evaluated for clipping in [facility] past HYPONATREMIA fluid restriction 12/2024 LOWER EXTREMITY WOUNDS s/p amputation 11/2024 Severe PVD, total occlusion of the below knee vessels with reconstitution of the AT/PT 11/2024 Nonhealing With associated cellulitis Arterial duplex with evidence of decreased flow ACUTE KIDNEY INJURY history of HYPERTENSION, DIABETES Uncontrolled diabetes with A1c greater than 10, 11/26/2024 CORE MEASURES Pending OTHER MEDICAL PROBLEMS Reviewed PLAN 01/16/25 Resting comfortably, not in any acute distress, diuresis has been held, possibly related to hyponatremia, does have lower extremity edema, will consider compression. On spironolactone, may consider adding alternative agents if needed as well. Previous echo with ejection fraction of 30 to 35%. Seen and examined 01/16/2025 at around 2030 01/17/2025 Sodium is improving, however, she is currently not on any diuresis. At some point, this will need to be reconsidered. Hyponatremia may have other etiologies that other than volume. Defer further evaluation to primary team. Seen and examined 01/17/2025 around 9 PM. ATTESTATION I was involved substantially in the care of this patient Number and complexity of problems addressed:1 acute illness with systemic features Amount and or complexity of data Review of prior external note(s) from each unique source: 2+ Ordering of each unique test : 0 Review of the result(s) of each unique test: 2+ Assessment requiring an independent historian(s): No Independent interpretation of test performed by another MD/QHCP/appropriate source (not separately reported) : No Discussion of management or test interpretation with external MD/QHCP/appropriate source (not separately reported) : No Risk status (cardiac, billing related):Moderate Vitals/Labs Vital Signs Date Time Temp Pulse Resp B/P (MAP) Pulse Ox O2 Delivery O2 Flow Rate FiO2 01/17/25 20:00 98.1 83 17 136/59 97 Room Air 01/17/25 19:23 21 01/17/25 17:00 0 Laboratory Tests 01/17/25 03:58 01/17/25 07:43 Medications Current Medications Bumetanide 1 mg ONCE ONCE IVP Last administered on 01/16/25at 07:48; Start 01/16/25 at 08:00; Stop 01/16/25 at 08:01; Status DC Albuterol Sulfate 2.5MG ONCE ONCE IH Last administered on 01/16/25at 10:03; Start 01/16/25 at 09:30; Stop 01/16/25 at 09:31; Status DC Famotidine 20 mg QODAY IV Last administered on 01/17/25at 09:36; Start 01/17/25 at 09:00; Stop 02/16/25 at 08:59 Guaifenesin/ Dextromethorphan 5 ml Q6H PRN PO; Start 01/16/25 at 10:30; Stop 02/15/25 at 10:29 Albuterol Sulfate 1.25 mg [id number] PRN IH Last administered on 01/17/25at 19:21; Start 01/16/25 at 10:30; Stop 02/15/25 at 10:29 Bumetanide 1 mg Q12H IVP Last administered on 01/16/25at 17:07; Start 01/16/25 at 17:00; Stop 01/17/25 at 09:18; Status DC Sacubitril/ Valsartan 1 each BID PO Last administered on 01/17/25at 21:52; Start 01/16/25 at 21:00; Stop 02/15/25 at 20:59 Spironolactone 12.5 mg BID PO Last administered on 01/17/25at 21:53; Start 01/16/25 at 21:00; Stop 02/15/25 at 20:59 Lorazepam 0.5 mg ONCE ONCE PO Last administered on 01/16/25at 11:58; Start 01/16/25 at 12:00; Stop 01/16/25 at 12:01; Status DC Sodium Chloride 4 ml STK-MED ONCE IH Last administered on 01/16/25at 14:32; Start 01/16/25 at 14:13; Stop 01/16/25 at 14:13; Status DC Leptospermum Honey 1 appl AD TP; Start 01/16/25 at 16:00; Stop 01/16/25 at 15:35; Status DC Sodium Chloride 1,000 mg BID PO Last administered on 01/17/25at 21:52; Start 01/16/25 at 21:00; Stop 02/15/25 at 20:59 Sodium Chloride 4 ml STK-MED ONCE IH Last administered on 01/16/25at 19:20; Start 01/16/25 at 18:15; Stop 01/16/25 at 18:16; Status DC Sodium Chloride 4 ml STK-MED ONCE IH; Start 01/16/25 at 22:52; Stop 01/16/25 at 22:53; Status DC Sodium Chloride 4 ml STK-MED ONCE IH Last administered on 01/16/25at 23:24; Start 01/16/25 at 23:14; Stop 01/16/25 at 23:14; Status DC Potassium Chloride 100 ml @ 100 mls/hr AD PRN IV; Start 01/17/25 at 00:00; Stop 02/16/25 at 00:00 Potassium Chloride 20 meq AD PRN PO Last administered on 01/17/25at 02:47; Start 01/17/25 at 00:00; Stop 02/16/25 at 00:00 Potassium Chloride 20 meq AD PRN PO; Start 01/17/25 at 00:00; Stop 02/16/25 at 00:00 Hydralazine HCl 5 mg Q6H PRN IV; Start 01/17/25 at 10:00; Stop 02/16/25 at 09:59 Magnesium Sulfate 50 ml @ 0 mls/hr PROTOCOL IV Last administered on 01/17/25at 09:53; Start 01/17/25 at 10:00; Stop 02/16/25 at 09:59 Guaifenesin 400 mg Q6H6 PRN PO Last administered on 01/17/25at 22:04; Start 01/17/25 at 11:00; Stop 02/16/25 at 10:59 Pharmacy Profile Note 1 each ONCE MISC; Start 01/17/25 at 12:00; Stop 01/17/25 at 11:59; Status DC Leptospermum Honey 1 APPLICATION DAILY TP Last administered on 01/17/25at 13:28; Start 01/17/25 at 13:00; Stop 02/16/25 at 12:59 Leptospermum Honey 1 APPLICATION AD PRN TP; Start 01/17/25 at 13:00; Stop 01/17/25 at 12:52; Status DC Iron Sucrose 300 mg Q24H IVP; Start 01/17/25 at 13:30; Stop 01/17/25 at 13:14; Status DC Iron Sucrose 300 mg/Sodium Chloride 250 ml @ 83 mls/hr Q24H IV Last administered on 01/17/25at 15:49; Start 01/17/25 at 14:00; Stop 01/19/25 at 17:01 Nystatin apply to buttocks/rectum BID TP Last administered on 01/17/25at 22:05; Start 01/17/25 at 21:00; Stop 02/16/25 at 20:59 Wound Care/ Dressing Products apply to buttocks/rectum BID TP Last administered on 01/17/25at 22:05; Start 01/17/25 at 21:00; Stop 02/16/25 at 20:59 Pharmacy Profile Note 1 each AD MISC; Start 01/17/25 at 17:00; Stop 01/17/25 at 16:58; Status DC LENA HERMAN MD Jan 17, 2025 22:20
[2025-01-18] VITALS (12 sets, daily range): BP systolic 145–158; BP diastolic 65–86; PULSE 78–91; RESP 16–20; TEMP 97.7–98.2; O2SAT 96–100
[2025-01-18 05:48] LABS: HEMATOCRIT 30.1 % (36-48); MEAN CORPUSCULAR HEMOGLOBIN 29.8 pg (27.0-33.0); MEAN CORPUSCULAR HGB CONC 32.2 g/dL (32.0-36.0); MEAN CORPUSCULAR VOLUME 92.3 fL (79-99); RED BLOOD CELL COUNT(AUTO) 3.26 MIL/uL (4.00-5.50); RED CELL DISTRIBUTION WIDTH 15.7 % (11.0-15.5); WHITE BLOOD COUNT (AUTO) 5.8 K/uL (4.8-10.8)
[2025-01-18 06:09] LABS: ALBUMIN 2.8 g/dL (3.5-5.0); BILIRUBIN,TOTAL 1.1 mg/dL (0.2-1.0); CREATININE 1.1 mg/dL (0.5-1.0); MAGNESIUM 2.1 mg/dL (1.80-2.40); POTASSIUM 4.2 mmol/L (3.5-5.1); TOTAL PROTEIN, SERUM 6.1 g/dL (6.0-8.3)
--- NOTE | 2025-01-18 10:00 | PN ---
[facility] PROGRESS NOTE Date of Service: Jan 18, 2025 Time of Service: 09:57 SUBJECTIVE: 69-year-old female with a past medical history of heart failure with the EF of 30-35 % moderate mitral regurgitation, severe tricuspid regurgitation, pulmonary hypertension, CKD stage 3, diabetes mellitus type 2 recent right BKA who presented to the hospital January 16, 2025 secondary to shortness a breath and swelling in the left lower extremity. Patient was previously admitted to [facility] secondary to infec blaze diabetic foot ulcer. She was evaluated by Podiatry. Orthopedic surgery was consulted and underwent right BKA during hospitalization Patient stated she has been feeling short of breath and has a productive cough. Denied any fever, chills, chest pain abdominal pain, nausea, vomiting, denied any changes in urination. She takes Lasix at home. She stated she has had previous history of hyponatremia secondary to Lasix. She sees outpatient. She had followed up with orthopedic surgery post discharge. She was recently discharged from rehab. She was going to follow up with wound care as outpatient. Labs in the ED were notable for white count of 7.0, hemoglobin was 10.1, platelet count was low at 75k, sodium was 119, potassium was 3.9, chloride was 84, creatinine was 1.3, BNP was elevated at 2400 Chest x-ray done in the very through PACU pulmonary infiltrate seen. X-ray of the left toe no acute displaced fracture or dislocation, degenerative changes seen. Venous Doppler no evidence of DVT. 01/17 patient admitted to the PCU. BP 160/73, heart rate of 85, afebrile, saturating normal on room air. CBC with a hemoglobin 10.1, hematocrit 30.8, WBC 7.0, platelet count of 75. CMP with sodium 123, potassium 4.3, BUN of 32, creatinine 1.0, magnesium of 1.7. D-dimer elevated at 1709, serology test to include influenza, SARS antigen and group A strep negative. Follow repeat CBC today, check iron level, stool occult blood, if positive we will request GI consultation, (unfortunately the patient is a Jehovah Witness) we will give 2 g of magnesium sulfate. We will attempt to do CT PE protocol versus V/Q scan if the patient agrees. Add hydralazine 5 mg IV every 6 hours as needed for SBP greater than 160, continue Aldactone 12.5 mg p.o. b.i.d., Entresto one tablet p.o. b.i.d.. Nephrology consultation requested, we will follow input and recommendation. Wound care consultation requested, follow input and recommendation, the patient noted also to have thrombocytopenia, Hematology consultation requested, we will follow input and recommendations. During my visit today patient comfortably in bed, alert oriented x3, cooperating well, denies chest pain, no shortness a breath, no nausea, no vomiting, the patient noted to have right BKA, wound looks clean, wound care is on the case per my discussion with the RN. We will downgraded the patient to the medical floor. 01/18 patient has been downgraded from the PCU to the medical floor, comfortable in bed, alert oriented x3. hemodynamically stable, afebrile, hemoglobin 9.7, hematocrit 30.1, platelet count of 88. Sodium level slowly improving. Patient with recent right BKA, admitted with shortness a breath and left lower extremity swelling, elevated D-dimer 1709. Doppler negative for DVT, we will order CT PE protocol, (patient in agreement) continue wound care. Patient is a Jehovah Witness, continue iron IV, folic acid and B12, oncology input noted and appreciated, the patient could benefit from Procrit if hemoglobin below 10. REVIEW OF SYSTEMS CONSTITUTIONAL: Denies fevers, chills, or night sweats. No unintentional weight loss reported. NEUROLOGICAL: Denies headache, amaurosis fugax, motor weakness, sensory deficit, vertigo/spinning sensation, gait abnormalities, or tremors. ENT: No hearing loss, otalgia, otorrhea, rhinitis, rhinorrhea, hoarseness, or sore throat. CARDIOVASCULAR: Denies any exertional angina, dyspnea on exertion, orthopnea, paroxysmal nocturnal dyspnea, palpitations, life-threatening arrhythmias, claudication. PULMONARY: Positive for cough, sputum production, shortness a breath. Denied any hemoptysis GASTROINTESTINAL: Denies any type of dysphagia to either liquids or solids. Denies nausea, vomiting, pyrosis, early satiety, abdominal pain, diarrhea, constipation, or changes in stool consistency or caliber. Denies coffee-ground emesis, hematemesis, hematochezia, or melanotic stools. GENITOURINARY: Denies frequency, urgency, nocturia, hematuria or incontinence (Storage/Irritative symptoms.) Low urinary stream, straining to void, urinary intermittency or hesitancy, splitting of the voiding stream, terminal dribbling. ENDOCRINOLOGIC: Denies polyuria, polydipsia, polyphagia or heat/cold intolerances. HEMATOLOGIC: Denies thrombophilia/previous clots, or coagulopathy/bleeding disorders. ONCOLOGIC: Denies personal history of malignancy. DERMATOLOGIC: Denies rashes or pruritus. PSYCHIATRIC: Denies any suicidal or homicidal ideation. Denies hallucinations. PHYSICAL EXAM GENERAL APPEARANCE: The patient is awake, alert, and oriented, in no acute cardiopulmonary distress. NEUROLOGICAL: Cranial nerves II-XII grossly intact. Motor is 5/5 in bilateral upper and lower extremities proximal to distal. No sensory deficits. HEENT: Face is symmetric. Pupils are equal and reactive. Extraocular movements are intact. NECK: Supple. No JVD. No thyromegaly. No submental, submandibular, pre- /postauricular, occipital or supraclavicular lymphadenopathy. CHEST: Normal chest expansion. No Telemetry. LUNGS: Absence of any rales, rhonchi or any wheezing. CARDIOVASCULAR: Regular. S1 and S2 normal. No appreciable rubs, murmurs or gallops. ABDOMEN: Soft, nontender, and nondistended. There is no rebound, voluntary guarding, or rigidity. : Deferred. No Patricia. EXTREMITIES: 3+ pitting edema in the left lower extremity. She has bruising noted in the 4th and 5th digit of the left foot. Right foot with BKA. She has some jimenez discoloration on the stump site. SKIN: Betty's bruising noted in the left thigh and left calf area. Vital Signs (last 8hr) Date Time Temp Pulse Resp B/P (MAP) Pulse Ox O2 Delivery O2 Flow Rate FiO2 01/18/25 08:49 97.7 86 20 152/78 97 01/18/25 07:04 84 18 01/18/25 07:04 84 20 N/A Room Air 21 01/18/25 03:54 97.9 83 16 146/65 99 Room Air LABS: Laboratory: Test 01/18/25 05:36 01/18/25 05:34 01/17/25 07:43 01/17/25 03:58 Range/Units Whole Blood Glucose 99 70-110 MG/DL White Blood Count 5.8 4.8-10.8 K/uL Red Blood Count 3.26 L 4.00-5.50 MIL/uL Hemoglobin 9.7 L 12.0-16.0 g/dL Hematocrit 30.1 L 36-48 % Mean Corpuscular Volume 92.3 79-99 fL Mean Corpuscular Hemoglobin 29.8 27.0-33.0 pg Mean Corpuscular Hemoglobin Concent 32.2 32.0-36.0 g/dL Red Cell Distribution Width 15.7 H 11.0-15.5 % Platelet Count 88 L 130-400 K/uL Mean Platelet Volume 10.7 H 7.5-10.5 fL Nucleated Red Blood Cells 0.0 0.0-0.19 % Sodium Level 128 L 136-145 mmol/L Potassium Level 4.2 3.5-5.1 mmol/L Chloride Level 91 L 101-111 mmol/L Carbon Dioxide Level 31 21-32 mmol/L Blood Urea Nitrogen 25 H 7-18 mg/dL Creatinine 1.1 H 0.5-1.0 mg/dL Glomerular Filtration Rate Calc 54 >90 mL/min Random Glucose 103 70-105 mg/dL Total Calcium 8.4 L 8.5-10.1 mg/dL Magnesium Level 2.10 1.80-2.40 mg/dL Total Bilirubin 1.1 H 0.2-1.0 mg/dL Aspartate Amino Transf (AST/SGOT) 18 10-37 U/L Alanine Aminotransferase (ALT/SGPT) 21 12-78 U/L Alkaline Phosphatase 131 50-136 U/L Total Protein 6.1 6.0-8.3 g/dL Albumin 2.8 L 3.5-5.0 g/dL Ferritin 769 H 15-150 ng/mL Serum Osmolality 253 L 278-305 mOsm/kg Uric Acid 6.0 2.6-7.2 mg/dL Phosphorus Level 2.7 2.5-4.9 mg/dL Thyroid Stimulating Hormone (TSH) 5.83 H 0.36-3.74 uIU/mL Test 01/17/25 03:35 01/17/25 02:30 01/16/25 16:30 01/16/25 16:18 Range/Units Iron Level 15 #L 50-170 mcg/dL Total Iron Binding Capacity 197 L 250-450 mcg/dL Percent Iron Saturation 7.6 L 22-44 % Urine Osmolality 260 50-1200 mOsm/kg Urine Random Creatinine 6.37 L 30-135 mg/dL Urine Random Sodium 69 40-220 mmol/l Urine Random Potassium 12 L 25-125 mmol/L Urine Random Chloride 82 L 110-250 mmol/L Influenza Type A Antigen Negative For Type A NEGATIVE Influenza Type B Antigen Negative For Type B NEGATIVE Group A Streptococcus Rapid negative NEGATIVE D-Dimer Quantitative (PE/DVT) 1709 *H 0-500 ng/mL Current Medications Medications (Trade) Dose Ordered Sig/Maci Route PRN Reason Start Time Stop Time Status Last Admin Dose Admin Albuterol Sulfate (Proventil 0.042% 1.25mg/ 3ml) 1.25 mg [id number] PRN IH sob/wheezing 01/16/25 10:30 02/15/25 10:29 01/18/25 07:02 1.25 MG Bumetanide (Bumex 1mg Vial) 1 mg Q12H IVP 01/16/25 17:00 01/17/25 09:18 DC 01/16/25 17:07 1 MG Famotidine (Pepcid 20mg Vial) 20 mg QODAY IV 01/17/25 09:00 02/16/25 08:59 01/17/25 09:36 20 MG Guaifenesin (RobiTUSSin SUGAR-FREE 100 MG/ 5 ML UDCUP) 400 mg Q6H6 PRN PO COUGH 01/17/25 11:00 02/16/25 10:59 01/17/25 22:04 400 MG Guaifenesin/ Dextromethorphan (RobiTUSSin DM 200/20MG 10ML) 5 ml Q6H PRN PO COUGH 01/16/25 10:30 02/15/25 10:29 Hydralazine HCl (APRESOLine 20MG INJ) 5 mg Q6H PRN IV ADMINISTER FOR SBP > 160 01/17/25 10:00 02/16/25 09:59 Iron Sucrose (VenoFER) 300 mg Q24H IVP 01/17/25 13:30 01/17/25 13:14 DC Iron Sucrose 300 mg/Sodium Chloride 250 ml @ 83 mls/hr Q24H IV 01/17/25 14:00 01/19/25 17:01 01/17/25 15:49 83 MLS/HR Leptospermum Honey (BetterCloudhoney) 1 APPLICATION AD PRN TP OTHER [SEE ORDER COMMENTS] 01/17/25 13:00 01/17/25 12:52 DC Leptospermum Honey (BetterCloudhoney) 1 APPLICATION DAILY TP 01/17/25 13:00 02/16/25 12:59 01/17/25 13:28 1 APPL Leptospermum Honey (JumpSoft) 1 appl AD TP 01/16/25 16:00 01/16/25 15:35 DC Magnesium Sulfate 50 ml @ 0 mls/hr PROTOCOL IV 01/17/25 10:00 02/16/25 09:59 01/17/25 09:53 25 MLS/HR Nystatin (NystOP 15 GM POWDER) apply to buttocks/rectum BID TP 01/17/25 21:00 02/16/25 20:59 01/17/25 22:05 1 APPL Pharmacy Profile Note (Pharmacy Communication) 1 each AD MISC 01/17/25 17:00 01/17/25 16:58 DC Pharmacy Profile Note (Pharmacy Communication) 1 each ONCE MISC 01/17/25 12:00 01/17/25 11:59 DC Potassium Chloride 100 ml @ 100 mls/hr AD PRN IV POTASSIUM PROTOCOL 01/17/25 00:00 02/16/25 00:00 Potassium Chloride (K-Dur/Klor-Con 20meq) 20 meq AD PRN PO POTASSIUM PROTOCOL 01/17/25 00:00 02/16/25 00:00 Potassium Chloride (KCl 10% Elixir 20meq/15ml) 20 meq AD PRN PO POTASSIUM PROTOCOL 01/17/25 00:00 02/16/25 00:00 01/17/25 02:47 20 MEQ Sacubitril/ Valsartan (Entresto 24 Mg-26 Mg Tablet) 1 each BID PO 01/16/25 21:00 02/15/25 20:59 01/17/25 21:52 1 EACH Sodium Chloride (Sodium Chloride) 1,000 mg BID PO 01/16/25 21:00 02/15/25 20:59 01/17/25 21:52 1,000 MG Spironolactone (Aldactone 25mg) 12.5 mg BID PO 01/16/25 21:00 02/15/25 20:59 01/17/25 21:53 12.5 MG Wound Care/ Dressing Products (Venelex Ointment) apply to buttocks/rectum BID TP 01/17/25 21:00 02/16/25 20:59 01/17/25 22:05 1 GM DIAGNOSTICS / RADIOLOGY: [ ] ASSESSMENT: Acute on chronic CHF exacerbation with EF of 30-35% Left lower extremity edema Shortness of breaths likely in setting of CHF exacerbation Severe hyponatremia asymptomatic Right BKA History of PVD Hypertension Hyperlipidemia Restorationism Thrombocytopenia Diabetes mellitus type 2 CKD stage 3 PLAN: patient has been downgraded from the PCU to the medical floor, comfortable in bed, alert oriented x3. hemodynamically stable, afebrile, hemoglobin 9.7, hematocrit 30.1, platelet count of 88. Sodium level slowly improving. Patient with recent right BKA, admitted with shortness a breath and left lower extremity swelling, elevated D-dimer 1709. Doppler negative for DVT, we will order CT PE protocol, (patient in agreement) continue wound care. Patient is a Jehovah Witness, continue iron IV, folic acid and B12, oncology input noted and appreciated, the patient could benefit from Procrit if hemoglobin below 10. NEURO: Minimize central acting medications as possible. Fall Precautions. Well lighted room through the day and minimize interruptions through the night to prevent acute delirium. PULMONARY: Supplemental 02 as needed BiPAP as necessary, for respiratory distress Titrate Fio2 to keep Spo2 > or = 90% DuoNebs and CPT as needed IS hourly while awake for pulmonary hygiene prn Out of bed to chair as tolerated Maintain aspiration precautions at all times CARDIOVASCULAR: Follow hemodynamics. Vital signs per facility protocol GI & NUTRITION: Continue nutritional support Aspirations precautions Prokinetic agents and laxatives as needed KIDNEYS & ELECTROLYTES: Strict monitoring of intake and output Daily weights Avoid nephrotoxic agents Monitor electrolytes and replace as needed Goal urine output of 30mL/hr or 0.5mL/kg/hr Medications to be dosed according to renal function. Avoid contrast if possible ENDOCRINE: Maintain blood glucose between 100-180 at all times. Insulin sliding scale for blood glucose management Hypoglycemia and hyperglycemia protocol in place INFECTIOUS DISEASE: Trend temperature, WBC and procalcitonin level Follow cultures, deescalate antibiotics as soon as possible. Panculture if new onset fever HEMATOLOGY & COAGULATION: Monitor H&H. Keep Hgb > 7 Transfuse 1 unit of PRBC for Hgb < 7 Transfuse 1 pack of platelets of platelets < 20, 000 Watch for any signs and symptoms of bleeding SKIN: Pressure ulcer prevention per facility protocol Specialty mattress as needed ORTHO/REHAB Continue PT/OT PRN: MEDICATIONS Tylenol 650 mg po every 4 hrs for fever zofran 4 mg IV every 6 hrs for n/v Hydralazine 5 mg IV every 4 hrs systolic pressure > 160 bowel regiment: lactulose 20 gm PO BID PRN constipation Supportive measures: Continue GI and DVT prophylaxis Disposition: Pending improvement in clinical condition All questions answered time spent: > 35 min ALEJO JONES MD Jan 18, 2025 10:00
--- NOTE | 2025-01-18 11:49 | PN ---
NEPHROLOGY PROGRESS NOTE Date/Time Patient Seen: Jan 18, 2025 SUBJECTIVE: This is a 69-year-old female with underlying history of severe cardiomyopathy with LVEF of 30-35%, moderate mitral regurgitation, severe tricuspid regurgitation, pulmonary hypertension, CKD stage 3, poorly controlled type 2 uzma betes mellitus, hypertension She presented to the ER with complains of shortness a breath and swelling in the left lower extremity She continues on fluid restriction and sodium chloride tablets We are consulted for hyponatremia. Sodium level is improving, 128 mmol/L Continues on sodium chloride and 1.2 L fluid restriction She continues to to be followed by wound care and cardiology Renal function is stable. Iron panel was noted, continues on IV iron She was seen in the medical floor, in no acute distress No family at the bedside Prognosis remains guarded REVIEW OF SYSTEMS: GENERAL: Positive for generalized weakness NEUROLOGIC: Negative for any blurry vision, blind spots, double vision, facial asymmetry, dysphagia, dysarthria, hemiparesis, hemisensory deficits, vertigo, ataxia. HEENT: Negative for any head trauma, neck trauma, neck stiffness, photophobia, phonophobia, sinusitis, rhinitis. CARDIAC: Negative for any chest pain, dyspnea on exertion, paroxysmal nocturnal dyspnea, peripheral edema. PULMONARY: Negative for any shortness of breath, wheezing, COPD, or TB exposure. GASTROINTESTINAL: Negative for any abdominal pain, nausea, vomiting, bright red blood per rectum, melena. GENITOURINARY: Negative for any dysuria, hematuria, incontinence. INTEGUMENTARY: Negative for any rashes, cuts, insect bites. RHEUMATOLOGIC: Negative for any joint pains, photosensitive rashes, history of vasculitis or kidney problems. HEMATOLOGIC: Negative for any abnormal bruising, frequent infections or bleeding. Vital Signs (last 8hr) Date Time Temp Pulse Resp B/P (MAP) Pulse Ox O2 Delivery O2 Flow Rate FiO2 01/18/25 11:36 78 18 01/18/25 11:35 78 18 N/A Room Air 01/18/25 09:00 Room Air* 0 01/18/25 08:49 97.7 86 20 152/78 97 01/18/25 07:04 84 18 01/18/25 07:04 84 20 N/A Room Air 01/18/25 03:54 97.9 83 16 146/65 99 Room Air PHYSICAL EXAM: GENERAL: Alert and oriented x 3. No acute distress. Well-nourished. EYES: EOMI. Anicteric. HENT: Moist mucous membranes. No scleral icterus. No cervical lymphadenopathy. LUNGS: Clear to auscultation bilaterally. No accessory muscle use. CARDIOVASCULAR: Regular rate and rhythm. No murmur. No JVD. ABDOMEN: Soft, non-tender and non-distended. No palpable masses. EXTREMITIES: No edema. Non-tender. SKIN: No rashes or lesions. Warm. NEUROLOGIC: No focal neurological deficits. CN II-XII grossly intact, but not individually tested. PSYCHIATRIC: Cooperative. Appropriate mood and affect. Current Medications Medications (Trade) Dose Ordered Sig/Maci Route PRN Reason Start Time Stop Time Status Last Admin Dose Admin Albuterol Sulfate (Proventil 0.042% 1.25mg/ 3ml) 1.25 mg [id number] PRN IH sob/wheezing 01/16/25 10:30 02/15/25 10:29 01/17/25 06:27 1.25 MG Bumetanide (Bumex 1mg Vial) 1 mg Q12H IVP 01/16/25 17:00 01/17/25 09:18 DC 01/16/25 17:07 1 MG Famotidine (Pepcid 20mg Vial) 20 mg QODAY IV 01/17/25 09:00 02/16/25 08:59 01/17/25 09:36 20 MG Guaifenesin (RobiTUSSin SUGAR-FREE 100 MG/ 5 ML UDCUP) 400 mg Q6H6 PRN PO COUGH 01/17/25 11:00 02/16/25 10:59 UNV Guaifenesin/ Dextromethorphan (RobiTUSSin DM 200/20MG 10ML) 5 ml Q6H PRN PO COUGH 01/16/25 10:30 02/15/25 10:29 Hydralazine HCl (APRESOLine 20MG INJ) 5 mg Q6H PRN IV ADMINISTER FOR SBP > 160 01/17/25 10:00 02/16/25 09:59 Leptospermum Honey ([employer] Micro[employer]honey) 1 appl AD TP 01/16/25 16:00 01/16/25 15:35 DC Magnesium Sulfate 50 ml @ 0 mls/hr PROTOCOL IV 01/17/25 10:00 02/16/25 09:59 01/17/25 09:53 25 MLS/HR Potassium Chloride 100 ml @ 100 mls/hr AD PRN IV POTASSIUM PROTOCOL 01/17/25 00:00 02/16/25 00:00 Potassium Chloride (K-Dur/Klor-Con 20meq) 20 meq AD PRN PO POTASSIUM PROTOCOL 01/17/25 00:00 02/16/25 00:00 Potassium Chloride (KCl 10% Elixir 20meq/15ml) 20 meq AD PRN PO POTASSIUM PROTOCOL 01/17/25 00:00 02/16/25 00:00 01/17/25 02:47 20 MEQ Sacubitril/ Valsartan (Entresto 24 Mg-26 Mg Tablet) 1 each BID PO 01/16/25 21:00 02/15/25 20:59 01/17/25 09:36 1 EACH Sodium Chloride (Sodium Chloride) 1,000 mg BID PO 01/16/25 21:00 02/15/25 20:59 01/17/25 09:36 1,000 MG Spironolactone (Aldactone 25mg) 12.5 mg BID PO 01/16/25 21:00 02/15/25 20:59 01/17/25 09:36 12.5 MG LABORATORY: [ ] Hematology Labs: Test 01/18/25 05:34 Range/Units White Blood Count 5.8 4.8-10.8 K/uL Red Blood Count 3.26 L 4.00-5.50 MIL/uL Hemoglobin 9.7 L 12.0-16.0 g/dL Hematocrit 30.1 L 36-48 % Mean Corpuscular Volume 92.3 79-99 fL Mean Corpuscular Hemoglobin 29.8 27.0-33.0 pg Mean Corpuscular Hemoglobin Concent 32.2 32.0-36.0 g/dL Red Cell Distribution Width 15.7 H 11.0-15.5 % Platelet Count 88 L 130-400 K/uL Mean Platelet Volume 10.7 H 7.5-10.5 fL Nucleated Red Blood Cells 0.0 0.0-0.19 % Chemistry Labs: Test 01/18/25 05:36 01/18/25 05:34 01/17/25 07:43 01/17/25 03:58 Range/Units Whole Blood Glucose 99 70-110 MG/DL Sodium Level 128 L 136-145 mmol/L Potassium Level 4.2 3.5-5.1 mmol/L Chloride Level 91 L 101-111 mmol/L Carbon Dioxide Level 31 21-32 mmol/L Blood Urea Nitrogen 25 H 7-18 mg/dL Creatinine 1.1 H 0.5-1.0 mg/dL Glomerular Filtration Rate Calc 54 >90 mL/min Random Glucose 103 70-105 mg/dL Total Calcium 8.4 L 8.5-10.1 mg/dL Magnesium Level 2.10 1.80-2.40 mg/dL Total Bilirubin 1.1 H 0.2-1.0 mg/dL Aspartate Amino Transf (AST/SGOT) 18 10-37 U/L Alanine Aminotransferase (ALT/SGPT) 21 12-78 U/L Alkaline Phosphatase 131 50-136 U/L Total Protein 6.1 6.0-8.3 g/dL Albumin 2.8 L 3.5-5.0 g/dL Ferritin 769 H 15-150 ng/mL Serum Osmolality 253 L 278-305 mOsm/kg Uric Acid 6.0 2.6-7.2 mg/dL Phosphorus Level 2.7 2.5-4.9 mg/dL Thyroid Stimulating Hormone (TSH) 5.83 H 0.36-3.74 uIU/mL Test 01/17/25 03:35 Range/Units Iron Level 15 #L 50-170 mcg/dL Total Iron Binding Capacity 197 L 250-450 mcg/dL Percent Iron Saturation 7.6 L 22-44 % Coagulation Labs: Test 01/16/25 16:18 Range/Units D-Dimer Quantitative (PE/DVT) 1709 *H 0-500 ng/mL DIAGNOSTICS / RADIOLOGY: REASON: left leg ORDERING PHYSICIAN: JOSÉ GUAMAN DO PROCEDURE: VENOUS UNI - US VENOUS DOPPLER UNILATERAL US VENOUS DOPPLER UNILATERAL HISTORY: Edema COMPARISON: 11/26/2024 TECHNIQUE: Left lower extremity venous Doppler ultrasound study was performed. FINDINGS: The left common femoral, femoral, popliteal, and posterior tibial veins are visualized. Normal flow with augmentation and compressibilities are demonstrated. Left greater saphenous vein is patent. IMPRESSION: 1. No evidence of deep venous thrombosis is seen. DICTATED BY: NILSA MONTAÑO MD DATE: 01/16/25 1149 REASON: pain injury ORDERING PHYSICIAN: WORTH,JOSÉ E DO PROCEDURE: TOES LT - TOE(S) 2+VWS LT TOE(S) 2+VWS LT HISTORY: Pain COMPARISON: None TECHNIQUE: 3 images of left fourth and fifth toes were obtained. FINDINGS: There is no acute displaced fracture or dislocation. Degenerative changes are seen. IMPRESSION: 1. Findings as described above. DICTATED BY: NILSA MONTAÑO MD DATE: 01/16/25 1153 REASON: PHLEM/ COUGH ORDERING PHYSICIAN: JOSÉ GUAMAN DO PROCEDURE: CXR1VW - CHEST 1VW CHEST 1VW HISTORY: Cough COMPARISON: 11/26/2024 FINDINGS: A frontal projection of the chest was obtained. No acute pulmonary infiltrates is seen. Poststernotomy changes are seen. The heart is enlarged. Degenerative changes of the thoracolumbar spine are present. Degenerative changes are seen. Aortic calcifications are seen. IMPRESSION: 1. No acute pulmonary infiltrate is seen. DICTATED BY: NILSA MONTAÑO MD DATE: 01/16/25 1154 ASSESSMENT: Hyponatremia Shortness of breath Fluid overload CKD III Anemia Acute on chronic CHF exacerbation with EF of 30-35% Left lower extremity edema Significant PAD of the lower extremities S/P right BKA Poorly controlled type 2 diabetes mellitus Hypertension Hyperlipidemia Underlying history of coronary artery disease with prior history of multivessel CABG in 2022 History of [employer] declining blood product transfusion, Noncompliance PLAN: Labs, diagnostic, radiologic exams reviewed and interpreted by myself and supervising physician. We have reviewed external records in detail She was counseled on the importance of fluid restriction Continue with sodium chloride tablets 1.5 L fluid restriction is recommended Require close monitoring of renal function and electrolytes Order CBC, CMP, and electrolytes in am Continue with antibiotics Renal diabetic diet BiPAP as necessary, for respiratory distress Monitor blood pressure adjust medication doses as needed Avoid hypotensive episodes May use Dilaudid 0.5 mg IV every 6 hours as needed for severe pain Monitor blood sugars Strict intake, output, and daily weight should be monitored Please renally adjust medications Avoid nephrotoxic and nonsteroidal drugs Avoid contrast if possible Will continue to monitor renal function, anemia, electrolytes Treatment plan discussed with patient Questions were answered We have discussed with the other team physicians in detail about the care plan We will continue to monitor the patient closely TONEY RAMEY Jan 18, 2025 11:49
--- NOTE | 2025-01-18 13:26 | NUR ---
PATIENT REFUSED CT WITH CONTRAST OF CHEST ASKED FOR AN ALTERNATIVE SCAN, SPOKE WITH MD AND NOW EXAM WAS CHANGED TO A VQ SCAN.
--- NOTE | 2025-01-18 13:27 | PN ---
Patient is a 69-year-old female with a past medical history of heart failure with the EF of 30-35 %l moderate mitral regurgitation, severe tricuspid regurgitation, pulmonary hypertension, CKD stage 3, diabetes mellitus type from the my hypertension going to history of recent right BKA who presented to the hospitalist secondary to shortness a breath and swelling in the left lower extremity. Patient was previously to [facility] secondary to infected diabetic foot ulcer. The she was evaluated by ID ,podiatry. Orthopedic surgery was consulted, and the patient underwent a right BKA during hospitalization. Patient reports taking Lasix at home, and per nurse patient reports taking extra doses of her Lasix due to her left lower leg edema. She states she has had previous history of hyponatremia secondary to Lasix. The patient follows with master control engineer Dr. Gipson. Patient with anemia and thrombocytopenia. Patient with iron deficiency anemia with iron level is very low. This patient will need EGD and colonoscopy to be done. Patient is Jainism which the patient does not accept any blood patient to receive 1 unit of packed red blood cell after type cross and match. Premedication with dexamethasone 10 mg and Benadryl 25 mg PHYSICAL EXAM VITALS: GENERAL: ALERT, ORIENTED, APPEARS-NO ACUTE DISTRESS EYES: SCLERAE ANICTERIC, PUPILS EQUAL/REACTIVE, EXTRAOCULAR MUSCLES INTCT ENT/NECK: ORAL MUCOSA W/O LESIONS, OROPHARYNX IS CLEAR, NECK SUPPLE W/O MASSES RESPIRATORY: LUNGS CLEAR-AUSC/PERCUS CARDIOVASCULAR: REGULAR RATE, REGULAR RHYTHM GASTROINTESTINAL: ABDOMEN IS SOFT; No TENDER, No DISTENDED, No HEPATOSPLENOMEGALY; BOWEL SOUNDS PRESENT; No PALPABLE MASSES HEMATOLOGY/LYMPHATIC: No CERVICAL ADENOPATHY, No SUPRACLAVICULR ADENOPATHY, No AXILLARY ADENOPATHY, No INGUINAL ADENOPATHY MUSCULOSKELETAL: EDEMA SKIN/BREASTS: No MASSES, No RASH, No HIVES NEUROLOGICAL: GROSSLY INTACT PSYCHOLOGICAL: MINI MENTAL ASSMT INTACT Assessment 1. Thrombocytopenia 2. Anemia 3. Hyponatremia 4. Congestive heart failure 5. Peripheral vascular disease status post right below-knee amputation 6. Jainism 7. Diabetes mellitus Plan 1. This patient to continue on IV iron while in the hospital. This patient will need oral iron to be given every other day in the outpatient setting for at least 6 months. 2. There was hypersegmented neutrophils. This patient to be started on folic acid 1 mg p.o. daily and vitamin B12 1000 mcg p.o. daily. 3. This patient is Jainism. This patient does not accept blood products. 4. This patient continued to be with hyponatremia. Continue care as per primary. 5. If this patient discharged to follow-up with me in the next 4 weeks 6. This patient could benefit from Procrit especially if hemoglobin is below 10g/dl Vitals/Labs Vital Signs Date Time Temp Pulse Resp B/P (MAP) Pulse Ox O2 Delivery O2 Flow Rate FiO2 01/18/25 11:36 78 18 01/18/25 11:35 N/A Room Air 21 01/18/25 09:00 0 01/18/25 08:49 97.7 152/78 97 Laboratory Tests 01/18/25 05:34 Medications Current Medications Bumetanide 1 mg ONCE ONCE IVP Last administered on 01/16/25at 07:48; Start 01/16/25 at 08:00; Stop 01/16/25 at 08:01; Status DC Albuterol Sulfate 2.5MG ONCE ONCE IH Last administered on 01/16/25at 10:03; Start 01/16/25 at 09:30; Stop 01/16/25 at 09:31; Status DC Famotidine 20 mg QODAY IV Last administered on 01/17/25at 09:36; Start 01/17/25 at 09:00; Stop 02/16/25 at 08:59 Guaifenesin/ Dextromethorphan 5 ml Q6H PRN PO; Start 01/16/25 at 10:30; Stop 02/15/25 at 10:29 Albuterol Sulfate 1.25 mg [id number] PRN IH Last administered on 01/18/25at 11:34; Start 01/16/25 at 10:30; Stop 02/15/25 at 10:29 Bumetanide 1 mg Q12H IVP Last administered on 01/16/25at 17:07; Start 01/16/25 at 17:00; Stop 01/17/25 at 09:18; Status DC Sacubitril/ Valsartan 1 each BID PO Last administered on 01/18/25at 10:19; Start 01/16/25 at 21:00; Stop 02/15/25 at 20:59 Spironolactone 12.5 mg BID PO Last administered on 01/18/25at 10:19; Start 01/16/25 at 21:00; Stop 02/15/25 at 20:59 Lorazepam 0.5 mg ONCE ONCE PO Last administered on 01/16/25at 11:58; Start 01/16/25 at 12:00; Stop 01/16/25 at 12:01; Status DC Sodium Chloride 4 ml STK-MED ONCE IH Last administered on 01/16/25at 14:32; Start 01/16/25 at 14:13; Stop 01/16/25 at 14:13; Status DC Leptospermum Honey 1 appl AD TP; Start 01/16/25 at 16:00; Stop 01/16/25 at 15:35; Status DC Sodium Chloride 1,000 mg BID PO Last administered on 01/18/25at 10:19; Start 01/16/25 at 21:00; Stop 02/15/25 at 20:59 Sodium Chloride 4 ml STK-MED ONCE IH Last administered on 01/16/25at 19:20; Start 01/16/25 at 18:15; Stop 01/16/25 at 18:16; Status DC Sodium Chloride 4 ml STK-MED ONCE IH; Start 01/16/25 at 22:52; Stop 01/16/25 at 22:53; Status DC Sodium Chloride 4 ml STK-MED ONCE IH Last administered on 01/16/25at 23:24; Start 01/16/25 at 23:14; Stop 01/16/25 at 23:14; Status DC Potassium Chloride 100 ml @ 100 mls/hr AD PRN IV; Start 01/17/25 at 00:00; Stop 02/16/25 at 00:00 Potassium Chloride 20 meq AD PRN PO Last administered on 01/17/25at 02:47; Start 01/17/25 at 00:00; Stop 02/16/25 at 00:00 Potassium Chloride 20 meq AD PRN PO; Start 01/17/25 at 00:00; Stop 02/16/25 at 00:00 Hydralazine HCl 5 mg Q6H PRN IV; Start 01/17/25 at 10:00; Stop 02/16/25 at 09:59 Magnesium Sulfate 50 ml @ 0 mls/hr PROTOCOL IV Last administered on 01/17/25at 09:53; Start 01/17/25 at 10:00; Stop 02/16/25 at 09:59 Guaifenesin 400 mg Q6H6 PRN PO Last administered on 01/18/25at 10:28; Start 01/17/25 at 11:00; Stop 02/16/25 at 10:59 Pharmacy Profile Note 1 each ONCE MISC; Start 01/17/25 at 12:00; Stop 01/17/25 at 11:59; Status DC Leptospermum Honey 1 APPLICATION DAILY TP Last administered on 01/18/25at 10:20; Start 01/17/25 at 13:00; Stop 02/16/25 at 12:59 Leptospermum Honey 1 APPLICATION AD PRN TP; Start 01/17/25 at 13:00; Stop 01/17/25 at 12:52; Status DC Iron Sucrose 300 mg Q24H IVP; Start 01/17/25 at 13:30; Stop 01/17/25 at 13:14; Status DC Iron Sucrose 300 mg/Sodium Chloride 250 ml @ 83 mls/hr Q24H IV Last administered on 01/17/25at 15:49; Start 01/17/25 at 14:00; Stop 01/19/25 at 17:01 Nystatin apply to buttocks/rectum BID TP Last administered on 01/17/25at 22:05; Start 01/17/25 at 21:00; Stop 02/16/25 at 20:59 Wound Care/ Dressing Products apply to buttocks/rectum BID TP Last administered on 01/18/25at 10:20; Start 01/17/25 at 21:00; Stop 02/16/25 at 20:59 Pharmacy Profile Note 1 each AD MISC; Start 01/17/25 at 17:00; Stop 01/17/25 at 16:58; Status DC KASIE MENDIETA MD Jan 18, 2025 13:27
--- NOTE | 2025-01-18 13:27 | NUR ---
MD ORDERED VQ SCAN AT THIS TIME AND CANCELLED CT AT PATIENTS REQUEST.
--- NOTE | 2025-01-18 15:00 | NUR ---
[facility] Follow-up: Patient re-assessed by wound healing team. Assessment and recommendations provided to primary nurse. Education provided. Wound care done. Addendum: 01/19/25 at 0905 by LYNN TIDWELL RN RN/ Amended: Links added.
--- NOTE | 2025-01-18 15:45 | NUR ---
PATIENT FEELS SHE CANNOT TOLERATE VQ SCAN FOR ONE HOUR, PATIENT HAS COUGH AT PRESENT NOTED PER KATHRINE GRIGSBY.PATIENT ALSO ANXIOUS ABOUT VQ SCAN M WILL NOTIFY .
--- NOTE | 2025-01-18 16:00 | NUR ---
DR JONES RETURNED CALL AND NOTIFIED OF PATIENT NOT WANTING VQ SCAN AT THIS TIME AND ANXIETY NEW ORDERERS RECEIVED.
[2025-01-18] MEDS: hydrOXYzine 10 MG TABLET PO PRN (17:10)
--- NOTE | 2025-01-18 22:03 | PN ---
CHF, severe MR HPI/story at presentation: This is a pleasant 69-year-old female with past medical history as replacement complains of shortness of breath and lower extremity MAC, was diagnosed with CHF exacerbation, currently on diuresis. Also has issues with hyponatremia that is being addressed. Cardiology was consulted for further evaluation management. Patient is sleepy most of the history was obtained from the chart and nursing staff. Subjective: 01/16/25 resting 01/17/2025 no complaints Past medical history: See below Allergies, Meds See chart Review of systems Review of Systems Constitutional: Negative for chills and fever. HENT: Negative for ear discharge and ear pain. Eyes: Negative for photophobia and discharge. Respiratory: Negative for cough, sputum production and stridor. Cardiovascular: Negative for chest pain and palpitations. Gastrointestinal: Negative for diarrhea and vomiting. Genitourinary: Negative for frequency. Musculoskeletal: Negative for myalgias. Skin: Negative for rash. Neurological: Negative for focal weakness and seizures. Endo/Heme/Allergies: Negative for polydipsia. Psychiatric/Behavioral: Negative for hallucinations. Vitals see chart PHYSICAL EXAMINATION GENERAL: The patient is alert and oriented*3 HEENT: Nonicteric sclerae, non traumatic HEART: Regular rate and rhythm with no murmurs LUNGS: Clear to auscultation bilaterally ABDOMEN: No acute issues, non tender GENITAL, RECTAL: deferred SKIN: No rash NEUROLOGIC: NFND EXTREMITIES extremity wounds 10/2024, bka ASSESSMENT CARDIOMYOPATHY, EXACERBATION OF CHF EF of 30-35%, 10/2024 Was on Entresto spironolactone at home ANEMIA post op jehovas witness CORONARY DISEASE Status post bypass, 2022 MITRAL REGURGITATION, PULMONARY HYPERTENSION Severe MR previously evaluated for clipping in [facility] past HYPONATREMIA fluid restriction 12/2024 LOWER EXTREMITY WOUNDS s/p amputation 11/2024 Severe PVD, total occlusion of the below knee vessels with reconstitution of the AT/PT 11/2024 Nonhealing With associated cellulitis Arterial duplex with evidence of decreased flow ACUTE KIDNEY INJURY history of HYPERTENSION, DIABETES Uncontrolled diabetes with A1c greater than 10, 11/26/2024 CORE MEASURES Pending OTHER MEDICAL PROBLEMS Reviewed PLAN 01/16/25 Resting comfortably, not in any acute distress, diuresis has been held, possibly related to hyponatremia, does have lower extremity edema, will consider compression. On spironolactone, may consider adding alternative agents if needed as well. Previous echo with ejection fraction of 30 to 35%. Seen and examined 01/16/2025 at around 2030 01/17/2025 Sodium is improving, however, she is currently not on any diuresis. At some point, this will need to be reconsidered. Hyponatremia may have other etiologies that other than volume. Defer further evaluation to primary team. Seen and examined 01/17/2025 around 9 PM. 01/18/2025 sodium progressively improving, lower extremity manage better, currently not on diuresis, will continue to hold. Seen and examined 01/18/2025 around 2100. ATTESTATION I was involved substantially in the care of this patient Number and complexity of problems addressed:1 acute illness with systemic features Amount and or complexity of data Review of prior external note(s) from each unique source: 2+ Ordering of each unique test : 0 Review of the result(s) of each unique test: 2+ Assessment requiring an independent historian(s): No Independent interpretation of test performed by another MD/QHCP/appropriate source (not separately reported) : No Discussion of management or test interpretation with external MD/QHCP/appropriate source (not separately reported) : No Risk status (cardiac, billing related):Moderate Vitals/Labs Vital Signs Date Time Temp Pulse Resp B/P (MAP) Pulse Ox O2 Delivery O2 Flow Rate FiO2 01/18/25 21:17 98.1 89 19 158/86 95 Room Air 01/18/25 18:24 21 01/18/25 09:00 0 Laboratory Tests 01/18/25 05:34 Medications Current Medications Bumetanide 1 mg ONCE ONCE IVP Last administered on 01/16/25at 07:48; Start 01/16/25 at 08:00; Stop 01/16/25 at 08:01; Status DC Albuterol Sulfate 2.5MG ONCE ONCE IH Last administered on 01/16/25at 10:03; Start 01/16/25 at 09:30; Stop 01/16/25 at 09:31; Status DC Famotidine 20 mg QODAY IV Last administered on 01/17/25at 09:36; Start 01/17/25 at 09:00; Stop 02/16/25 at 08:59 Guaifenesin/ Dextromethorphan 5 ml Q6H PRN PO; Start 01/16/25 at 10:30; Stop 02/15/25 at 10:29 Albuterol Sulfate 1.25 mg [id number] PRN IH Last administered on 01/18/25at 18:23; Start 01/16/25 at 10:30; Stop 02/15/25 at 10:29 Bumetanide 1 mg Q12H IVP Last administered on 01/16/25at 17:07; Start 01/16/25 at 17:00; Stop 01/17/25 at 09:18; Status DC Sacubitril/ Valsartan 1 each BID PO Last administered on 01/18/25at 20:27; Start 01/16/25 at 21:00; Stop 02/15/25 at 20:59 Spironolactone 12.5 mg BID PO Last administered on 01/18/25at 20:27; Start 01/16/25 at 21:00; Stop 02/15/25 at 20:59 Lorazepam 0.5 mg ONCE ONCE PO Last administered on 01/16/25at 11:58; Start 01/16/25 at 12:00; Stop 01/16/25 at 12:01; Status DC Sodium Chloride 4 ml STK-MED ONCE IH Last administered on 01/16/25at 14:32; Start 01/16/25 at 14:13; Stop 01/16/25 at 14:13; Status DC Leptospermum Honey 1 appl AD TP; Start 01/16/25 at 16:00; Stop 01/16/25 at 15:35; Status DC Sodium Chloride 1,000 mg BID PO Last administered on 01/18/25at 20:27; Start 01/16/25 at 21:00; Stop 02/15/25 at 20:59 Sodium Chloride 4 ml STK-MED ONCE IH Last administered on 01/16/25at 19:20; Start 01/16/25 at 18:15; Stop 01/16/25 at 18:16; Status DC Sodium Chloride 4 ml STK-MED ONCE IH; Start 01/16/25 at 22:52; Stop 01/16/25 at 22:53; Status DC Sodium Chloride 4 ml STK-MED ONCE IH Last administered on 01/16/25at 23:24; Start 01/16/25 at 23:14; Stop 01/16/25 at 23:14; Status DC Potassium Chloride 100 ml @ 100 mls/hr AD PRN IV; Start 01/17/25 at 00:00; Stop 02/16/25 at 00:00 Potassium Chloride 20 meq AD PRN PO Last administered on 01/17/25at 02:47; Start 01/17/25 at 00:00; Stop 02/16/25 at 00:00 Potassium Chloride 20 meq AD PRN PO; Start 01/17/25 at 00:00; Stop 02/16/25 at 00:00 Hydralazine HCl 5 mg Q6H PRN IV; Start 01/17/25 at 10:00; Stop 02/16/25 at 09:59 Magnesium Sulfate 50 ml @ 0 mls/hr PROTOCOL IV Last administered on 01/17/25at 09:53; Start 01/17/25 at 10:00; Stop 02/16/25 at 09:59 Guaifenesin 400 mg Q6H6 PRN PO Last administered on 01/18/25at 10:28; Start 01/17/25 at 11:00; Stop 02/16/25 at 10:59 Pharmacy Profile Note 1 each ONCE MISC; Start 01/17/25 at 12:00; Stop 01/17/25 at 11:59; Status DC Leptospermum Honey 1 APPLICATION DAILY TP Last administered on 01/18/25at 10:20; Start 01/17/25 at 13:00; Stop 02/16/25 at 12:59 Leptospermum Honey 1 APPLICATION AD PRN TP; Start 01/17/25 at 13:00; Stop 01/17/25 at 12:52; Status DC Iron Sucrose 300 mg Q24H IVP; Start 01/17/25 at 13:30; Stop 01/17/25 at 13:14; Status DC Iron Sucrose 300 mg/Sodium Chloride 250 ml @ 83 mls/hr Q24H IV Last administered on 01/18/25at 13:35; Start 01/17/25 at 14:00; Stop 01/19/25 at 17:01 Nystatin apply to buttocks/rectum BID TP Last administered on 01/18/25at 20:28; Start 01/17/25 at 21:00; Stop 02/16/25 at 20:59 Wound Care/ Dressing Products apply to buttocks/rectum BID TP Last administered on 01/18/25at 20:28; Start 01/17/25 at 21:00; Stop 02/16/25 at 20:59 Pharmacy Profile Note 1 each AD MISC; Start 01/17/25 at 17:00; Stop 01/17/25 at 16:58; Status DC Hydroxyzine HCl 10 mg QID PRN PO Last administered on 01/18/25at 17:10; Start 01/18/25 at 16:30; Stop 02/17/25 at 16:29 LENA HERMAN MD Jan 18, 2025 22:03
[2025-01-19] VITALS (8 sets, daily range): BP systolic 144–152; BP diastolic 68–76; PULSE 75–98; RESP 18; TEMP 98.5–98.7; O2SAT 95–96
[2025-01-19 05:37] LABS: HEMATOCRIT 28.4 % (36-48); MEAN CORPUSCULAR HEMOGLOBIN 30.1 pg (27.0-33.0); MEAN CORPUSCULAR HGB CONC 33.5 g/dL (32.0-36.0); MEAN CORPUSCULAR VOLUME 89.9 fL (79-99); RED BLOOD CELL COUNT(AUTO) 3.16 MIL/uL (4.00-5.50); RED CELL DISTRIBUTION WIDTH 15.9 % (11.0-15.5)
[2025-01-19 05:54] LABS: ALBUMIN 2.7 g/dL (3.5-5.0); CREATININE 1.2 mg/dL (0.5-1.0); POTASSIUM 3.6 mmol/L (3.5-5.1); TOTAL PROTEIN, SERUM 6.1 g/dL (6.0-8.3)
--- NOTE | 2025-01-19 11:56 | PN ---
[facility] PROGRESS NOTE Date Patient Seen: Jan 19, 2025 Time of Visit: 11:56 Supervising Physician: [ ] Primary Care Physician: [ KATY GARCIA MD ] Outpatient Specialists: [ ] Inpatient Consults: [MIGUEL ANGEL CARVAJAL, DR ALVAREZ, ALESIA MENDOZA, DR MENDIETA, DR BATSHEVA PAREDES MD ] PROBLEM LIST: Acute on chronic CHF exacerbation with EF of 30-35%POA Left lower extremity edema , Neg for DVT Severe hyponatremia asymptomatic, resolving Right BKA non healing surgical site History of PVD Hypertension Hyperlipidemia Religion Acute Thrombocytopenia Diabetes mellitus type 2 CKD stage 3 This Is A 69-Year-Old Female With A Past Medical History Of Systolic And Diastolic Heart Failure With Moderate mitral regurgitation, severe tricuspid regurgitation, pulmonary hypertension, CKD stage 3, type 2 diabetes mellitus, recent right BKA which has nonhealing wound, dressing to site. Patient presented today for infected diabetic ulcer to the right BKA and left 4th and 5th toes dark purple. Patient also reports progressive dyspnea for the last week with a nonproductive cough. She presented with no fever denies chills, denies chest pain, denies palpitations, denies nausea or vomiting. INTERVAL HISTORY: Pt is awake alert and oriented x 3.Per RN overnight pt was refusing tele monitors, She has a non productive cough at this time. In NAD. She is hemodynamically stable heart rate in the 80s respiratory rate of 16 saturating 100% on room air and afebrile. On laboratory H&H stable /29.1 platelet count of 102 K improved. Chemistries shows sodium of 123 potassium of 4.3 chloride of 87 carbon dioxide 28 BUN of 32 creatinine 1.0 GFR 61. Magnesium 1.70 covered per protocol TSH of 5.83 albumin of 2.8 total bili 1.1. Patient denies any chest pain palpitations or shortness for breath at this time. She reports feeling much better. [age]y at the bedside. Went over her recent laboratory results and feeling her sodium. Answered all her questions. From pulmonary standpoint patient is stable at this time. We will sign off. Patient will need to follow-up with pulmonary service of choice 2 weeks postdischarge. Please reach to us should the need arise. On behalf of [facility] we are thankful for your team to let us participate in the care of this patient. We will be available if assistance in pulmonary critical care needed. f REVIEW OF SYSTEMS: General: No malaise or fever. Neurological: No fainting episodes or seizures. HEENT: No nasal congestion or nasal secretion. Respiratory: + non productive cough Cardiac: No chest pain or palpitations. Gastrointestinal: No vomiting or diarrhea. Genitourinary: No dysuria hematuria. Skin: No rashes or lesions. Hematological: No bruises or bleeding. Musculoskeletal: No joint pains or arthralgias. Psychiatric: No depression or panic attacks. PHYSICAL EXAM: GENERAL: Alert and oriented x 2-3. HEENT: EOMI, Sclera non icteric, moist mucosa NECK: Supple, no JVD, trachea midline LUNGS: Rhonchi to bilateral lobes, no wheezing. HEART: Regular rate and rhythm. Normal S1 and S2, without murmurs ABD: Abdomen soft, nontender. Bowel sounds present EXT: No clubbing cyanosis or edema NEURO: Alert and oriented to person, follows commands Vital Signs (last 8hr) Date Time Temp Pulse Resp B/P (MAP) Pulse Ox O2 Delivery O2 Flow Rate FiO2 01/19/25 11:32 84 18 01/19/25 08:32 95 Room Air* 0 21 01/19/25 08:09 98.8 75 18 144/70 95 01/19/25 06:54 89 18 N/A Room Air 21 01/19/25 06:49 86 18 01/19/25 05:07 98.4 98 18 146/76 96 Room Air LABS: Hematology Labs: Test 01/19/25 05:12 Range/Units White Blood Count 9.0 # 4.8-10.8 K/uL Red Blood Count 3.16 L 4.00-5.50 MIL/uL Hemoglobin 9.5 L 12.0-16.0 g/dL Hematocrit 28.4 L 36-48 % Mean Corpuscular Volume 89.9 79-99 fL Mean Corpuscular Hemoglobin 30.1 27.0-33.0 pg Mean Corpuscular Hemoglobin Concent 33.5 32.0-36.0 g/dL Red Cell Distribution Width 15.9 H 11.0-15.5 % Platelet Count 106 L 130-400 K/uL Mean Platelet Volume 11.2 H 7.5-10.5 fL Nucleated Red Blood Cells 0.0 0.0-0.19 % Chemistry Labs: Test 01/19/25 11:52 01/19/25 05:12 Range/Units Whole Blood Glucose 200 H 70-110 MG/DL Sodium Level 126 L 136-145 mmol/L Potassium Level 3.6 3.5-5.1 mmol/L Chloride Level 91 L 101-111 mmol/L Carbon Dioxide Level 26 21-32 mmol/L Blood Urea Nitrogen 23 H 7-18 mg/dL Creatinine 1.2 H 0.5-1.0 mg/dL Glomerular Filtration Rate Calc 49 >90 mL/min Random Glucose 136 H 70-105 mg/dL Total Calcium 8.1 L 8.5-10.1 mg/dL Magnesium Level 2.00 1.80-2.40 mg/dL Total Bilirubin 1.0 0.2-1.0 mg/dL Aspartate Amino Transf (AST/SGOT) 18 10-37 U/L Alanine Aminotransferase (ALT/SGPT) 20 12-78 U/L Alkaline Phosphatase 135 50-136 U/L Total Protein 6.1 6.0-8.3 g/dL Albumin 2.7 L 3.5-5.0 g/dL DIAGNOSTICS / RADIOLOGY RESULTS: [ ] PLAN downgrade to medical surgical continue Sodium chloride1 g tab p.o. b.i.d. Serum Osmo Urine Osmo D-dimer Fluid restriction of 1.5 L today Daily weight Sodium checks q.6 hours Avoid quick over-correction greater than 8 mEq per L in the next 24 hours Continue diuretics per primary team NEURO: Minimize central acting medications as possible. Maintain fall precautions, adequate lighting during the day PULMONARY: Supplemental 02 as needed. Maintain aspiration precautions at all times CARDIOVASCULAR: Follow hemodynamics. Vital signs per facility protocol GI & NUTRITION: Continue with nutritional support. Continue stool softeners and laxatives as needed. KIDNEYS & ELECTROLYTES: Strict monitoring of intake, output and overall fluid balance. Avoid nephrotoxic medications to the extent possible. Medications to be dosed according to renal function. Monitor electrolytes and replace as needed ENDOCRINE: Maintain blood glucose between 100-180 at all times. Hypoglycemia protocol in place INFECTIOUS DISEASE: Trend temperature, WBC and procalcitonin level Follow cultures, deescalate antibiotics as soon as possible. Panculture if new onset fever ONCOLOGY/HEMATOLOGY/COAGULATION: Monitor for s/s of bleeding Monitor hemoglobin, coagulation studies as needed SKIN: Pressure ulcer prevention per facility protocol Specialty mattress ORTHO/REHAB: Continue PT/OT Prophylaxis: Continue GI and DVT prophylaxis Code Status: Full Resuscitation Disposition: TBD Other: JM CORDERO Jan 19, 2025 11:56
--- NOTE | 2025-01-19 13:40 | PN ---
Patient is a 69-year-old female with a past medical history of heart failure with the EF of 30-35 %l moderate mitral regurgitation, severe tricuspid regurgitation, pulmonary hypertension, CKD stage 3, diabetes mellitus type from the my hypertension going to history of recent right BKA who presented to the hospitalist secondary to shortness a breath and swelling in the left lower extremity. Patient was previously to [facility] secondary to infected diabetic foot ulcer. The she was evaluated by ID ,podiatry. Orthopedic surgery was consulted, and the patient underwent a right BKA during hospitalization. Patient reports taking Lasix at home, and per nurse patient reports taking extra doses of her Lasix due to her left lower leg edema. She states she has had previous history of hyponatremia secondary to Lasix. The patient follows with media job titles Dr. Gipson. Patient with anemia and thrombocytopenia. Patient with iron deficiency anemia with iron level is very low. This patient will need EGD and colonoscopy to be done. Patient is Confucianist which the patient does not accept any blood patient to receive 1 unit of packed red blood cell after type cross and match. Premedication with dexamethasone 10 mg and Benadryl 25 mg PHYSICAL EXAM VITALS: GENERAL: ALERT, ORIENTED, APPEARS-NO ACUTE DISTRESS EYES: SCLERAE ANICTERIC, PUPILS EQUAL/REACTIVE, EXTRAOCULAR MUSCLES INTCT ENT/NECK: ORAL MUCOSA W/O LESIONS, OROPHARYNX IS CLEAR, NECK SUPPLE W/O MASSES RESPIRATORY: LUNGS CLEAR-AUSC/PERCUS CARDIOVASCULAR: REGULAR RATE, REGULAR RHYTHM GASTROINTESTINAL: ABDOMEN IS SOFT; No TENDER, No DISTENDED, No HEPATOSPLENOMEGALY; BOWEL SOUNDS PRESENT; No PALPABLE MASSES HEMATOLOGY/LYMPHATIC: No CERVICAL ADENOPATHY, No SUPRACLAVICULR ADENOPATHY, No AXILLARY ADENOPATHY, No INGUINAL ADENOPATHY MUSCULOSKELETAL: EDEMA SKIN/BREASTS: No MASSES, No RASH, No HIVES NEUROLOGICAL: GROSSLY INTACT PSYCHOLOGICAL: MINI MENTAL ASSMT INTACT Assessment 1. Thrombocytopenia. Platelet count 106K 2. Anemia. Hemoglobin level 9.5 g/deciliter 3. Hyponatremia 4. Congestive heart failure 5. Peripheral vascular disease status post right below-knee amputation 6. Confucianist 7. Diabetes mellitus Plan 1. This patient to continue on IV iron while in the hospital. This patient will need oral iron to be given every other day in the outpatient setting for at least 6 months. 2. There was hypersegmented neutrophils. This patient to be started on folic acid 1 mg p.o. daily and vitamin B12 1000 mcg p.o. daily. 3. This patient is Confucianist. This patient does not accept blood products. 4. This patient continued to be with hyponatremia. Continue care as per primary. 5. If this patient discharged to follow-up with me in the next 4 weeks 6. This patient could benefit from Procrit especially if hemoglobin is below 10g/dl Vitals/Labs Vital Signs Date Time Temp Pulse Resp B/P (MAP) Pulse Ox O2 Delivery O2 Flow Rate FiO2 01/19/25 12:22 98.4 81 18 152/68 98 01/19/25 08:32 Room Air* 0 21 Laboratory Tests 01/19/25 05:12 Medications Current Medications Bumetanide 1 mg ONCE ONCE IVP Last administered on 01/16/25at 07:48; Start 01/16/25 at 08:00; Stop 01/16/25 at 08:01; Status DC Albuterol Sulfate 2.5MG ONCE ONCE IH Last administered on 01/16/25at 10:03; Start 01/16/25 at 09:30; Stop 01/16/25 at 09:31; Status DC Famotidine 20 mg QODAY IV Last administered on 01/19/25at 08:26; Start 01/17/25 at 09:00; Stop 02/16/25 at 08:59 Guaifenesin/ Dextromethorphan 5 ml Q6H PRN PO; Start 01/16/25 at 10:30; Stop 02/15/25 at 10:29 Albuterol Sulfate 1.25 mg [id number] PRN IH Last administered on 01/19/25at 11:31; Start 01/16/25 at 10:30; Stop 02/15/25 at 10:29 Bumetanide 1 mg Q12H IVP Last administered on 01/16/25at 17:07; Start 01/16/25 at 17:00; Stop 01/17/25 at 09:18; Status DC Sacubitril/ Valsartan 1 each BID PO Last administered on 01/19/25at 08:26; Start 01/16/25 at 21:00; Stop 02/15/25 at 20:59 Spironolactone 12.5 mg BID PO Last administered on 01/19/25at 08:26; Start 01/16/25 at 21:00; Stop 02/15/25 at 20:59 Lorazepam 0.5 mg ONCE ONCE PO Last administered on 01/16/25at 11:58; Start 01/16/25 at 12:00; Stop 01/16/25 at 12:01; Status DC Sodium Chloride 4 ml STK-MED ONCE IH Last administered on 01/16/25at 14:32; Start 01/16/25 at 14:13; Stop 01/16/25 at 14:13; Status DC Leptospermum Honey 1 appl AD TP; Start 01/16/25 at 16:00; Stop 01/16/25 at 15:35; Status DC Sodium Chloride 1,000 mg BID PO Last administered on 01/19/25at 08:26; Start 01/16/25 at 21:00; Stop 02/15/25 at 20:59 Sodium Chloride 4 ml STK-MED ONCE IH Last administered on 01/16/25at 19:20; Start 01/16/25 at 18:15; Stop 01/16/25 at 18:16; Status DC Sodium Chloride 4 ml STK-MED ONCE IH; Start 01/16/25 at 22:52; Stop 01/16/25 at 22:53; Status DC Sodium Chloride 4 ml STK-MED ONCE IH Last administered on 01/16/25at 23:24; Start 01/16/25 at 23:14; Stop 01/16/25 at 23:14; Status DC Potassium Chloride 100 ml @ 100 mls/hr AD PRN IV; Start 01/17/25 at 00:00; Stop 02/16/25 at 00:00 Potassium Chloride 20 meq AD PRN PO Last administered on 01/17/25at 02:47; Start 01/17/25 at 00:00; Stop 02/16/25 at 00:00 Potassium Chloride 20 meq AD PRN PO; Start 01/17/25 at 00:00; Stop 02/16/25 at 00:00 Hydralazine HCl 5 mg Q6H PRN IV; Start 01/17/25 at 10:00; Stop 02/16/25 at 09:59 Magnesium Sulfate 50 ml @ 0 mls/hr PROTOCOL IV Last administered on 01/17/25at 09:53; Start 01/17/25 at 10:00; Stop 02/16/25 at 09:59 Guaifenesin 400 mg Q6H6 PRN PO Last administered on 01/18/25at 22:36; Start 01/17/25 at 11:00; Stop 02/16/25 at 10:59 Pharmacy Profile Note 1 each ONCE MISC; Start 01/17/25 at 12:00; Stop 01/17/25 at 11:59; Status DC Leptospermum Honey 1 APPLICATION DAILY TP Last administered on 01/19/25at 08:26; Start 01/17/25 at 13:00; Stop 02/16/25 at 12:59 Leptospermum Honey 1 APPLICATION AD PRN TP; Start 01/17/25 at 13:00; Stop 01/17/25 at 12:52; Status DC Iron Sucrose 300 mg Q24H IVP; Start 01/17/25 at 13:30; Stop 01/17/25 at 13:14; Status DC Iron Sucrose 300 mg/Sodium Chloride 250 ml @ 83 mls/hr Q24H IV Last administered on 01/18/25at 13:35; Start 01/17/25 at 14:00; Stop 01/19/25 at 17:01 Nystatin apply to buttocks/rectum BID TP Last administered on 01/19/25at 08:26; Start 01/17/25 at 21:00; Stop 02/16/25 at 20:59 Wound Care/ Dressing Products apply to buttocks/rectum BID TP Last administered on 01/19/25at 08:27; Start 01/17/25 at 21:00; Stop 02/16/25 at 20:59 Pharmacy Profile Note 1 each AD MISC; Start 01/17/25 at 17:00; Stop 01/17/25 at 16:58; Status DC Hydroxyzine HCl 10 mg QID PRN PO Last administered on 01/18/25at 23:55; Start 01/18/25 at 16:30; Stop 02/17/25 at 16:29 KASIE MENDIETA MD Jan 19, 2025 13:40
--- NOTE | 2025-01-19 14:17 | NUR ---
SPOKE WITH PATIENT REGARDING VQ SCAN PROCEDURE. PATIENT STATES, "I DON'T WANT TO DO THAT PROCEDURE. I WANT TO GO HOME. CAN YOU TELL THE DOCTOR THAT I WANT TO GO HOME"? NOTIFIED DR. CUNNINGHAM OF PATIENT'S REQUEST. PER DR. CUNNINGHAM, PATIENT CAN REFUSE VQ PROCEDURE, BUT CANNOT BE SAFELY ORDERED TO DISCHARGE. PATIENT WOULD NEED TO SIGN OUT AMA PER DR. CUNNINGHAM. EXPLAINED LEAVING AGAINST MEDICAL ADVICE TO PATIENT. PER PATIENT, "I HAVE APPOINTMENTS WITH OTHER DOCTORS IN THE COMMUNITY. I WILL MANAGE MY CONDITION WITH THEM". NOTIFIED DR. CUNNINGHAM OF PATIENT'S DECISION. PATIENT SIGNED AMA FORM.
--- NOTE | 2025-01-19 15:18 | DS ---
Discharge Summary Hospital Course Summary: 69-year-old female with a past medical history of heart failure with the EF of 30-35%, moderate mitral regurgitation, severe tricuspid regurgitation, pulmonary hypertension, CKD stage 3, diabetes mellitus type from the my hypertension going to history of recent right BKA who presented to the hospitalist secondary to shortness a breath and swelling in the left lower extremity. Patient was previously to [facility] secondary to infected diabetic foot ulcer. The she was evaluated by ID ,podiatry. Orthopedic surgery was consulted and vision underwent right BKA during hospitalization. Patient states one week she has been feeling short of breath and has a productive cough. Denied any fever, chills, chest pain abdominal pain, nausea, vomiting, denied any changes in urination. She takes Lasix at home. She states she has had previous history of hyponatremia secondary to Lasix. She sees outpatient. She had followed up with orthopedic surgery post discharge. She was recently discharged from rehab. She was going to follow up with wound care as outpatient. She was admitted, cardiology was consulted and adjusted medications. Pt noted to be anemic and downtrending, FOBT was ordered, given the patient is Jehovas witness hematology was consulted as transfusion contraindication. Venous doppler was negative for DVT. V/Q scan was ordered, however patient refused the procedure. The patient also asked to be discharged however given her Hgb continued downtrending and FOBT was still pending she was advised GI bleed would need to be ruled out for a safe discharge. She decided to leave AMA . 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 FINDINGS: The left common femoral, femoral, popliteal, and posterior tibial veins are visualized. Normal flow with augmentation and compressibilities are demonstrated. Left greater saphenous vein is patent. IMPRESSION: 1. No evidence of deep venous thrombosis is seen. TOE(S) 2+VWS LT HISTORY: Pain COMPARISON: None TECHNIQUE: 3 images of left fourth and fifth toes were obtained. FINDINGS: There is no acute displaced fracture or dislocation. Degenerative changes are seen. IMPRESSION: 1. Findings as described above. CHEST 1VW HISTORY: Cough COMPARISON: 11/26/2024 FINDINGS: A frontal projection of the chest was obtained. No acute pulmonary infiltrates is seen. Poststernotomy changes are seen. The heart is enlarged. Degenerative changes of the thoracolumbar spine are present. Degenerative changes are seen. Aortic calcifications are seen. IMPRESSION: 1. No acute pulmonary infiltrate is seen. Assessment/Plan: Acute on chronic CHF exacerbation with EF of 30-35% Left lower extremity edema Shortness of breaths likely in setting of CHF exacerbation Severe hyponatremia asymptomatic Right BKA History of PVD Hypertension Hyperlipidemia Orthodox Thrombocytopenia Diabetes mellitus type 2 CKD stage 3 Discharge Instructions: Patient left AMA Home Medications: Reported Medications Carvedilol (Carvedilol) 6.25 Mg Tablet, 1 TAB PO BID for 90 Days, #60 TAB 0 Refi lls 01/17/25 Furosemide (Furosemide) 20 Mg Tablet, 1 TAB PO DAILY AT 1500 for 30 Days, #30 TAB 0 Refills DAILY AT 1500. 01/17/25 Furosemide (Furosemide) 20 Mg Tablet, 20 MG PO DAILY for 90 Days, TAB AT 0900. 11/26/24 Spironolactone (Spironolactone) 25 Mg Tablet, 12.5 MG PO BID, TAB 11/26/24 Sacubitril/Valsartan (Entresto 24 mg-26 mg Tablet) 24 Mg-26 Mg Tablet, 1 TAB PO BID 09/15/24 Metformin HCl (Metformin HCl) 500 Mg Tablet, 1 TAB PO BIDMEALS for 30 Days, #60 TAB 0 Refills 07/07/24 Dapagliflozin Propanediol (Farxiga) 5 Mg Tablet, 1 TAB PO DAILY for 30 Days, #30 TAB 0 Refills 07/07/24 Time spent arranging discharge: 31-60 minutes BLAIR CUNNINGHAM MD Jan 19, 2025 15:18
--- NOTE | 2025-01-19 15:27 | NUR ---
DISCHARGE PERIPHERAL IV DISCONTINUED AMA PAPERWORK SIGNED BY PATIENT AND IN CHART PATIENT'S ARRIVED TO UNIT AND COLLECTED PATIENT'S BELONGINGS ALL QUESTIONS ANSWERED.
--- NOTE | 2025-01-19 17:20 | PN ---
FOLLOWUP PROGRESS NOTE SUBJECTIVE: A 69-year-old female with a history of known cardiomyopathy. The patient with a history of valvular heart disease. She has a history of known chronic renal insufficiency. The patient has a history of chronic hyponatremia. She initially presented with increasing shortness of breath and swelling to the lower extremities. The patient started on the diuretics. The patient has had acute on chronic renal failure in the hospital. Creatinine has been elevated. Serum sodium has remained fairly stable and the patient is being seen as a followup visit for all of the above. REVIEW OF SYSTEMS: CONSTITUTIONAL: She is feeling weak and tired. HEENT: No change in vision. No change in hearing. CARDIOVASCULAR: There is no current chest pain or palpitations. PULMONARY: She denies any current shortness of breath. GASTROINTESTINAL: She is tolerating a diet. MUSCULOSKELETAL: Complains of weakness. OBJECTIVE: VITAL SIGNS: Blood pressure 144/70, pulse 70s, afebrile. GENERAL: She is a chronically ill female, lying in bed on the medical floor. HEENT: Head is atraumatic. Pupils are equal, roving to light. Oropharynx is without exudate. Nares are clear. NECK: There is no JVP. There is no thyromegaly, no mass. CARDIOVASCULAR: Regular. There is no S3, S4 gallop. LUNGS: Coarse with equal thoracic movement. ABDOMEN: Soft, nondistended, and nontender. EXTREMITIES: Reveal no clubbing, no cyanosis. NEUROLOGICAL: She is awake. She is alert. LABORATORY DATA: Hemoglobin 9.5, hematocrit 28. Sodium 126, BUN 23, creatinine 1.2. IMPRESSION: * Acute on chronic renal failure. * Hyponatremia. * Cardiomyopathy. * Diabetes mellitus. PLAN: The patient's creatinine has remained fairly stable. The patient remains with the hyponatremia. The patient is encouraged with her fluid restriction. The patient is quite anxious for discharge to home. Once the patient is discharged, the patient will follow up in the [facility]. TID: [id number] RECEIPT: [id number]
== END 2025-01-19 15:37 | disposition left against medical advice (07) | DRG 291 ==
LOC: EDH 07:03 → EDHIP 10:13 → 2AH 14:51 → 3BH 01-17 18:14
PROVIDERS: ADMIT Internal Medicine; ATTEND Internal Medicine
DX: I13.0 Hypertensive heart and chronic kidney disease with heart failure and stage 1 through stage 4 chronic kidney disease, or unspecified chronic kidney disease (principal); I50.43 Acute on chronic combined systolic (congestive) and diastolic (congestive) heart failure; E87.1 Hypo-osmolality and hyponatremia; L03.90 Cellulitis, unspecified; N17.9 Acute kidney failure, unspecified; I42.9 Cardiomyopathy, unspecified; E78.5 Hyperlipidemia, unspecified; D69.6 Thrombocytopenia, unspecified; E11.65 Type 2 diabetes mellitus with hyperglycemia; N18.30 Chronic kidney disease, stage 3 unspecified; I25.10 Atherosclerotic heart disease of native coronary artery without angina pectoris; D64.9 Anemia, unspecified; E11.22 Type 2 diabetes mellitus with diabetic chronic kidney disease; Z20.822 Contact with and (suspected) exposure to COVID-19; E11.51 Type 2 diabetes mellitus with diabetic peripheral angiopathy without gangrene; E11.621 Type 2 diabetes mellitus with foot ulcer; I27.20 Pulmonary hypertension, unspecified; R60.0 Localized edema; I08.1 Rheumatic disorders of both mitral and tricuspid valves; E11.622 Type 2 diabetes mellitus with other skin ulcer; T50.1X5A Adverse effect of loop [high-ceiling] diuretics, initial encounter; Z53.29 Procedure and treatment not carried out because of patient's decision for other reasons; Z82.49 Family history of ischemic heart disease and other diseases of the circulatory system; Z83.3 Family history of diabetes mellitus; Z89.511 Acquired absence of right leg below knee; Z91.199 Patient's noncompliance with other medical treatment and regimen due to unspecified reason; Z95.1 Presence of aortocoronary bypass graft; Z90.49 Acquired absence of other specified parts of digestive tract
CPT/HCPCS: 36415; 71045; 73660; 80048; 80051; 80053; 82533; 82570; 82728; 82948; 83036; 83540; 83550; 83735; 83880; 83930; 83935; 84100; 84145; 84295; 84300; 84443; 84484; 84550; 85025; 85027; 85378; 85610; 85730; 86140; 87426; 87804; 87880; 93005; 93971; 94640; 94664; 94667; 94668; 99285; G0378; J1756; J3475; J3490; J7050

== ENCOUNTER → 2025-01-25 | Outpatient (CLI) | payer MEDICARE ==
[~2025-01-25] MED LIST changes: +CARV6.25 PO; +LIDOCAINE HCL 4% LTA SOL 4 ML VIAL TP ONE
== END | disposition home or self-care (01) ==
LOC: WHH 09:39
PROVIDERS: ATTEND Family Medicine
DX: T87.81 Dehiscence of amputation stump (principal); T86.821 Skin graft (allograft) (autograft) failure; E11.622 Type 2 diabetes mellitus with other skin ulcer; L98.492 Non-pressure chronic ulcer of skin of other sites with fat layer exposed; L97.812 Non-pressure chronic ulcer of other part of right lower leg with fat layer exposed; E11.621 Type 2 diabetes mellitus with foot ulcer; L97.512 Non-pressure chronic ulcer of other part of right foot with fat layer exposed; L02.415 Cutaneous abscess of right lower limb; E11.42 Type 2 diabetes mellitus with diabetic polyneuropathy; E11.51 Type 2 diabetes mellitus with diabetic peripheral angiopathy without gangrene; E11.22 Type 2 diabetes mellitus with diabetic chronic kidney disease; I13.0 Hypertensive heart and chronic kidney disease with heart failure and stage 1 through stage 4 chronic kidney disease, or unspecified chronic kidney disease; N18.30 Chronic kidney disease, stage 3 unspecified; I50.43 Acute on chronic combined systolic (congestive) and diastolic (congestive) heart failure; E78.5 Hyperlipidemia, unspecified; I25.10 Atherosclerotic heart disease of native coronary artery without angina pectoris; Z90.49 Acquired absence of other specified parts of digestive tract; Z95.5 Presence of coronary angioplasty implant and graft; Z79.899 Other long term (current) drug therapy; Y83.5 Amputation of limb(s) as the cause of abnormal reaction of the patient, or of later complication, without mention of misadventure at the time of the procedure; Y83.8 Other surgical procedures as the cause of abnormal reaction of the patient, or of later complication, without mention of misadventure at the time of the procedure
CPT/HCPCS: 87086 ×3; 87186 ×3; 87070; G0463; A4450

== ENCOUNTER → 2025-01-30 | Outpatient (CLI) | payer MEDICARE ==
[~2025-01-30] MED LIST changes: -LIDOCAINE HCL 4% LTA SOL 4 ML VIAL TP ONE; +LIDOCAINE HCL 4% TOP SOL 50ML TP ONE
== END | disposition home or self-care (01) ==
LOC: WHH 08:53
PROVIDERS: ATTEND Family Medicine
DX: T86.821 Skin graft (allograft) (autograft) failure (principal); T87.81 Dehiscence of amputation stump; E11.622 Type 2 diabetes mellitus with other skin ulcer; L98.492 Non-pressure chronic ulcer of skin of other sites with fat layer exposed; L97.812 Non-pressure chronic ulcer of other part of right lower leg with fat layer exposed; E11.42 Type 2 diabetes mellitus with diabetic polyneuropathy; E11.51 Type 2 diabetes mellitus with diabetic peripheral angiopathy without gangrene; E11.22 Type 2 diabetes mellitus with diabetic chronic kidney disease; I13.0 Hypertensive heart and chronic kidney disease with heart failure and stage 1 through stage 4 chronic kidney disease, or unspecified chronic kidney disease; N18.30 Chronic kidney disease, stage 3 unspecified; I50.43 Acute on chronic combined systolic (congestive) and diastolic (congestive) heart failure; E78.5 Hyperlipidemia, unspecified; I25.10 Atherosclerotic heart disease of native coronary artery without angina pectoris; Z90.49 Acquired absence of other specified parts of digestive tract; Z95.5 Presence of coronary angioplasty implant and graft; Z79.899 Other long term (current) drug therapy; Y83.5 Amputation of limb(s) as the cause of abnormal reaction of the patient, or of later complication, without mention of misadventure at the time of the procedure; Y83.2 Surgical operation with anastomosis, bypass or graft as the cause of abnormal reaction of the patient, or of later complication, without mention of misadventure at the time of the procedure
CPT/HCPCS: 11042; 11045; A4450; A6260

== ENCOUNTER → 2025-02-06 | Outpatient (CLI) | payer MEDICARE ==
[~2025-02-06] MED LIST changes: +LIDOCAINE HCL 4% LTA SOL 4 ML VIAL TP ONE; -LIDOCAINE HCL 4% TOP SOL 50ML TP ONE
== END | disposition home or self-care (01) ==
LOC: WHH 08:35
PROVIDERS: ATTEND Family Medicine
DX: T86.821 Skin graft (allograft) (autograft) failure (principal); T87.89 Other complications of amputation stump; E11.622 Type 2 diabetes mellitus with other skin ulcer; L98.492 Non-pressure chronic ulcer of skin of other sites with fat layer exposed; L97.812 Non-pressure chronic ulcer of other part of right lower leg with fat layer exposed; E11.42 Type 2 diabetes mellitus with diabetic polyneuropathy; E11.51 Type 2 diabetes mellitus with diabetic peripheral angiopathy without gangrene; E11.22 Type 2 diabetes mellitus with diabetic chronic kidney disease; I13.0 Hypertensive heart and chronic kidney disease with heart failure and stage 1 through stage 4 chronic kidney disease, or unspecified chronic kidney disease; N18.30 Chronic kidney disease, stage 3 unspecified; I50.43 Acute on chronic combined systolic (congestive) and diastolic (congestive) heart failure; E78.5 Hyperlipidemia, unspecified; I25.10 Atherosclerotic heart disease of native coronary artery without angina pectoris; Z90.49 Acquired absence of other specified parts of digestive tract; Z95.5 Presence of coronary angioplasty implant and graft; Z79.899 Other long term (current) drug therapy; Y83.2 Surgical operation with anastomosis, bypass or graft as the cause of abnormal reaction of the patient, or of later complication, without mention of misadventure at the time of the procedure; Y83.5 Amputation of limb(s) as the cause of abnormal reaction of the patient, or of later complication, without mention of misadventure at the time of the procedure
CPT/HCPCS: 11042; A6250; A6197

== ENCOUNTER → 2025-02-07 | Outpatient (CLI) | payer MEDICARE ==
[~2025-02-07] MED LIST changes: -LIDOCAINE HCL 4% LTA SOL 4 ML VIAL TP ONE
== END | disposition home or self-care (01) ==
LOC: WHH 09:20
PROVIDERS: ATTEND Family Medicine
DX: T86.821 Skin graft (allograft) (autograft) failure (principal); T87.89 Other complications of amputation stump; E11.622 Type 2 diabetes mellitus with other skin ulcer; L98.492 Non-pressure chronic ulcer of skin of other sites with fat layer exposed; L97.812 Non-pressure chronic ulcer of other part of right lower leg with fat layer exposed; E11.51 Type 2 diabetes mellitus with diabetic peripheral angiopathy without gangrene; E11.42 Type 2 diabetes mellitus with diabetic polyneuropathy; E11.22 Type 2 diabetes mellitus with diabetic chronic kidney disease; I13.0 Hypertensive heart and chronic kidney disease with heart failure and stage 1 through stage 4 chronic kidney disease, or unspecified chronic kidney disease; N18.30 Chronic kidney disease, stage 3 unspecified; I50.43 Acute on chronic combined systolic (congestive) and diastolic (congestive) heart failure; E78.5 Hyperlipidemia, unspecified; I25.10 Atherosclerotic heart disease of native coronary artery without angina pectoris; Z90.49 Acquired absence of other specified parts of digestive tract; Z95.5 Presence of coronary angioplasty implant and graft; Z79.899 Other long term (current) drug therapy; Y83.2 Surgical operation with anastomosis, bypass or graft as the cause of abnormal reaction of the patient, or of later complication, without mention of misadventure at the time of the procedure; Y83.5 Amputation of limb(s) as the cause of abnormal reaction of the patient, or of later complication, without mention of misadventure at the time of the procedure
CPT/HCPCS: 82948 ×2; G0277; A6197

== ENCOUNTER → 2025-02-08 | Outpatient (CLI) | payer MEDICARE | END | disposition home or self-care (01) | LOC: WHH 09:26 | PROVIDERS: ATTEND Family Medicine | DX: T86.821 Skin graft (allograft) (autograft) failure (principal); T87.89 Other complications of amputation stump; E11.622 Type 2 diabetes mellitus with other skin ulcer; L98.492 Non-pressure chronic ulcer of skin of other sites with fat layer exposed; L97.812 Non-pressure chronic ulcer of other part of right lower leg with fat layer exposed; E11.51 Type 2 diabetes mellitus with diabetic peripheral angiopathy without gangrene; E11.42 Type 2 diabetes mellitus with diabetic polyneuropathy; E11.22 Type 2 diabetes mellitus with diabetic chronic kidney disease; I13.0 Hypertensive heart and chronic kidney disease with heart failure and stage 1 through stage 4 chronic kidney disease, or unspecified chronic kidney disease; N18.30 Chronic kidney disease, stage 3 unspecified; I50.43 Acute on chronic combined systolic (congestive) and diastolic (congestive) heart failure; E78.5 Hyperlipidemia, unspecified; I25.10 Atherosclerotic heart disease of native coronary artery without angina pectoris; Z90.49 Acquired absence of other specified parts of digestive tract; Z95.5 Presence of coronary angioplasty implant and graft; Z79.899 Other long term (current) drug therapy; Y83.2 Surgical operation with anastomosis, bypass or graft as the cause of abnormal reaction of the patient, or of later complication, without mention of misadventure at the time of the procedure; Y83.5 Amputation of limb(s) as the cause of abnormal reaction of the patient, or of later complication, without mention of misadventure at the time of the procedure | CPT/HCPCS: 82948; G0277; A6197 ==

== ENCOUNTER → 2025-02-09 | Outpatient (CLI) | payer MEDICARE | END | disposition home or self-care (01) | LOC: WHH 09:44 | PROVIDERS: ATTEND Family Medicine | DX: T86.821 Skin graft (allograft) (autograft) failure (principal); T87.81 Dehiscence of amputation stump; E11.622 Type 2 diabetes mellitus with other skin ulcer; L98.422 Non-pressure chronic ulcer of back with fat layer exposed; L97.812 Non-pressure chronic ulcer of other part of right lower leg with fat layer exposed; E11.42 Type 2 diabetes mellitus with diabetic polyneuropathy; E11.51 Type 2 diabetes mellitus with diabetic peripheral angiopathy without gangrene; E11.22 Type 2 diabetes mellitus with diabetic chronic kidney disease; I13.0 Hypertensive heart and chronic kidney disease with heart failure and stage 1 through stage 4 chronic kidney disease, or unspecified chronic kidney disease; N18.30 Chronic kidney disease, stage 3 unspecified; I50.43 Acute on chronic combined systolic (congestive) and diastolic (congestive) heart failure; E78.5 Hyperlipidemia, unspecified; I25.10 Atherosclerotic heart disease of native coronary artery without angina pectoris; Z90.49 Acquired absence of other specified parts of digestive tract; Z95.5 Presence of coronary angioplasty implant and graft; Z79.899 Other long term (current) drug therapy; Y83.5 Amputation of limb(s) as the cause of abnormal reaction of the patient, or of later complication, without mention of misadventure at the time of the procedure; Y83.2 Surgical operation with anastomosis, bypass or graft as the cause of abnormal reaction of the patient, or of later complication, without mention of misadventure at the time of the procedure | CPT/HCPCS: 82948; G0277; A6196 ==

== ENCOUNTER → 2025-02-12 | Outpatient (CLI) | payer MEDICARE | END | disposition home or self-care (01) | LOC: WHH 09:28 | PROVIDERS: ATTEND Family Medicine | DX: T86.821 Skin graft (allograft) (autograft) failure (principal); T87.89 Other complications of amputation stump; E11.622 Type 2 diabetes mellitus with other skin ulcer; L98.492 Non-pressure chronic ulcer of skin of other sites with fat layer exposed; E11.42 Type 2 diabetes mellitus with diabetic polyneuropathy; E11.51 Type 2 diabetes mellitus with diabetic peripheral angiopathy without gangrene; E11.22 Type 2 diabetes mellitus with diabetic chronic kidney disease; I13.0 Hypertensive heart and chronic kidney disease with heart failure and stage 1 through stage 4 chronic kidney disease, or unspecified chronic kidney disease; N18.30 Chronic kidney disease, stage 3 unspecified; I50.43 Acute on chronic combined systolic (congestive) and diastolic (congestive) heart failure; E78.5 Hyperlipidemia, unspecified; I25.10 Atherosclerotic heart disease of native coronary artery without angina pectoris; Z90.49 Acquired absence of other specified parts of digestive tract; Z95.5 Presence of coronary angioplasty implant and graft; Z79.899 Other long term (current) drug therapy; Y83.5 Amputation of limb(s) as the cause of abnormal reaction of the patient, or of later complication, without mention of misadventure at the time of the procedure; Y83.2 Surgical operation with anastomosis, bypass or graft as the cause of abnormal reaction of the patient, or of later complication, without mention of misadventure at the time of the procedure | CPT/HCPCS: 82948; G0277; A6197 ==

== ENCOUNTER → 2025-02-13 | Outpatient (CLI) | payer MEDICARE ==
[~2025-02-13] MED LIST changes: +LIDOCAINE HCL 4% LTA SOL 4 ML VIAL TP ONE
== END | disposition home or self-care (01) ==
LOC: WHH 09:15
PROVIDERS: ATTEND Family Medicine
DX: T86.821 Skin graft (allograft) (autograft) failure (principal); T87.89 Other complications of amputation stump; E11.622 Type 2 diabetes mellitus with other skin ulcer; L98.492 Non-pressure chronic ulcer of skin of other sites with fat layer exposed; E11.42 Type 2 diabetes mellitus with diabetic polyneuropathy; E11.51 Type 2 diabetes mellitus with diabetic peripheral angiopathy without gangrene; E11.22 Type 2 diabetes mellitus with diabetic chronic kidney disease; I13.0 Hypertensive heart and chronic kidney disease with heart failure and stage 1 through stage 4 chronic kidney disease, or unspecified chronic kidney disease; N18.30 Chronic kidney disease, stage 3 unspecified; I50.43 Acute on chronic combined systolic (congestive) and diastolic (congestive) heart failure; E78.5 Hyperlipidemia, unspecified; I25.10 Atherosclerotic heart disease of native coronary artery without angina pectoris; Z90.49 Acquired absence of other specified parts of digestive tract; Z95.5 Presence of coronary angioplasty implant and graft; Z79.899 Other long term (current) drug therapy; Y83.5 Amputation of limb(s) as the cause of abnormal reaction of the patient, or of later complication, without mention of misadventure at the time of the procedure; Y83.2 Surgical operation with anastomosis, bypass or graft as the cause of abnormal reaction of the patient, or of later complication, without mention of misadventure at the time of the procedure
CPT/HCPCS: 11042; 82948; 11045; G0277; A6250; A6197

== ENCOUNTER → 2025-02-14 | Outpatient (CLI) | payer MEDICARE ==
[~2025-02-14] MED LIST changes: -LIDOCAINE HCL 4% LTA SOL 4 ML VIAL TP ONE
== END | disposition home or self-care (01) ==
LOC: WHH 09:35
PROVIDERS: ATTEND Family Medicine
DX: T86.821 Skin graft (allograft) (autograft) failure (principal); T87.89 Other complications of amputation stump; E11.622 Type 2 diabetes mellitus with other skin ulcer; L98.492 Non-pressure chronic ulcer of skin of other sites with fat layer exposed; E11.42 Type 2 diabetes mellitus with diabetic polyneuropathy; E11.51 Type 2 diabetes mellitus with diabetic peripheral angiopathy without gangrene; E11.22 Type 2 diabetes mellitus with diabetic chronic kidney disease; I13.0 Hypertensive heart and chronic kidney disease with heart failure and stage 1 through stage 4 chronic kidney disease, or unspecified chronic kidney disease; N18.30 Chronic kidney disease, stage 3 unspecified; I50.43 Acute on chronic combined systolic (congestive) and diastolic (congestive) heart failure; E78.5 Hyperlipidemia, unspecified; I25.10 Atherosclerotic heart disease of native coronary artery without angina pectoris; Z90.49 Acquired absence of other specified parts of digestive tract; Z95.5 Presence of coronary angioplasty implant and graft; Z79.899 Other long term (current) drug therapy; Y83.5 Amputation of limb(s) as the cause of abnormal reaction of the patient, or of later complication, without mention of misadventure at the time of the procedure; Y83.2 Surgical operation with anastomosis, bypass or graft as the cause of abnormal reaction of the patient, or of later complication, without mention of misadventure at the time of the procedure
CPT/HCPCS: 82948; G0277; A6197

== ENCOUNTER → 2025-02-15 | Outpatient (CLI) | payer MEDICARE | END | disposition home or self-care (01) | LOC: WHH 09:34 | PROVIDERS: ATTEND Family Medicine | DX: T86.821 Skin graft (allograft) (autograft) failure (principal); T87.89 Other complications of amputation stump; E11.622 Type 2 diabetes mellitus with other skin ulcer; L98.492 Non-pressure chronic ulcer of skin of other sites with fat layer exposed; E11.42 Type 2 diabetes mellitus with diabetic polyneuropathy; E11.51 Type 2 diabetes mellitus with diabetic peripheral angiopathy without gangrene; E11.22 Type 2 diabetes mellitus with diabetic chronic kidney disease; I13.0 Hypertensive heart and chronic kidney disease with heart failure and stage 1 through stage 4 chronic kidney disease, or unspecified chronic kidney disease; N18.30 Chronic kidney disease, stage 3 unspecified; I50.43 Acute on chronic combined systolic (congestive) and diastolic (congestive) heart failure; E78.5 Hyperlipidemia, unspecified; I25.10 Atherosclerotic heart disease of native coronary artery without angina pectoris; Z90.49 Acquired absence of other specified parts of digestive tract; Z95.5 Presence of coronary angioplasty implant and graft; Z79.899 Other long term (current) drug therapy; Y83.5 Amputation of limb(s) as the cause of abnormal reaction of the patient, or of later complication, without mention of misadventure at the time of the procedure; Y83.2 Surgical operation with anastomosis, bypass or graft as the cause of abnormal reaction of the patient, or of later complication, without mention of misadventure at the time of the procedure | CPT/HCPCS: 82948; G0277; A6197 ==

== ENCOUNTER → 2025-02-16 | Outpatient (CLI) | payer MEDICARE | END | disposition home or self-care (01) | LOC: WHH 09:33 | PROVIDERS: ATTEND Family Medicine | DX: T86.821 Skin graft (allograft) (autograft) failure (principal); T87.89 Other complications of amputation stump; E11.622 Type 2 diabetes mellitus with other skin ulcer; L98.492 Non-pressure chronic ulcer of skin of other sites with fat layer exposed; E11.42 Type 2 diabetes mellitus with diabetic polyneuropathy; E11.51 Type 2 diabetes mellitus with diabetic peripheral angiopathy without gangrene; E11.22 Type 2 diabetes mellitus with diabetic chronic kidney disease; I13.0 Hypertensive heart and chronic kidney disease with heart failure and stage 1 through stage 4 chronic kidney disease, or unspecified chronic kidney disease; N18.30 Chronic kidney disease, stage 3 unspecified; I50.43 Acute on chronic combined systolic (congestive) and diastolic (congestive) heart failure; E78.5 Hyperlipidemia, unspecified; I25.10 Atherosclerotic heart disease of native coronary artery without angina pectoris; Z90.49 Acquired absence of other specified parts of digestive tract; Z95.5 Presence of coronary angioplasty implant and graft; Z79.899 Other long term (current) drug therapy; Y83.5 Amputation of limb(s) as the cause of abnormal reaction of the patient, or of later complication, without mention of misadventure at the time of the procedure; Y83.2 Surgical operation with anastomosis, bypass or graft as the cause of abnormal reaction of the patient, or of later complication, without mention of misadventure at the time of the procedure | CPT/HCPCS: 82948; G0277; A6197 ==

== ENCOUNTER → 2025-02-19 | Outpatient (CLI) | payer MEDICARE | END | disposition home or self-care (01) | LOC: WHH 09:35 | PROVIDERS: ATTEND Family Medicine | DX: T86.821 Skin graft (allograft) (autograft) failure (principal); T87.89 Other complications of amputation stump; E11.622 Type 2 diabetes mellitus with other skin ulcer; L98.492 Non-pressure chronic ulcer of skin of other sites with fat layer exposed; E11.42 Type 2 diabetes mellitus with diabetic polyneuropathy; E11.51 Type 2 diabetes mellitus with diabetic peripheral angiopathy without gangrene; E11.22 Type 2 diabetes mellitus with diabetic chronic kidney disease; I13.0 Hypertensive heart and chronic kidney disease with heart failure and stage 1 through stage 4 chronic kidney disease, or unspecified chronic kidney disease; N18.30 Chronic kidney disease, stage 3 unspecified; I50.43 Acute on chronic combined systolic (congestive) and diastolic (congestive) heart failure; E78.5 Hyperlipidemia, unspecified; I25.10 Atherosclerotic heart disease of native coronary artery without angina pectoris; Z90.49 Acquired absence of other specified parts of digestive tract; Z95.5 Presence of coronary angioplasty implant and graft; Z79.899 Other long term (current) drug therapy; Y83.5 Amputation of limb(s) as the cause of abnormal reaction of the patient, or of later complication, without mention of misadventure at the time of the procedure; Y83.2 Surgical operation with anastomosis, bypass or graft as the cause of abnormal reaction of the patient, or of later complication, without mention of misadventure at the time of the procedure | CPT/HCPCS: 82948; G0277; A6197 ==

== ENCOUNTER → 2025-02-20 | Outpatient (CLI) | payer MEDICARE ==
[~2025-02-20] MED LIST changes: +LIDOCAINE HCL 4% LTA SOL 4 ML VIAL TP ONE
== END | disposition home or self-care (01) ==
LOC: WHH 09:19
PROVIDERS: ATTEND Family Medicine
DX: T86.821 Skin graft (allograft) (autograft) failure (principal); T87.89 Other complications of amputation stump; E11.622 Type 2 diabetes mellitus with other skin ulcer; L98.492 Non-pressure chronic ulcer of skin of other sites with fat layer exposed; E11.51 Type 2 diabetes mellitus with diabetic peripheral angiopathy without gangrene; E11.42 Type 2 diabetes mellitus with diabetic polyneuropathy; E11.22 Type 2 diabetes mellitus with diabetic chronic kidney disease; I13.0 Hypertensive heart and chronic kidney disease with heart failure and stage 1 through stage 4 chronic kidney disease, or unspecified chronic kidney disease; N18.30 Chronic kidney disease, stage 3 unspecified; I50.43 Acute on chronic combined systolic (congestive) and diastolic (congestive) heart failure; E78.5 Hyperlipidemia, unspecified; I25.10 Atherosclerotic heart disease of native coronary artery without angina pectoris; Z90.49 Acquired absence of other specified parts of digestive tract; Z95.5 Presence of coronary angioplasty implant and graft; Z79.899 Other long term (current) drug therapy; Y83.5 Amputation of limb(s) as the cause of abnormal reaction of the patient, or of later complication, without mention of misadventure at the time of the procedure; Y83.2 Surgical operation with anastomosis, bypass or graft as the cause of abnormal reaction of the patient, or of later complication, without mention of misadventure at the time of the procedure
CPT/HCPCS: 82948; 99183; A6209; G0277

== ENCOUNTER → 2025-02-21 | Outpatient (CLI) | payer MEDICARE ==
[~2025-02-21] MED LIST changes: -LIDOCAINE HCL 4% LTA SOL 4 ML VIAL TP ONE
== END | disposition home or self-care (01) ==
LOC: WHH 09:38
PROVIDERS: ATTEND Family Medicine
DX: T86.821 Skin graft (allograft) (autograft) failure (principal); T87.89 Other complications of amputation stump; E11.622 Type 2 diabetes mellitus with other skin ulcer; L98.492 Non-pressure chronic ulcer of skin of other sites with fat layer exposed; E11.42 Type 2 diabetes mellitus with diabetic polyneuropathy; E11.51 Type 2 diabetes mellitus with diabetic peripheral angiopathy without gangrene; E11.22 Type 2 diabetes mellitus with diabetic chronic kidney disease; I13.0 Hypertensive heart and chronic kidney disease with heart failure and stage 1 through stage 4 chronic kidney disease, or unspecified chronic kidney disease; N18.30 Chronic kidney disease, stage 3 unspecified; I50.43 Acute on chronic combined systolic (congestive) and diastolic (congestive) heart failure; E78.5 Hyperlipidemia, unspecified; I25.10 Atherosclerotic heart disease of native coronary artery without angina pectoris; Z90.49 Acquired absence of other specified parts of digestive tract; Z95.5 Presence of coronary angioplasty implant and graft; Z79.899 Other long term (current) drug therapy; Y83.5 Amputation of limb(s) as the cause of abnormal reaction of the patient, or of later complication, without mention of misadventure at the time of the procedure; Y83.2 Surgical operation with anastomosis, bypass or graft as the cause of abnormal reaction of the patient, or of later complication, without mention of misadventure at the time of the procedure
CPT/HCPCS: 82948; G0277

== ENCOUNTER → 2025-02-27 | Outpatient (CLI) | payer MEDICARE | END | disposition home or self-care (01) | LOC: WHH 09:26 | PROVIDERS: ATTEND Family Medicine | DX: T86.821 Skin graft (allograft) (autograft) failure (principal); T87.89 Other complications of amputation stump; E11.622 Type 2 diabetes mellitus with other skin ulcer; L98.492 Non-pressure chronic ulcer of skin of other sites with fat layer exposed; E11.42 Type 2 diabetes mellitus with diabetic polyneuropathy; E11.51 Type 2 diabetes mellitus with diabetic peripheral angiopathy without gangrene; E11.22 Type 2 diabetes mellitus with diabetic chronic kidney disease; I13.0 Hypertensive heart and chronic kidney disease with heart failure and stage 1 through stage 4 chronic kidney disease, or unspecified chronic kidney disease; N18.30 Chronic kidney disease, stage 3 unspecified; I50.43 Acute on chronic combined systolic (congestive) and diastolic (congestive) heart failure; E78.5 Hyperlipidemia, unspecified; I25.10 Atherosclerotic heart disease of native coronary artery without angina pectoris; Z90.49 Acquired absence of other specified parts of digestive tract; Z95.5 Presence of coronary angioplasty implant and graft; Z79.899 Other long term (current) drug therapy; Y83.5 Amputation of limb(s) as the cause of abnormal reaction of the patient, or of later complication, without mention of misadventure at the time of the procedure; Y83.2 Surgical operation with anastomosis, bypass or graft as the cause of abnormal reaction of the patient, or of later complication, without mention of misadventure at the time of the procedure | CPT/HCPCS: 82948; G0277; A6209 ==

== ENCOUNTER → 2025-02-28 | Outpatient (CLI) | payer MEDICARE | END | disposition home or self-care (01) | LOC: WHH 09:36 | PROVIDERS: ATTEND Family Medicine | DX: T86.821 Skin graft (allograft) (autograft) failure (principal); T87.89 Other complications of amputation stump; E11.622 Type 2 diabetes mellitus with other skin ulcer; L98.492 Non-pressure chronic ulcer of skin of other sites with fat layer exposed; E11.42 Type 2 diabetes mellitus with diabetic polyneuropathy; E11.51 Type 2 diabetes mellitus with diabetic peripheral angiopathy without gangrene; E11.22 Type 2 diabetes mellitus with diabetic chronic kidney disease; I13.0 Hypertensive heart and chronic kidney disease with heart failure and stage 1 through stage 4 chronic kidney disease, or unspecified chronic kidney disease; N18.30 Chronic kidney disease, stage 3 unspecified; E78.5 Hyperlipidemia, unspecified; I25.10 Atherosclerotic heart disease of native coronary artery without angina pectoris; Z90.49 Acquired absence of other specified parts of digestive tract; Z95.5 Presence of coronary angioplasty implant and graft; Z79.899 Other long term (current) drug therapy; Y83.5 Amputation of limb(s) as the cause of abnormal reaction of the patient, or of later complication, without mention of misadventure at the time of the procedure; Y83.2 Surgical operation with anastomosis, bypass or graft as the cause of abnormal reaction of the patient, or of later complication, without mention of misadventure at the time of the procedure | CPT/HCPCS: 82948; G0277 ==

== ENCOUNTER → 2025-03-01 | Outpatient (CLI) | payer MEDICARE | END | disposition home or self-care (01) | LOC: WHH 09:36 | PROVIDERS: ATTEND Family Medicine | DX: T86.821 Skin graft (allograft) (autograft) failure (principal); L98.492 Non-pressure chronic ulcer of skin of other sites with fat layer exposed; T87.89 Other complications of amputation stump; E11.622 Type 2 diabetes mellitus with other skin ulcer; E11.42 Type 2 diabetes mellitus with diabetic polyneuropathy; E11.51 Type 2 diabetes mellitus with diabetic peripheral angiopathy without gangrene; E11.22 Type 2 diabetes mellitus with diabetic chronic kidney disease; I13.0 Hypertensive heart and chronic kidney disease with heart failure and stage 1 through stage 4 chronic kidney disease, or unspecified chronic kidney disease; N18.30 Chronic kidney disease, stage 3 unspecified; E78.5 Hyperlipidemia, unspecified; I25.10 Atherosclerotic heart disease of native coronary artery without angina pectoris; Z90.49 Acquired absence of other specified parts of digestive tract; Z95.5 Presence of coronary angioplasty implant and graft; Z79.899 Other long term (current) drug therapy; Y83.5 Amputation of limb(s) as the cause of abnormal reaction of the patient, or of later complication, without mention of misadventure at the time of the procedure; Y83.2 Surgical operation with anastomosis, bypass or graft as the cause of abnormal reaction of the patient, or of later complication, without mention of misadventure at the time of the procedure | CPT/HCPCS: 82948; G0277; A6209 ==

== ENCOUNTER → 2025-03-02 | Outpatient (CLI) | payer MEDICARE | END | disposition home or self-care (01) | LOC: WHH 09:40 | PROVIDERS: ATTEND Family Medicine | DX: T86.821 Skin graft (allograft) (autograft) failure (principal); T87.89 Other complications of amputation stump; E11.622 Type 2 diabetes mellitus with other skin ulcer; L98.492 Non-pressure chronic ulcer of skin of other sites with fat layer exposed; E11.42 Type 2 diabetes mellitus with diabetic polyneuropathy; E11.51 Type 2 diabetes mellitus with diabetic peripheral angiopathy without gangrene; E11.22 Type 2 diabetes mellitus with diabetic chronic kidney disease; I13.0 Hypertensive heart and chronic kidney disease with heart failure and stage 1 through stage 4 chronic kidney disease, or unspecified chronic kidney disease; N18.30 Chronic kidney disease, stage 3 unspecified; E78.5 Hyperlipidemia, unspecified; I25.10 Atherosclerotic heart disease of native coronary artery without angina pectoris; Z90.49 Acquired absence of other specified parts of digestive tract; Z95.5 Presence of coronary angioplasty implant and graft; Z79.899 Other long term (current) drug therapy; Y83.5 Amputation of limb(s) as the cause of abnormal reaction of the patient, or of later complication, without mention of misadventure at the time of the procedure; Y83.2 Surgical operation with anastomosis, bypass or graft as the cause of abnormal reaction of the patient, or of later complication, without mention of misadventure at the time of the procedure | CPT/HCPCS: 82948; G0277 ==

== ENCOUNTER → 2025-03-05 | Outpatient (CLI) | payer MEDICARE | END | disposition home or self-care (01) | LOC: WHH 09:38 | PROVIDERS: ATTEND Family Medicine | DX: T86.821 Skin graft (allograft) (autograft) failure (principal); T87.89 Other complications of amputation stump; E11.622 Type 2 diabetes mellitus with other skin ulcer; L98.492 Non-pressure chronic ulcer of skin of other sites with fat layer exposed; E11.42 Type 2 diabetes mellitus with diabetic polyneuropathy; E11.51 Type 2 diabetes mellitus with diabetic peripheral angiopathy without gangrene; E11.22 Type 2 diabetes mellitus with diabetic chronic kidney disease; I13.0 Hypertensive heart and chronic kidney disease with heart failure and stage 1 through stage 4 chronic kidney disease, or unspecified chronic kidney disease; N18.30 Chronic kidney disease, stage 3 unspecified; E78.5 Hyperlipidemia, unspecified; I25.10 Atherosclerotic heart disease of native coronary artery without angina pectoris; Z90.49 Acquired absence of other specified parts of digestive tract; Z95.5 Presence of coronary angioplasty implant and graft; Z79.899 Other long term (current) drug therapy; Y83.5 Amputation of limb(s) as the cause of abnormal reaction of the patient, or of later complication, without mention of misadventure at the time of the procedure; Y83.2 Surgical operation with anastomosis, bypass or graft as the cause of abnormal reaction of the patient, or of later complication, without mention of misadventure at the time of the procedure | CPT/HCPCS: 82948; G0277 ==

== ENCOUNTER → 2025-03-06 | Outpatient (CLI) | payer MEDICARE | END | disposition home or self-care (01) | LOC: WHH 09:17 | PROVIDERS: ATTEND Family Medicine | DX: T86.821 Skin graft (allograft) (autograft) failure (principal); T87.89 Other complications of amputation stump; E11.622 Type 2 diabetes mellitus with other skin ulcer; L98.492 Non-pressure chronic ulcer of skin of other sites with fat layer exposed; L97.321 Non-pressure chronic ulcer of left ankle limited to breakdown of skin; E11.42 Type 2 diabetes mellitus with diabetic polyneuropathy; E11.22 Type 2 diabetes mellitus with diabetic chronic kidney disease; I13.0 Hypertensive heart and chronic kidney disease with heart failure and stage 1 through stage 4 chronic kidney disease, or unspecified chronic kidney disease; N18.30 Chronic kidney disease, stage 3 unspecified; E78.5 Hyperlipidemia, unspecified; I25.10 Atherosclerotic heart disease of native coronary artery without angina pectoris; Z90.49 Acquired absence of other specified parts of digestive tract; Z95.5 Presence of coronary angioplasty implant and graft; Z79.899 Other long term (current) drug therapy; Y83.5 Amputation of limb(s) as the cause of abnormal reaction of the patient, or of later complication, without mention of misadventure at the time of the procedure; Y83.2 Surgical operation with anastomosis, bypass or graft as the cause of abnormal reaction of the patient, or of later complication, without mention of misadventure at the time of the procedure | CPT/HCPCS: 82948; G0277; A6212; A6209 ==

== ENCOUNTER → 2025-03-07 | Outpatient (CLI) | payer MEDICARE | END | disposition home or self-care (01) | LOC: WHH 09:53 | PROVIDERS: ATTEND Family Medicine | DX: T86.821 Skin graft (allograft) (autograft) failure (principal); T87.81 Dehiscence of amputation stump; E11.622 Type 2 diabetes mellitus with other skin ulcer; L98.492 Non-pressure chronic ulcer of skin of other sites with fat layer exposed; E11.42 Type 2 diabetes mellitus with diabetic polyneuropathy; E11.51 Type 2 diabetes mellitus with diabetic peripheral angiopathy without gangrene; E11.22 Type 2 diabetes mellitus with diabetic chronic kidney disease; I13.0 Hypertensive heart and chronic kidney disease with heart failure and stage 1 through stage 4 chronic kidney disease, or unspecified chronic kidney disease; N18.30 Chronic kidney disease, stage 3 unspecified; I50.43 Acute on chronic combined systolic (congestive) and diastolic (congestive) heart failure; E78.5 Hyperlipidemia, unspecified; I25.10 Atherosclerotic heart disease of native coronary artery without angina pectoris; Z90.49 Acquired absence of other specified parts of digestive tract; Z95.5 Presence of coronary angioplasty implant and graft; Z79.899 Other long term (current) drug therapy; Y83.5 Amputation of limb(s) as the cause of abnormal reaction of the patient, or of later complication, without mention of misadventure at the time of the procedure; Y83.2 Surgical operation with anastomosis, bypass or graft as the cause of abnormal reaction of the patient, or of later complication, without mention of misadventure at the time of the procedure | CPT/HCPCS: 82948; G0277 ==

== ENCOUNTER → 2025-03-08 | Outpatient (CLI) | payer MEDICARE | END | disposition home or self-care (01) | LOC: WHH 09:29 | PROVIDERS: ATTEND Family Medicine | DX: T86.821 Skin graft (allograft) (autograft) failure (principal); T87.89 Other complications of amputation stump; E11.622 Type 2 diabetes mellitus with other skin ulcer; L98.492 Non-pressure chronic ulcer of skin of other sites with fat layer exposed; L97.321 Non-pressure chronic ulcer of left ankle limited to breakdown of skin; E11.42 Type 2 diabetes mellitus with diabetic polyneuropathy; E11.51 Type 2 diabetes mellitus with diabetic peripheral angiopathy without gangrene; E11.22 Type 2 diabetes mellitus with diabetic chronic kidney disease; I13.0 Hypertensive heart and chronic kidney disease with heart failure and stage 1 through stage 4 chronic kidney disease, or unspecified chronic kidney disease; N18.30 Chronic kidney disease, stage 3 unspecified; E78.5 Hyperlipidemia, unspecified; I25.10 Atherosclerotic heart disease of native coronary artery without angina pectoris; Z90.49 Acquired absence of other specified parts of digestive tract; Z95.5 Presence of coronary angioplasty implant and graft; Z79.899 Other long term (current) drug therapy; Y83.5 Amputation of limb(s) as the cause of abnormal reaction of the patient, or of later complication, without mention of misadventure at the time of the procedure; Y83.2 Surgical operation with anastomosis, bypass or graft as the cause of abnormal reaction of the patient, or of later complication, without mention of misadventure at the time of the procedure | CPT/HCPCS: 82948; G0277; A6212; A6209 ==

== ENCOUNTER → 2025-03-09 | Outpatient (CLI) | payer MEDICARE | END | disposition home or self-care (01) | LOC: WHH 09:52 | PROVIDERS: ATTEND Family Medicine | DX: T86.821 Skin graft (allograft) (autograft) failure (principal); T87.89 Other complications of amputation stump; E11.622 Type 2 diabetes mellitus with other skin ulcer; L97.321 Non-pressure chronic ulcer of left ankle limited to breakdown of skin; L98.492 Non-pressure chronic ulcer of skin of other sites with fat layer exposed; E11.42 Type 2 diabetes mellitus with diabetic polyneuropathy; E11.51 Type 2 diabetes mellitus with diabetic peripheral angiopathy without gangrene; E11.22 Type 2 diabetes mellitus with diabetic chronic kidney disease; I13.0 Hypertensive heart and chronic kidney disease with heart failure and stage 1 through stage 4 chronic kidney disease, or unspecified chronic kidney disease; N18.30 Chronic kidney disease, stage 3 unspecified; E78.5 Hyperlipidemia, unspecified; I25.10 Atherosclerotic heart disease of native coronary artery without angina pectoris; Z90.49 Acquired absence of other specified parts of digestive tract; Z95.5 Presence of coronary angioplasty implant and graft; Z79.899 Other long term (current) drug therapy; Y83.5 Amputation of limb(s) as the cause of abnormal reaction of the patient, or of later complication, without mention of misadventure at the time of the procedure; Y83.2 Surgical operation with anastomosis, bypass or graft as the cause of abnormal reaction of the patient, or of later complication, without mention of misadventure at the time of the procedure | CPT/HCPCS: 82948; G0277 ==

== ENCOUNTER → 2025-03-13 | Outpatient (CLI) | payer MEDICARE | END | disposition home or self-care (01) | LOC: WHH 09:16 | PROVIDERS: ATTEND Family Medicine | DX: T86.821 Skin graft (allograft) (autograft) failure (principal); T87.81 Dehiscence of amputation stump; E11.622 Type 2 diabetes mellitus with other skin ulcer; L98.492 Non-pressure chronic ulcer of skin of other sites with fat layer exposed; L97.321 Non-pressure chronic ulcer of left ankle limited to breakdown of skin; E11.51 Type 2 diabetes mellitus with diabetic peripheral angiopathy without gangrene; E11.42 Type 2 diabetes mellitus with diabetic polyneuropathy; E11.22 Type 2 diabetes mellitus with diabetic chronic kidney disease; I13.0 Hypertensive heart and chronic kidney disease with heart failure and stage 1 through stage 4 chronic kidney disease, or unspecified chronic kidney disease; N18.30 Chronic kidney disease, stage 3 unspecified; E78.5 Hyperlipidemia, unspecified; I25.10 Atherosclerotic heart disease of native coronary artery without angina pectoris; Z90.49 Acquired absence of other specified parts of digestive tract; Z95.5 Presence of coronary angioplasty implant and graft; Z79.899 Other long term (current) drug therapy; Y83.5 Amputation of limb(s) as the cause of abnormal reaction of the patient, or of later complication, without mention of misadventure at the time of the procedure; Y83.2 Surgical operation with anastomosis, bypass or graft as the cause of abnormal reaction of the patient, or of later complication, without mention of misadventure at the time of the procedure | CPT/HCPCS: 82948; G0277; A6212; A6209; A4450 ==

== ENCOUNTER → 2025-03-14 | Outpatient (CLI) | payer MEDICARE | END | disposition home or self-care (01) | LOC: WHH 09:39 | PROVIDERS: ATTEND Family Medicine | DX: T86.821 Skin graft (allograft) (autograft) failure (principal); T87.81 Dehiscence of amputation stump; E11.622 Type 2 diabetes mellitus with other skin ulcer; L97.321 Non-pressure chronic ulcer of left ankle limited to breakdown of skin; L98.492 Non-pressure chronic ulcer of skin of other sites with fat layer exposed; E11.51 Type 2 diabetes mellitus with diabetic peripheral angiopathy without gangrene; E11.42 Type 2 diabetes mellitus with diabetic polyneuropathy; E11.22 Type 2 diabetes mellitus with diabetic chronic kidney disease; I13.0 Hypertensive heart and chronic kidney disease with heart failure and stage 1 through stage 4 chronic kidney disease, or unspecified chronic kidney disease; N18.30 Chronic kidney disease, stage 3 unspecified; E78.5 Hyperlipidemia, unspecified; I25.10 Atherosclerotic heart disease of native coronary artery without angina pectoris; Z90.49 Acquired absence of other specified parts of digestive tract; Z95.5 Presence of coronary angioplasty implant and graft; Z79.899 Other long term (current) drug therapy; Y83.5 Amputation of limb(s) as the cause of abnormal reaction of the patient, or of later complication, without mention of misadventure at the time of the procedure; Y83.2 Surgical operation with anastomosis, bypass or graft as the cause of abnormal reaction of the patient, or of later complication, without mention of misadventure at the time of the procedure | CPT/HCPCS: 82948; G0277 ==

== ENCOUNTER → 2025-03-15 | Outpatient (CLI) | payer MEDICARE | END | disposition home or self-care (01) | LOC: WHH 09:20 | PROVIDERS: ATTEND Family Medicine | DX: T86.821 Skin graft (allograft) (autograft) failure (principal); T87.81 Dehiscence of amputation stump; E11.622 Type 2 diabetes mellitus with other skin ulcer; L98.492 Non-pressure chronic ulcer of skin of other sites with fat layer exposed; L97.321 Non-pressure chronic ulcer of left ankle limited to breakdown of skin; E11.51 Type 2 diabetes mellitus with diabetic peripheral angiopathy without gangrene; E11.42 Type 2 diabetes mellitus with diabetic polyneuropathy; E11.22 Type 2 diabetes mellitus with diabetic chronic kidney disease; I13.0 Hypertensive heart and chronic kidney disease with heart failure and stage 1 through stage 4 chronic kidney disease, or unspecified chronic kidney disease; N18.30 Chronic kidney disease, stage 3 unspecified; E78.5 Hyperlipidemia, unspecified; I25.10 Atherosclerotic heart disease of native coronary artery without angina pectoris; Z90.49 Acquired absence of other specified parts of digestive tract; Z95.5 Presence of coronary angioplasty implant and graft; Z79.899 Other long term (current) drug therapy; Y83.5 Amputation of limb(s) as the cause of abnormal reaction of the patient, or of later complication, without mention of misadventure at the time of the procedure; Y83.2 Surgical operation with anastomosis, bypass or graft as the cause of abnormal reaction of the patient, or of later complication, without mention of misadventure at the time of the procedure | CPT/HCPCS: 82948; G0277; A6212; A6209 ==

== ENCOUNTER → 2025-03-16 | Outpatient (CLI) | payer MEDICARE | END | disposition home or self-care (01) | LOC: WHH 09:30 | PROVIDERS: ATTEND Family Medicine | DX: T86.821 Skin graft (allograft) (autograft) failure (principal); T87.89 Other complications of amputation stump; E11.622 Type 2 diabetes mellitus with other skin ulcer; L97.321 Non-pressure chronic ulcer of left ankle limited to breakdown of skin; L98.492 Non-pressure chronic ulcer of skin of other sites with fat layer exposed; E11.42 Type 2 diabetes mellitus with diabetic polyneuropathy; E11.51 Type 2 diabetes mellitus with diabetic peripheral angiopathy without gangrene; E11.22 Type 2 diabetes mellitus with diabetic chronic kidney disease; I13.0 Hypertensive heart and chronic kidney disease with heart failure and stage 1 through stage 4 chronic kidney disease, or unspecified chronic kidney disease; N18.30 Chronic kidney disease, stage 3 unspecified; E78.5 Hyperlipidemia, unspecified; I25.10 Atherosclerotic heart disease of native coronary artery without angina pectoris; Z90.49 Acquired absence of other specified parts of digestive tract; Z95.5 Presence of coronary angioplasty implant and graft; Z79.899 Other long term (current) drug therapy; Y83.5 Amputation of limb(s) as the cause of abnormal reaction of the patient, or of later complication, without mention of misadventure at the time of the procedure; Y83.2 Surgical operation with anastomosis, bypass or graft as the cause of abnormal reaction of the patient, or of later complication, without mention of misadventure at the time of the procedure | CPT/HCPCS: G0277; A6212 ==

== ENCOUNTER → 2025-03-19 | Outpatient (CLI) | payer MEDICARE | END | disposition home or self-care (01) | LOC: WHH 09:17 | PROVIDERS: ATTEND Family Medicine | DX: T86.821 Skin graft (allograft) (autograft) failure (principal); T87.89 Other complications of amputation stump; E11.622 Type 2 diabetes mellitus with other skin ulcer; L97.321 Non-pressure chronic ulcer of left ankle limited to breakdown of skin; L98.492 Non-pressure chronic ulcer of skin of other sites with fat layer exposed; E11.42 Type 2 diabetes mellitus with diabetic polyneuropathy; E11.51 Type 2 diabetes mellitus with diabetic peripheral angiopathy without gangrene; E11.22 Type 2 diabetes mellitus with diabetic chronic kidney disease; I13.0 Hypertensive heart and chronic kidney disease with heart failure and stage 1 through stage 4 chronic kidney disease, or unspecified chronic kidney disease; N18.30 Chronic kidney disease, stage 3 unspecified; E78.5 Hyperlipidemia, unspecified; I25.10 Atherosclerotic heart disease of native coronary artery without angina pectoris; Z90.49 Acquired absence of other specified parts of digestive tract; Z95.5 Presence of coronary angioplasty implant and graft; Z79.899 Other long term (current) drug therapy; Y83.5 Amputation of limb(s) as the cause of abnormal reaction of the patient, or of later complication, without mention of misadventure at the time of the procedure; Y83.2 Surgical operation with anastomosis, bypass or graft as the cause of abnormal reaction of the patient, or of later complication, without mention of misadventure at the time of the procedure | CPT/HCPCS: 82948; G0277 ==

== ENCOUNTER → 2025-03-20 | Outpatient (CLI) | payer MEDICARE | END | disposition home or self-care (01) | LOC: WHH 09:06 | PROVIDERS: ATTEND Family Medicine | DX: T86.821 Skin graft (allograft) (autograft) failure (principal); T87.89 Other complications of amputation stump; E11.622 Type 2 diabetes mellitus with other skin ulcer; L97.321 Non-pressure chronic ulcer of left ankle limited to breakdown of skin; L98.492 Non-pressure chronic ulcer of skin of other sites with fat layer exposed; E11.42 Type 2 diabetes mellitus with diabetic polyneuropathy; E11.51 Type 2 diabetes mellitus with diabetic peripheral angiopathy without gangrene; E11.22 Type 2 diabetes mellitus with diabetic chronic kidney disease; I13.0 Hypertensive heart and chronic kidney disease with heart failure and stage 1 through stage 4 chronic kidney disease, or unspecified chronic kidney disease; N18.30 Chronic kidney disease, stage 3 unspecified; E78.5 Hyperlipidemia, unspecified; I25.10 Atherosclerotic heart disease of native coronary artery without angina pectoris; Z90.49 Acquired absence of other specified parts of digestive tract; Z95.5 Presence of coronary angioplasty implant and graft; Z79.899 Other long term (current) drug therapy; Y83.5 Amputation of limb(s) as the cause of abnormal reaction of the patient, or of later complication, without mention of misadventure at the time of the procedure; Y83.2 Surgical operation with anastomosis, bypass or graft as the cause of abnormal reaction of the patient, or of later complication, without mention of misadventure at the time of the procedure | CPT/HCPCS: G0277; A6212; A6209; A6022; A4450 ==

== ENCOUNTER → 2025-03-21 | Outpatient (CLI) | payer MEDICARE | END | disposition home or self-care (01) | LOC: WHH 09:49 | PROVIDERS: ATTEND Family Medicine | DX: T86.821 Skin graft (allograft) (autograft) failure (principal); T87.89 Other complications of amputation stump; E11.622 Type 2 diabetes mellitus with other skin ulcer; L97.321 Non-pressure chronic ulcer of left ankle limited to breakdown of skin; L98.492 Non-pressure chronic ulcer of skin of other sites with fat layer exposed; E11.42 Type 2 diabetes mellitus with diabetic polyneuropathy; E11.51 Type 2 diabetes mellitus with diabetic peripheral angiopathy without gangrene; E11.22 Type 2 diabetes mellitus with diabetic chronic kidney disease; I13.0 Hypertensive heart and chronic kidney disease with heart failure and stage 1 through stage 4 chronic kidney disease, or unspecified chronic kidney disease; N18.30 Chronic kidney disease, stage 3 unspecified; E78.5 Hyperlipidemia, unspecified; I25.10 Atherosclerotic heart disease of native coronary artery without angina pectoris; Z90.49 Acquired absence of other specified parts of digestive tract; Z95.5 Presence of coronary angioplasty implant and graft; Z79.899 Other long term (current) drug therapy; Y83.5 Amputation of limb(s) as the cause of abnormal reaction of the patient, or of later complication, without mention of misadventure at the time of the procedure; Y83.2 Surgical operation with anastomosis, bypass or graft as the cause of abnormal reaction of the patient, or of later complication, without mention of misadventure at the time of the procedure | CPT/HCPCS: 82948; G0277 ==

== ENCOUNTER → 2025-03-22 | Outpatient (CLI) | payer MEDICARE | END | disposition home or self-care (01) | LOC: WHH 09:17 | PROVIDERS: ATTEND Family Medicine | DX: T86.821 Skin graft (allograft) (autograft) failure (principal); T87.89 Other complications of amputation stump; E11.622 Type 2 diabetes mellitus with other skin ulcer; L97.321 Non-pressure chronic ulcer of left ankle limited to breakdown of skin; L98.492 Non-pressure chronic ulcer of skin of other sites with fat layer exposed; E11.42 Type 2 diabetes mellitus with diabetic polyneuropathy; E11.51 Type 2 diabetes mellitus with diabetic peripheral angiopathy without gangrene; E11.22 Type 2 diabetes mellitus with diabetic chronic kidney disease; I13.0 Hypertensive heart and chronic kidney disease with heart failure and stage 1 through stage 4 chronic kidney disease, or unspecified chronic kidney disease; N18.30 Chronic kidney disease, stage 3 unspecified; E78.5 Hyperlipidemia, unspecified; I25.10 Atherosclerotic heart disease of native coronary artery without angina pectoris; Z90.49 Acquired absence of other specified parts of digestive tract; Z95.5 Presence of coronary angioplasty implant and graft; Z79.899 Other long term (current) drug therapy; Y83.5 Amputation of limb(s) as the cause of abnormal reaction of the patient, or of later complication, without mention of misadventure at the time of the procedure; Y83.2 Surgical operation with anastomosis, bypass or graft as the cause of abnormal reaction of the patient, or of later complication, without mention of misadventure at the time of the procedure | CPT/HCPCS: G0277; A6212; A6209 ==

== ENCOUNTER → 2025-03-23 | Outpatient (CLI) | payer MEDICARE | END | disposition home or self-care (01) | LOC: WHH 09:43 | PROVIDERS: ATTEND Family Medicine | DX: T86.821 Skin graft (allograft) (autograft) failure (principal); T87.89 Other complications of amputation stump; E11.622 Type 2 diabetes mellitus with other skin ulcer; L97.321 Non-pressure chronic ulcer of left ankle limited to breakdown of skin; L98.492 Non-pressure chronic ulcer of skin of other sites with fat layer exposed; E11.42 Type 2 diabetes mellitus with diabetic polyneuropathy; E11.51 Type 2 diabetes mellitus with diabetic peripheral angiopathy without gangrene; E11.22 Type 2 diabetes mellitus with diabetic chronic kidney disease; I13.0 Hypertensive heart and chronic kidney disease with heart failure and stage 1 through stage 4 chronic kidney disease, or unspecified chronic kidney disease; N18.30 Chronic kidney disease, stage 3 unspecified; E78.5 Hyperlipidemia, unspecified; I25.10 Atherosclerotic heart disease of native coronary artery without angina pectoris; Z90.49 Acquired absence of other specified parts of digestive tract; Z95.5 Presence of coronary angioplasty implant and graft; Z79.899 Other long term (current) drug therapy; Y83.5 Amputation of limb(s) as the cause of abnormal reaction of the patient, or of later complication, without mention of misadventure at the time of the procedure; Y83.2 Surgical operation with anastomosis, bypass or graft as the cause of abnormal reaction of the patient, or of later complication, without mention of misadventure at the time of the procedure | CPT/HCPCS: G0277; A6212 ==

== ENCOUNTER → 2025-03-26 | Outpatient (CLI) | payer MEDICARE | END | disposition home or self-care (01) | LOC: WHH 09:36 | PROVIDERS: ATTEND Family Medicine | DX: T86.821 Skin graft (allograft) (autograft) failure (principal); T87.89 Other complications of amputation stump; E11.622 Type 2 diabetes mellitus with other skin ulcer; L97.321 Non-pressure chronic ulcer of left ankle limited to breakdown of skin; L98.491 Non-pressure chronic ulcer of skin of other sites limited to breakdown of skin; E11.42 Type 2 diabetes mellitus with diabetic polyneuropathy; E11.51 Type 2 diabetes mellitus with diabetic peripheral angiopathy without gangrene; E11.22 Type 2 diabetes mellitus with diabetic chronic kidney disease; I13.0 Hypertensive heart and chronic kidney disease with heart failure and stage 1 through stage 4 chronic kidney disease, or unspecified chronic kidney disease; N18.30 Chronic kidney disease, stage 3 unspecified; E78.5 Hyperlipidemia, unspecified; I25.10 Atherosclerotic heart disease of native coronary artery without angina pectoris; Z90.49 Acquired absence of other specified parts of digestive tract; Z95.5 Presence of coronary angioplasty implant and graft; Z79.899 Other long term (current) drug therapy; Y83.5 Amputation of limb(s) as the cause of abnormal reaction of the patient, or of later complication, without mention of misadventure at the time of the procedure; Y83.2 Surgical operation with anastomosis, bypass or graft as the cause of abnormal reaction of the patient, or of later complication, without mention of misadventure at the time of the procedure | CPT/HCPCS: G0277 ==

== ENCOUNTER → 2025-03-29 | Outpatient (CLI) | payer MEDICARE | END | disposition home or self-care (01) | LOC: WHH 09:33 | PROVIDERS: ATTEND Family Medicine | DX: T86.821 Skin graft (allograft) (autograft) failure (principal); T87.89 Other complications of amputation stump; E11.622 Type 2 diabetes mellitus with other skin ulcer; L97.321 Non-pressure chronic ulcer of left ankle limited to breakdown of skin; L98.492 Non-pressure chronic ulcer of skin of other sites with fat layer exposed; E11.42 Type 2 diabetes mellitus with diabetic polyneuropathy; E11.51 Type 2 diabetes mellitus with diabetic peripheral angiopathy without gangrene; E11.22 Type 2 diabetes mellitus with diabetic chronic kidney disease; I13.0 Hypertensive heart and chronic kidney disease with heart failure and stage 1 through stage 4 chronic kidney disease, or unspecified chronic kidney disease; N18.30 Chronic kidney disease, stage 3 unspecified; E78.5 Hyperlipidemia, unspecified; I25.10 Atherosclerotic heart disease of native coronary artery without angina pectoris; Z90.49 Acquired absence of other specified parts of digestive tract; Z95.5 Presence of coronary angioplasty implant and graft; Z79.899 Other long term (current) drug therapy; Y83.5 Amputation of limb(s) as the cause of abnormal reaction of the patient, or of later complication, without mention of misadventure at the time of the procedure; Y83.2 Surgical operation with anastomosis, bypass or graft as the cause of abnormal reaction of the patient, or of later complication, without mention of misadventure at the time of the procedure | CPT/HCPCS: G0277; A6212; A6209; A6022 ==

== ENCOUNTER → 2025-04-09 | Outpatient (CLI) | payer MEDICARE | END | disposition home or self-care (01) | LOC: WHH 10:11 | PROVIDERS: ATTEND Family Medicine | DX: T86.821 Skin graft (allograft) (autograft) failure (principal); T87.81 Dehiscence of amputation stump; E11.622 Type 2 diabetes mellitus with other skin ulcer; L97.321 Non-pressure chronic ulcer of left ankle limited to breakdown of skin; L98.492 Non-pressure chronic ulcer of skin of other sites with fat layer exposed; E11.42 Type 2 diabetes mellitus with diabetic polyneuropathy; E11.51 Type 2 diabetes mellitus with diabetic peripheral angiopathy without gangrene; E11.22 Type 2 diabetes mellitus with diabetic chronic kidney disease; I13.0 Hypertensive heart and chronic kidney disease with heart failure and stage 1 through stage 4 chronic kidney disease, or unspecified chronic kidney disease; N18.30 Chronic kidney disease, stage 3 unspecified; I50.43 Acute on chronic combined systolic (congestive) and diastolic (congestive) heart failure; E78.5 Hyperlipidemia, unspecified; I25.10 Atherosclerotic heart disease of native coronary artery without angina pectoris; Z90.49 Acquired absence of other specified parts of digestive tract; Z95.5 Presence of coronary angioplasty implant and graft; Z79.899 Other long term (current) drug therapy; Y83.5 Amputation of limb(s) as the cause of abnormal reaction of the patient, or of later complication, without mention of misadventure at the time of the procedure; Y83.2 Surgical operation with anastomosis, bypass or graft as the cause of abnormal reaction of the patient, or of later complication, without mention of misadventure at the time of the procedure | CPT/HCPCS: G0277 ==

== ENCOUNTER → 2025-04-10 | Outpatient (CLI) | payer MEDICARE | END | disposition home or self-care (01) | LOC: WHH 09:28 | PROVIDERS: ATTEND Family Medicine | DX: T86.821 Skin graft (allograft) (autograft) failure (principal); T87.81 Dehiscence of amputation stump; E11.622 Type 2 diabetes mellitus with other skin ulcer; L97.321 Non-pressure chronic ulcer of left ankle limited to breakdown of skin; L98.492 Non-pressure chronic ulcer of skin of other sites with fat layer exposed; E11.42 Type 2 diabetes mellitus with diabetic polyneuropathy; E11.51 Type 2 diabetes mellitus with diabetic peripheral angiopathy without gangrene; E11.22 Type 2 diabetes mellitus with diabetic chronic kidney disease; I13.0 Hypertensive heart and chronic kidney disease with heart failure and stage 1 through stage 4 chronic kidney disease, or unspecified chronic kidney disease; N18.30 Chronic kidney disease, stage 3 unspecified; I50.43 Acute on chronic combined systolic (congestive) and diastolic (congestive) heart failure; E78.5 Hyperlipidemia, unspecified; I25.10 Atherosclerotic heart disease of native coronary artery without angina pectoris; Z90.49 Acquired absence of other specified parts of digestive tract; Z95.5 Presence of coronary angioplasty implant and graft; Z79.899 Other long term (current) drug therapy; Y83.5 Amputation of limb(s) as the cause of abnormal reaction of the patient, or of later complication, without mention of misadventure at the time of the procedure; Y83.2 Surgical operation with anastomosis, bypass or graft as the cause of abnormal reaction of the patient, or of later complication, without mention of misadventure at the time of the procedure | CPT/HCPCS: G0277; A6212; A6021; A6209; A4450 ==

== ENCOUNTER → 2025-04-11 | Outpatient (CLI) | payer MEDICARE | END | disposition home or self-care (01) | LOC: WHH 09:41 | PROVIDERS: ATTEND Family Medicine | DX: T86.821 Skin graft (allograft) (autograft) failure (principal); T87.81 Dehiscence of amputation stump; E11.622 Type 2 diabetes mellitus with other skin ulcer; L97.321 Non-pressure chronic ulcer of left ankle limited to breakdown of skin; L98.492 Non-pressure chronic ulcer of skin of other sites with fat layer exposed; E11.42 Type 2 diabetes mellitus with diabetic polyneuropathy; E11.51 Type 2 diabetes mellitus with diabetic peripheral angiopathy without gangrene; E11.22 Type 2 diabetes mellitus with diabetic chronic kidney disease; I13.0 Hypertensive heart and chronic kidney disease with heart failure and stage 1 through stage 4 chronic kidney disease, or unspecified chronic kidney disease; N18.30 Chronic kidney disease, stage 3 unspecified; I50.43 Acute on chronic combined systolic (congestive) and diastolic (congestive) heart failure; E78.5 Hyperlipidemia, unspecified; I25.10 Atherosclerotic heart disease of native coronary artery without angina pectoris; Z90.49 Acquired absence of other specified parts of digestive tract; Z95.5 Presence of coronary angioplasty implant and graft; Z79.899 Other long term (current) drug therapy; Y83.5 Amputation of limb(s) as the cause of abnormal reaction of the patient, or of later complication, without mention of misadventure at the time of the procedure; Y83.2 Surgical operation with anastomosis, bypass or graft as the cause of abnormal reaction of the patient, or of later complication, without mention of misadventure at the time of the procedure | CPT/HCPCS: G0277 ==

== ENCOUNTER → 2025-04-12 | Outpatient (CLI) | payer MEDICARE | END | disposition home or self-care (01) | LOC: WHH 09:40 | PROVIDERS: ATTEND Family Medicine | DX: T86.821 Skin graft (allograft) (autograft) failure (principal); T87.81 Dehiscence of amputation stump; E11.622 Type 2 diabetes mellitus with other skin ulcer; L98.492 Non-pressure chronic ulcer of skin of other sites with fat layer exposed; L97.321 Non-pressure chronic ulcer of left ankle limited to breakdown of skin; E11.42 Type 2 diabetes mellitus with diabetic polyneuropathy; E11.51 Type 2 diabetes mellitus with diabetic peripheral angiopathy without gangrene; E11.22 Type 2 diabetes mellitus with diabetic chronic kidney disease; I13.0 Hypertensive heart and chronic kidney disease with heart failure and stage 1 through stage 4 chronic kidney disease, or unspecified chronic kidney disease; N18.30 Chronic kidney disease, stage 3 unspecified; I50.43 Acute on chronic combined systolic (congestive) and diastolic (congestive) heart failure; E78.5 Hyperlipidemia, unspecified; I25.10 Atherosclerotic heart disease of native coronary artery without angina pectoris; Z90.49 Acquired absence of other specified parts of digestive tract; Z95.5 Presence of coronary angioplasty implant and graft; Z79.899 Other long term (current) drug therapy; Y83.5 Amputation of limb(s) as the cause of abnormal reaction of the patient, or of later complication, without mention of misadventure at the time of the procedure; Y83.2 Surgical operation with anastomosis, bypass or graft as the cause of abnormal reaction of the patient, or of later complication, without mention of misadventure at the time of the procedure | CPT/HCPCS: G0277; A6212; A6209; A6022 ==

== ENCOUNTER → 2025-04-13 | Outpatient (CLI) | payer MEDICARE | END | disposition home or self-care (01) | LOC: WHH 10:26 | PROVIDERS: ATTEND Family Medicine | DX: T86.821 Skin graft (allograft) (autograft) failure (principal); T87.81 Dehiscence of amputation stump; E11.622 Type 2 diabetes mellitus with other skin ulcer; L97.321 Non-pressure chronic ulcer of left ankle limited to breakdown of skin; L98.492 Non-pressure chronic ulcer of skin of other sites with fat layer exposed; E11.42 Type 2 diabetes mellitus with diabetic polyneuropathy; E11.51 Type 2 diabetes mellitus with diabetic peripheral angiopathy without gangrene; E11.22 Type 2 diabetes mellitus with diabetic chronic kidney disease; I13.0 Hypertensive heart and chronic kidney disease with heart failure and stage 1 through stage 4 chronic kidney disease, or unspecified chronic kidney disease; N18.30 Chronic kidney disease, stage 3 unspecified; E78.5 Hyperlipidemia, unspecified; I25.10 Atherosclerotic heart disease of native coronary artery without angina pectoris; Z90.49 Acquired absence of other specified parts of digestive tract; Z95.5 Presence of coronary angioplasty implant and graft; Z79.899 Other long term (current) drug therapy; Y83.5 Amputation of limb(s) as the cause of abnormal reaction of the patient, or of later complication, without mention of misadventure at the time of the procedure; Y83.2 Surgical operation with anastomosis, bypass or graft as the cause of abnormal reaction of the patient, or of later complication, without mention of misadventure at the time of the procedure | CPT/HCPCS: G0277; A6212 ==

== ENCOUNTER → 2025-04-17 | Outpatient (CLI) | payer MEDICARE | END | disposition home or self-care (01) | LOC: WHH 08:48 | PROVIDERS: ATTEND Family Medicine | DX: T86.821 Skin graft (allograft) (autograft) failure (principal); T87.81 Dehiscence of amputation stump; E11.622 Type 2 diabetes mellitus with other skin ulcer; L97.321 Non-pressure chronic ulcer of left ankle limited to breakdown of skin; L98.492 Non-pressure chronic ulcer of skin of other sites with fat layer exposed; E11.42 Type 2 diabetes mellitus with diabetic polyneuropathy; E11.51 Type 2 diabetes mellitus with diabetic peripheral angiopathy without gangrene; E11.22 Type 2 diabetes mellitus with diabetic chronic kidney disease; I13.0 Hypertensive heart and chronic kidney disease with heart failure and stage 1 through stage 4 chronic kidney disease, or unspecified chronic kidney disease; N18.30 Chronic kidney disease, stage 3 unspecified; I50.23 Acute on chronic systolic (congestive) heart failure; E78.5 Hyperlipidemia, unspecified; I25.10 Atherosclerotic heart disease of native coronary artery without angina pectoris; Z90.49 Acquired absence of other specified parts of digestive tract; Z95.5 Presence of coronary angioplasty implant and graft; Z79.899 Other long term (current) drug therapy; Y83.5 Amputation of limb(s) as the cause of abnormal reaction of the patient, or of later complication, without mention of misadventure at the time of the procedure; Y83.2 Surgical operation with anastomosis, bypass or graft as the cause of abnormal reaction of the patient, or of later complication, without mention of misadventure at the time of the procedure | CPT/HCPCS: G0463; A6212; A6021; A6209 ==

== ENCOUNTER → 2025-05-01 | Outpatient (CLI) | payer MEDICARE | END | disposition home or self-care (01) | LOC: WHH 09:07 | PROVIDERS: ATTEND Family Medicine | DX: T87.81 Dehiscence of amputation stump (principal); T86.821 Skin graft (allograft) (autograft) failure; E11.622 Type 2 diabetes mellitus with other skin ulcer; L97.321 Non-pressure chronic ulcer of left ankle limited to breakdown of skin; L98.492 Non-pressure chronic ulcer of skin of other sites with fat layer exposed; E11.42 Type 2 diabetes mellitus with diabetic polyneuropathy; E11.51 Type 2 diabetes mellitus with diabetic peripheral angiopathy without gangrene; E11.22 Type 2 diabetes mellitus with diabetic chronic kidney disease; I13.0 Hypertensive heart and chronic kidney disease with heart failure and stage 1 through stage 4 chronic kidney disease, or unspecified chronic kidney disease; N18.30 Chronic kidney disease, stage 3 unspecified; I50.23 Acute on chronic systolic (congestive) heart failure; E78.5 Hyperlipidemia, unspecified; I25.10 Atherosclerotic heart disease of native coronary artery without angina pectoris; Z90.710 Acquired absence of both cervix and uterus; Z90.49 Acquired absence of other specified parts of digestive tract; Z95.5 Presence of coronary angioplasty implant and graft; Z79.899 Other long term (current) drug therapy; Y83.5 Amputation of limb(s) as the cause of abnormal reaction of the patient, or of later complication, without mention of misadventure at the time of the procedure; Y83.2 Surgical operation with anastomosis, bypass or graft as the cause of abnormal reaction of the patient, or of later complication, without mention of misadventure at the time of the procedure | CPT/HCPCS: G0463; A6212; A6021; A6209 ==

== ENCOUNTER → 2025-05-08 | Outpatient (CLI) | payer MEDICARE ==
[~2025-05-08] MED LIST changes: +LIDOCAINE HCL 4% LTA SOL 4 ML VIAL TP ONE
== END | disposition home or self-care (01) ==
LOC: WHH 08:50
PROVIDERS: ATTEND Family Medicine
DX: T87.81 Dehiscence of amputation stump (principal); T86.821 Skin graft (allograft) (autograft) failure; E11.622 Type 2 diabetes mellitus with other skin ulcer; L98.492 Non-pressure chronic ulcer of skin of other sites with fat layer exposed; E11.621 Type 2 diabetes mellitus with foot ulcer; L97.421 Non-pressure chronic ulcer of left heel and midfoot limited to breakdown of skin; E11.42 Type 2 diabetes mellitus with diabetic polyneuropathy; E11.51 Type 2 diabetes mellitus with diabetic peripheral angiopathy without gangrene; E11.22 Type 2 diabetes mellitus with diabetic chronic kidney disease; I13.0 Hypertensive heart and chronic kidney disease with heart failure and stage 1 through stage 4 chronic kidney disease, or unspecified chronic kidney disease; N18.30 Chronic kidney disease, stage 3 unspecified; I50.23 Acute on chronic systolic (congestive) heart failure; E78.5 Hyperlipidemia, unspecified; I25.10 Atherosclerotic heart disease of native coronary artery without angina pectoris; Z90.710 Acquired absence of both cervix and uterus; Z90.49 Acquired absence of other specified parts of digestive tract; Z95.5 Presence of coronary angioplasty implant and graft; Z79.899 Other long term (current) drug therapy; Y83.5 Amputation of limb(s) as the cause of abnormal reaction of the patient, or of later complication, without mention of misadventure at the time of the procedure; Y83.2 Surgical operation with anastomosis, bypass or graft as the cause of abnormal reaction of the patient, or of later complication, without mention of misadventure at the time of the procedure
CPT/HCPCS: G0463; A6212; A6021; A6209

== ENCOUNTER → 2025-05-15 | Outpatient (CLI) | payer MEDICARE | END | disposition home or self-care (01) | LOC: WHH 08:38 | PROVIDERS: ATTEND Family Medicine | DX: T87.81 Dehiscence of amputation stump (principal); T86.821 Skin graft (allograft) (autograft) failure; E11.622 Type 2 diabetes mellitus with other skin ulcer; L98.492 Non-pressure chronic ulcer of skin of other sites with fat layer exposed; E11.621 Type 2 diabetes mellitus with foot ulcer; L97.421 Non-pressure chronic ulcer of left heel and midfoot limited to breakdown of skin; E11.42 Type 2 diabetes mellitus with diabetic polyneuropathy; E11.51 Type 2 diabetes mellitus with diabetic peripheral angiopathy without gangrene; E11.22 Type 2 diabetes mellitus with diabetic chronic kidney disease; I13.0 Hypertensive heart and chronic kidney disease with heart failure and stage 1 through stage 4 chronic kidney disease, or unspecified chronic kidney disease; N18.30 Chronic kidney disease, stage 3 unspecified; I50.23 Acute on chronic systolic (congestive) heart failure; E78.5 Hyperlipidemia, unspecified; I25.10 Atherosclerotic heart disease of native coronary artery without angina pectoris; Z90.710 Acquired absence of both cervix and uterus; Z90.49 Acquired absence of other specified parts of digestive tract; Z95.5 Presence of coronary angioplasty implant and graft; Z79.899 Other long term (current) drug therapy; Y83.5 Amputation of limb(s) as the cause of abnormal reaction of the patient, or of later complication, without mention of misadventure at the time of the procedure; Y83.2 Surgical operation with anastomosis, bypass or graft as the cause of abnormal reaction of the patient, or of later complication, without mention of misadventure at the time of the procedure | CPT/HCPCS: G0463; A6212; A6209 ==

== ENCOUNTER 2025-05-22 08:46 | Outpatient (CLI) | payer MEDICARE ==
[~2025-05-22 08:46] MED LIST changes: -LIDOCAINE HCL 4% LTA SOL 4 ML VIAL TP ONE
== END 2025-05-22 15:47 | disposition home or self-care (01) ==
LOC: WHH 08:46
PROVIDERS: ATTEND Family Medicine
DX: T87.81 Dehiscence of amputation stump (principal); T86.821 Skin graft (allograft) (autograft) failure; E11.622 Type 2 diabetes mellitus with other skin ulcer; L98.492 Non-pressure chronic ulcer of skin of other sites with fat layer exposed; E11.621 Type 2 diabetes mellitus with foot ulcer; L97.421 Non-pressure chronic ulcer of left heel and midfoot limited to breakdown of skin; E11.42 Type 2 diabetes mellitus with diabetic polyneuropathy; E11.51 Type 2 diabetes mellitus with diabetic peripheral angiopathy without gangrene; E11.22 Type 2 diabetes mellitus with diabetic chronic kidney disease; I13.0 Hypertensive heart and chronic kidney disease with heart failure and stage 1 through stage 4 chronic kidney disease, or unspecified chronic kidney disease; N18.30 Chronic kidney disease, stage 3 unspecified; I50.23 Acute on chronic systolic (congestive) heart failure; E78.5 Hyperlipidemia, unspecified; I25.10 Atherosclerotic heart disease of native coronary artery without angina pectoris; Z90.710 Acquired absence of both cervix and uterus; Z90.49 Acquired absence of other specified parts of digestive tract; Z95.5 Presence of coronary angioplasty implant and graft; Z79.899 Other long term (current) drug therapy; Y83.5 Amputation of limb(s) as the cause of abnormal reaction of the patient, or of later complication, without mention of misadventure at the time of the procedure; Y83.2 Surgical operation with anastomosis, bypass or graft as the cause of abnormal reaction of the patient, or of later complication, without mention of misadventure at the time of the procedure
CPT/HCPCS: G0463